=== PATIENT | female | born 1950 | race Caucasian/White ===

== ENCOUNTER → 2016-11-03 | Outpatient (CLI) | payer MEDICARE ==
--- NOTE | 2016-11-03 15:48 | XR ---
EXAMINATION TYPE: XR cervical spine comp DATE OF EXAM ORDERED: 11/03/2016 3:06 PM HISTORY: Neck pain and headaches. COMPARISON: None. FINDINGS: Vertebral body height and alignment are maintained. Atlantoaxial relationships are normal. There is disc space loss and hypertrophic spondylosis at C5-6. There is uncovertebral joint disease at this level. There is intervertebral foraminal narrowing on the right at C3-4, C4-5 and C5-6, maxim al at C5-6 and there is mild intervertebral foraminal narrowing at C4-5 and C5-6 on the left. IMPRESSION: 1. NO ACUTE OSSEOUS LESION. 2. DEGENERATIVE CHANGE. 3. MULTILEVEL INTERVERTEBRAL FORAMINAL NARROWING, MOST SEVERE AT C5-6 ON THE RIGHT.
== END | disposition home or self-care (01) ==
LOC: RADXRMAIN 14:36
PROVIDERS: ATTEND Internal Medicine
DX: M99.71 Connective tissue and disc stenosis of intervertebral foramina of cervical region (principal); M47.812 Spondylosis without myelopathy or radiculopathy, cervical region; R51 Headache
CPT/HCPCS: 72050

== ENCOUNTER 2016-11-14 10:50 | Emergency (ER) | payer MEDICARE ==
[2016-11-14 11:01] VITALS: BP 137/81; PULSE 76; RESP 20; TEMP 98.8
--- NOTE | 2016-11-14 11:18 | ED ---
Wound/Laceration HPI - General Chief Complaint: Wound/Laceration Stated Complaint: foot injury Time Seen by Provider: 11/14/16 11:08 Source: patient Mode of arrival: ambulatory Limitations: no limitations - History of Present Illness Initial Comments: This 66-year-old white female presents complaining of a left heel wound. She barely had a pedicure 4 days ago. They prescription off some skin around her heel. This caused a slight abrasion. The area has gradually swelled, and developed some erythema which has progressively worsened over the last 4 days. She has some minimal pain. She is not up-to-date on her tetanus prophylaxis and would like a tetanus shot. She's been applying peroxide as well as antibiotic ointment. No other complaints or modifying factors. No fevers or chills. - Related Data Home Medications Medication Instructions Recorded Confirmed ALPRAZolam [Xanax] 0.5 mg PO BID 07/01/16 07/23/16 Aspirin EC [Ecotrin Low Dose] 81 mg PO DAILY 07/01/16 07/23/16 HYDROcodone/APAP 5-325MG [[place] 1 tab PO Q6H PRN 07/01/16 07/23/16 5-325] Simvastatin [Zocor] 40 mg PO HS 07/01/16 07/23/16 Cranberry Fruit Concentrate 4,200 mg PO DIRECTED 07/22/16 07/23/16 [Cranberry] Previous Rx's Medication Instructions Recorded HYDROcodone/APAP 7.5-325MG [[place] 1 each PO Q4H PRN #60 tab 07/23/16 7.5] Sulfamethox-Tmp 800-160Mg [Bactrim 1 tab PO Q12HR #20 tab 11/14/16 DS 800-160 mg] Allergies Allergy/AdvReac Type Severity Reaction Status Date / Time Iodinated Contrast Media - Allergy Swelling, Verified 11/14/16 11:01 Oral and "welts" [Iodinated Contrast Media - IV Dye] Latex, Natural Rubber Allergy Rash/Hives Verified 11/14/16 11:01 Review of Systems ROS Statement: Those systems with pertinent positive or pertinent negative responses have been documented in the HPI. ROS Other: All systems not noted in ROS Statement are negative. Past Medical History Past Medical History: Hyperlipidemia, Osteoarthritis (OA) Additional Past Medical History / Comment(s): Kidney Stones. HX SURG for menorrhagia, fibroids. UA SHOWED SL BLOOD LAST MO, NO KNOWN REASON. History of Any Multi-Drug Resistant Organisms: None Reported Past Surgical History: Cholecystectomy, Hysterectomy, Orthopedic Surgery Additional Past Surgical History / Comment(s): ORIF LFA - 2 PLATES. Past Anesthesia/Blood Transfusion Reactions: No Reported Reaction Past Psychological History: ADD/ADHD, Panic Disorder Additional Psychological History / Comment(s): PATIENT REQUESTS RX ZEE ON ARRIVAL TO PREVENT PANIC ATTACK Smoking Status: Current every day smoker Past Alcohol Use History: Occasional Additional Past Alcohol Use History / Comment(s): SMOKING X15 YEARS, 1/2 PPD. Past Drug Use History: None Reported - Past Family History Mother Family Medical History: No Reported History General Exam Limitations: no limitations Extremities exam: Present: full ROM, other (Strength intact.) Neurological exam: Present: oriented X3 Skin exam: Present: other (There are 2 small abrasions noted to the left heel. There is some mild associated erythema and slight tenderness. There may be some minimal swelling.) Course Vital Signs 11/14/16 10:58 Temperature 98.8 F Pulse Rate 76 Respiratory 20 Rate Blood Pressure 137/81 O2 Sat by Pulse 98 Oximetry Medical Decision Making - Medical Decision Making The patient was seen and examined. A tetanus prophylaxis is given. It is felt as though she may have some mild cellulitis around the to abrasions. She is instructed to stop applying peroxide to the wound but continue with antibiotic ointment and to keep it covered. She understands and agrees with this plan and leaves in no distress. Return parameters are discussed. Disposition Clinical Impression: Abrasion, Cellulitis Disposition: HOME SELF-CARE Condition: Good Instructions: Abrasion (ED), Cellulitis (ED) Prescriptions: Sulfamethox-Tmp 800-160Mg [Bactrim DS 800-160 mg] 1 tab PO Q12HR #20 tab Referrals: Leo Rogers MD [Primary Care Provider] - 11/18/16 Time of Disposition: 11:17
[2016-11-14] MEDS ORDERED: DIPH,PERTUS(ACELL)TETVAC-LF 0.5 ML VIAL IM ONE (11:31)
== END 2016-11-14 11:57 | disposition home or self-care (01) ==
LOC: EC 10:50
DX: L03.116 Cellulitis of left lower limb (principal); M19.90 Unspecified osteoarthritis, unspecified site; E78.5 Hyperlipidemia, unspecified; F41.0 Panic disorder [episodic paroxysmal anxiety]; F17.200 Nicotine dependence, unspecified, uncomplicated; Z23 Encounter for immunization; Z79.82 Long term (current) use of aspirin; Z79.899 Other long term (current) drug therapy; Z91.041 Radiographic dye allergy status; Z91.040 Latex allergy status
CPT/HCPCS: 90471; 90715; 99282

== ENCOUNTER → 2017-03-30 | Outpatient (CLI) | payer MEDICARE ==
[2017-03-30 12:04] LABS: ALT 28 U/L (9-52); AST 18 U/L (14-36); Alkaline Phosphatase 75 U/L (38-126); Anion Gap 9 mmol/L; Blood Urea Nitrogen 13 mg/dL (7-17); Calcium 9.3 mg/dL (8.4-10.2); Carbon Dioxide 25 mmol/L (22-30); Chloride 110 mmol/L (98-107); Cholesterol 209 mg/dL (<200); Glucose 100 mg/dL (74-99); HDL Cholesterol 37 mg/dL (40-60); Non-African American GFR(MDRD) >60 (>60 ml/min/1.73 sqM); Potassium 4.2 mmol/L (3.5-5.1); Sodium 144 mmol/L (137-145); Total Bilirubin 0.4 mg/dL (0.2-1.3); Total Protein 7.4 g/dL (6.3-8.2); Triglycerides 269 mg/dL (<150)
[2017-03-30 12:08] LABS: CH 30.4; CHCM 33.5; HCT 40.1 % (34.0-46.0); HDW 2.75; HGB 13.5 gm/dL (11.4-16.0); MCH 30.8 pg (25.0-35.0); MCHC 33.8 g/dL (31.0-37.0); MCV 91.2 fL (80.0-100.0); Mean Platelet Volume 9.2; RDW 13.9 % (11.5-15.5); WBC 6.9 k/uL (3.8-10.6)
[2017-03-30 12:35] LABS: Hepatitis B Surface Ag Index 0.07
[2017-03-30 12:41] LABS: Hepatitis B Core IgM Index 0.06
[2017-03-30 12:52] LABS: Hepatitis C Virus IgG Ab Negative (Negative); Hepatitis C Virus IgG Index 0.04
== END | disposition home or self-care (01) ==
LOC: LABWHC1 11:18
PROVIDERS: ATTEND Internal Medicine
DX: Z00.01 Encounter for general adult medical examination with abnormal findings (principal); E78.2 Mixed hyperlipidemia; M19.90 Unspecified osteoarthritis, unspecified site; R94.5 Abnormal results of liver function studies; R10.9 Unspecified abdominal pain
CPT/HCPCS: 36415; 80053; 80061; 80074; 84439; 84443; 85027

== ENCOUNTER 2017-05-08 12:27 | Emergency (ER) | payer MEDICARE ==
[2017-05-08] MEDS ORDERED: SODIUM CHLORIDE 0.9% 1,000 ML IV STA ×2 (14:44)
[2017-05-08] MEDS ORDERED: ONDANSETRON 4 MG/2 ML VIAL IVP STA (14:44)
[2017-05-08] MEDS ORDERED: HYDROmorphone 1 MG/ML 1 ML SYRINGE IVP STA ×2 (14:44→15:28)
[2017-05-08 14:58] LABS: Basophils # (A) 0.1 k/uL (0-0.2); Basophils % (A) 1 %; CH 31.7; Eosinophils # (A) 0.2 k/uL (0-0.7); Eosinophils % (A) 2 %; HCT 43.2 % (34.0-46.0); HDW 2.64; HGB 14.1 gm/dL (11.4-16.0); Luc # (Auto) 0.14; Luc % (Auto) 2; Lymphocytes # (A) 1.7 k/uL (1.0-4.8); Lymphocytes % (A) 22 %; MCH 30.6 pg (25.0-35.0); MCHC 32.5 g/dL (31.0-37.0); Mean Platelet Volume 7.8; Monocytes # (A) 0.4 k/uL (0-1.0); Monocytes % (A) 5 %; Neutrophils # (A) 5.2 k/uL (1.3-7.7); Neutrophils % (A) 68 %; RDW 14.9 % (11.5-15.5); WBC 7.7 k/uL (3.8-10.6); WBC (Perox) 7.41
--- NOTE | 2017-05-08 15:06 | ED ---
General Adult HPI - General Chief complaint: Abdominal Pain Stated complaint: Abd Pain-poss kidney stones Time Seen by Provider: 05/08/17 14:38 Source: patient, RN notes reviewed Mode of arrival: ambulatory Limitations: no limitations - History of Present Illness Initial comments: Chief complaint history of present illness is a 66-year-old female complaining of on again off again pain in the right flank radiates around toward the right abdomen area. Mild nausea but no vomiting. Patient has had history of kidney stones several times in the past. Patient thinks another kidney stone. This particular pain has been ongoing for one week. The patient does state when questioned if she had noticed any dark urine she's had on several occasions and looked very red. She continues drinking large amounts of fluid until it cleared. We did discuss possibility of a kidney or bladder tumor causing this. The patient has an ALLERGY to iodine contrast. A regular CT without contrast will be done at this time. She'll be following up with her family doctor and urology. - Related Data Home Medications Medication Instructions Recorded Confirmed Aspirin EC [Ecotrin Low Dose] 81 mg PO DAILY 07/01/16 05/08/17 Levothyroxine Sodium [Synthroid] 25 mcg PO DAILY 05/08/17 05/08/17 Previous Rx's Medication Instructions Recorded Hydrocodone/Acetaminophen [[place] 1 each PO Q6HR PRN #15 tab 05/08/17 5-325] Metoclopramide HCl [Reglan] 10 mg PO Q8H #9 tablet 05/08/17 Tamsulosin [Flomax] 0.4 mg PO DAILY #14 cap 05/08/17 Allergies Allergy/AdvReac Type Severity Reaction Status Date / Time Iodinated Contrast- Oral and Allergy Swelling, Verified 05/08/17 14:53 IV Dye "welts" [Iodinated Contrast Media - IV Dye] Latex, Natural Rubber Allergy Rash/Hives Verified 05/08/17 14:53 Review of Systems ROS Statement: Those systems with pertinent positive or pertinent negative responses have been documented in the HPI. Review of systems no headache or visual acuity changes no chest pain or shortness of breath minimal nausea. Discomfort in the right flank coming around towards the right mid abdomen. Decreased appetite. No complaint of any neuro deficits. All systems are reviewed. Past medical problems significant for hyperlipidemia, osteoarthritis, kidney stones on 2 previous occasions. Surgeries gallbladder, hysterectomy, open reduction internal fixation over 40 years ago to left forearm fracture. Family history daughter has kidney stones. Patient does smoke strongly encouraged stop , drinks alcohol socially. ROS Other: All systems not noted in ROS Statement are negative. Past Medical History Past Medical History: Hyperlipidemia, Osteoarthritis (OA) Additional Past Medical History / Comment(s): Kidney Stones. HX SURG for menorrhagia, fibroids. UA SHOWED SL BLOOD LAST MO, NO KNOWN REASON. History of Any Multi-Drug Resistant Organisms: None Reported Past Surgical History: Cholecystectomy, Hysterectomy, Orthopedic Surgery Additional Past Surgical History / Comment(s): ORIF LFA - 2 PLATES. Past Anesthesia/Blood Transfusion Reactions: No Reported Reaction Past Psychological History: ADD/ADHD, Panic Disorder Smoking Status: Current every day smoker Past Alcohol Use History: Occasional Past Drug Use History: None Reported - Past Family History Mother Family Medical History: No Reported History General Exam - General Exam Comments Initial Comments: General: The patient is awake and alert, complaining of discomfort to the right flank radiates toward the right mid abdomen. History of kidney stones in the past. Patient thinks she had another kidney stone. Vital signs shows temperature 97.4 pulse 65 respiratory rate 24 pulse ox on percent room air blood pressure 175/79 Eye: Pupils are equal, round and reactive to light, extra-ocular movements are intact ; there is normal conjunctiva bilaterally. No signs of icterus. Ears, nose, mouth and throat: There are moist mucous membranes and no oral lesions. Neck: The neck is supple, there is no tenderness . Cardiovascular: There is a regular rate and rhythm. No murmur, rub or gallop is appreciated. Respiratory: Lungs are clear to auscultation, respirations are non-labored, breath sounds are equal. No wheezes, stridor, rales, or rhonchi. Gastrointestinal: Right flank discomfort radiates to the mid right abdomen. No organomegaly. Positive right flank discomfort with kidney punch his. Back: No rash noted. Positive discomfort with right kidney punch is Musculoskeletal: Normal ROM, no tenderness, There is no pedal edema. There is no calf tenderness or swelling. Sensation intact. Pulses equal bilaterally 2+. Neurological: No evidence of her complains of any neuro deficits walking talking balance good. Skin: Skin is warm and dry and no rashes or lesions are noted. Limitations: no limitations Course Vital Signs 05/08/17 05/08/17 12:29 14:26 Temperature 98.9 F 97.4 F L Pulse Rate 77 65 Respiratory 20 24 Rate Blood Pressure 152/71 175/79 O2 Sat by Pulse 99 100 Oximetry Medical Decision Making - Medical Decision Making Medical decision making patient's white count 7.7 hemoglobin 14 hematocrit of 4.3, potassium 4.2 with a BUN 8 creatinine 0.6 GFR greater than 60. Glucose 84 amylase lipase normal limits. Urine shows 4 red less than 1 white. No signs of bacteria. X-ray of the abdomen was done and reviewed by radiologist her findings are scattered gas is seen in nondistended small bowel loops. Moderate amount of retained stool is within the nondistended colon. There is no visceromegaly, pneumoperitoneum, or abnormal calcifications appreciated. The lung bases are clear and the osseous structures are intact. Impression nonobstructive bowel gas pattern with moderate amount of retained colonic stool. As read by Dr. Lynch CT the abdomen and pelvis was done and reevaluation of possible kidney stone. The significant findings by the radiologist include low-density 1.2 cm right adrenal gland nodule fits criteria for lipid to Darryl adrenal gland adenoma. There is re-demonstration of unchanged diffuse thickening of the left adrenal gland, likely related to adrenal gland hyperplasia. Kidneys; mild right hydronephrosis and proximal hydroureter as well as minimal right ureteral uroepithelial thickening are appreciated, likely secondary to a recently passed calculus as no ureteral calculi are seen although a phlebolith is seen just adjacent to the right distal ureter. Punctate left upper pole nonobstructing renal calculus is appreciated. The previously seen hypodense lesion within the posterior upper pole of the right kidney is again too small to accurately characterize it better appreciated on the contrast enhanced imaging prior examination of 07-01-2016. Uterus is again surgically absent left ovarian cyst is stable from the prior exam measuring 2.4 cm. Impression #1 mild right [place] ureteronephrosis and ureteral hyperemia with no radiopaque calculus. Findings likely related to recently passed calculus or non-radiopaque calculus. #2 punctate nonobstructing left renal calculus. #3 unchanged 2.4 cm left ovarian cystic lesion. And he will follow up with ultrasound is recommended in a postmenopausal female. As read by Dr. Lynch I discussed with the patient and at bedside the findings of both the kidney, ureter, possible non-radiopaque or passed stone. As well as ovarian cystic lesion that needs follow-up with [facility]. The patient was advised to take medications for renal pain including Flomax, pain medication and antinausea medications and increase fluids and strain her urine. Advised to follow-up with urology for evaluation of the hypodense lesion in the kidney we did discuss possibility of kidney tumors. Also follow- up with [facility] for the left ovarian cyst. On discharge patient is feeling better. - Lab Data Result diagrams: 05/08/17 14:40 05/08/17 14:40 Lab Results 05/08/17 05/08/17 05/08/17 Range/Units 14:40 14:40 14:50 WBC 7.7 (3.8-10.6) k/uL RBC 4.60 (3.80-5.40) m/uL Hgb 14.1 (11.4-16.0) gm/dL Hct 43.2 (34.0-46.0) % MCV 94.0 (80.0-100.0) fL MCH 30.6 (25.0-35.0) pg MCHC 32.5 (31.0-37.0) g/dL RDW 14.9 (11.5-15.5) % Plt Count 227 (150-450) k/uL Neutrophils % 68 % Lymphocytes % 22 % Monocytes % 5 % Eosinophils % 2 % Basophils % 1 % Neutrophils # 5.2 (1.3-7.7) k/uL Lymphocytes # 1.7 (1.0-4.8) k/uL Monocytes # 0.4 (0-1.0) k/uL Eosinophils # 0.2 (0-0.7) k/uL Basophils # 0.1 (0-0.2) k/uL Sodium 144 (137-145) mmol/L Potassium 4.2 (3.5-5.1) mmol/L Chloride 109 H (98-107) mmol/L Carbon Dioxide 24 (22-30) mmol/L Anion Gap 11 mmol/L BUN 8 (7-17) mg/dL Creatinine 0.60 (0.52-1.04) mg/dL Est GFR (MDRD) Af Amer >60 (>60 ml/min/1.73 sqM) Est GFR (MDRD) Non-Af >60 (>60 ml/min/1.73 sqM) Glucose 84 (74-99) mg/dL Calcium 9.5 (8.4-10.2) mg/dL Total Bilirubin 0.4 (0.2-1.3) mg/dL AST 18 (14-36) U/L ALT 37 (9-52) U/L Alkaline Phosphatase 74 (38-126) U/L Total Protein 7.2 (6.3-8.2) g/dL Albumin 4.2 (3.5-5.0) g/dL Amylase 41 (30-110) U/L Lipase 56 (23-300) U/L Urine Color Light Yellow Urine Appearance Clear (Clear) Urine pH 7.0 (5.0-8.0) Ur Specific [place] 1.005 (1.001-1.035) Urine Protein Negative (Negative) Urine Glucose (UA) Negative (Negative) Urine Ketones Negative (Negative) Urine Blood Small H (Negative) Urine Nitrite Negative (Negative) Urine Bilirubin Negative (Negative) Urine Urobilinogen <2.0 (<2.0) mg/dL Ur Leukocyte Esterase Negative (Negative) Urine RBC 4 (0-5) /hpf Urine WBC <1 (0-5) /hpf Ur Squamous Epith Cells <1 (0-4) /hpf Urine Mucus Rare H (None) /hpf Disposition Clinical Impression: Kidney stone on right side Disposition: HOME SELF-CARE Condition: Fair Instructions: Kidney Stones (ED), Renal Colic (ED), How to Strain Your Urine ( ED) Additional Instructions: Strain her urine, increase fluids. Take medications as directed. Follow-up with urology for further evaluation concerning the hypodense lesion within the right kidney. Follow-up with your [facility] for left ovarian cyst Prescriptions: Hydrocodone/Acetaminophen [[place] 5-325] 1 each PO Q6HR PRN #15 tab PRN Reason: Pain Metoclopramide HCl [Reglan] 10 mg PO Q8H #9 tablet Tamsulosin [Flomax] 0.4 mg PO DAILY #14 cap Referrals: Leo Rogers MD [Primary Care Provider] - 1-2 days Time of Disposition: 17:40
[2017-05-08 15:08] LABS: ALT 37 U/L (9-52); AST 18 U/L (14-36); Alkaline Phosphatase 74 U/L (38-126); Amylase 41 U/L (30-110); Anion Gap 11 mmol/L; Blood Urea Nitrogen 8 mg/dL (7-17); Calcium 9.5 mg/dL (8.4-10.2); Carbon Dioxide 24 mmol/L (22-30); Chloride 109 mmol/L (98-107); Glucose 84 mg/dL (74-99); Non-African American GFR(MDRD) >60 (>60 ml/min/1.73 sqM); Potassium 4.2 mmol/L (3.5-5.1); Sodium 144 mmol/L (137-145); Total Bilirubin 0.4 mg/dL (0.2-1.3); Total Protein 7.2 g/dL (6.3-8.2)
--- NOTE | 2017-05-08 15:16 | XR ---
EXAMINATION TYPE: XR abdomen 2V DATE OF EXAM: 05/08/2017 CLINICAL HISTORY: Right-sided flank pain for 3 weeks with history of nephrolithiasis, hysterectomy, a nd cholecystectomy. TECHNIQUE: Supine and upright views of the abdomen are obtained. COMPARISON: None. FINDINGS: Scattered gas is seen in non-distended small bowel loops. Moderate amount of retained stoo l is seen within the non-distended colon. There is no visceromegaly, pneumoperitoneum, or abnormal calcification appreciated. The lung bases are clear and the osseous structures are intact. IMPRESSION: Nonobstructive bowel gas pattern with moderate amount of retained colonic stool.
[2017-05-08 15:29] LABS: Appearance,Urine Clear (Clear); Bilirubin,Urine Negative (Negative); Glucose,Urine (UA) Negative (Negative); Ketones,Urine Negative (Negative); Leukocyte Esterase,Urine Negative (Negative); Mucus,Urine Rare /hpf; Nitrite,Urine Negative (Negative); Particle Count 1028; Protein,Urine Negative (Negative); RBC,Urine 4 /hpf (0-5); Specific Gravity,Urine 1.005 (1.001-1.035); Squamous Epithelial Cell,Urine <1 /hpf (0-4); UA Billing (MACRO vs. MICRO) MICRO; Urobilinogen,Urine <2.0 mg/dL (<2.0); WBC,Urine <1 /hpf (0-5)
--- NOTE | 2017-05-08 15:56 | CT ---
EXAMINATION TYPE: CT abdomen pelvis wo con DATE OF EXAM: 05/08/2017 COMPARISON: 07/01/2016 HISTORY: Patient complains of right flank pain with a history of prior renal stones. CT DLP: 862 mGycm Automated exposure control for dose reduction was used. TECHNIQUE: Helical acquisition of images was performed from the lung bases through the pelvis. FINDINGS: LUNG BASES: No significant abnormality is appreciated. LIVER/GB: There is redemonstration numerous hypoattenuated hepatic lesions, some which could diagnost ic criteria for a cyst and others which are too small to accurately characterize. The largest is seen in segment 6 measuring 1.9 cm. Gallbladder is surgically absent and there is postsurgical dilatation of the common bile duct. Mild intrahepatic biliary ductal dilatation is also seen. PANCREAS: No significant abnormality is seen. SPLEEN: No significant abnormality is seen. ADRENALS: Low-density 1.2 cm right adrenal gland nodule fits criteria of a lipid rich adrenal gland a denoma. There is redemonstration of unchanged diffuse thickening of the left adrenal gland, likely re lated to adrenal gland hyperplasia. KIDNEYS: Mild right hydronephrosis and proximal hydroureter as well as minimal right ureteral uroepit helial thickening are appreciated, likely secondary to a recently passed calculus as no ureteral calc fanny are seen although a phlebolith is seen just adjacent to the right distal ureter. Punctate left up per pole nonobstructing renal calculus is appreciated. The previously seen hypodense lesion within th e posterior upper pole of the right kidney is again too small to accurately characterize and better a ppreciated on the contrast-enhanced prior examination of 07/01/2016. FREE AIR: No free air is visualized RETROPERITONEAL ADENOPATHY: None visualized REPRODUCTIVE ORGANS: Uterus is again surgically absent and left ovarian cyst is stable from the prior exam measuring 2.4 cm. URINARY BLADDER: No significant abnormality is seen. PELVIC ADENOPATHY: None visualized. OSSEOUS STRUCTURES: No suspicious abnormality is seen. Mild degenerative changes are again seen of t he lumbar spine. BOWEL: No significant abnormality is seen. Small hiatal hernia is redemonstrated. Diastases recti is also seen. OTHER: Moderate calcific atheromatous changes are seen of the abdominal aorta and its branches. IMPRESSION: 1. MILD RIGHT HYDROURETERONEPHROSIS AND URETERAL HYPEREMIA WITH NO RADIOPAQUE CALCULUS. FINDINGS LIKE LY RELATE TO RECENTLY PASSED CALCULUS OR NONRADIOPAQUE CALCULUS. 2. PUNCTATE NONOBSTRUCTING LEFT RENAL CALCULUS. 3. UNCHANGED 2.4 CM LEFT OVARIAN CYSTIC LESION. ANNUAL FOLLOW-UP WITH ULTRASOUND IS RECOMMENDED IN A POSTMENOPAUSAL FEMALE.
[2017-05-08 18:05] VITALS: BP 119/57; PULSE 68; RESP 18; TEMP 97.2
== END 2017-05-08 18:04 | disposition home or self-care (01) ==
LOC: EC 12:27
DX: N20.0 Calculus of kidney (principal); N13.30 Unspecified hydronephrosis; N13.4 Hydroureter; N83.202 Unspecified ovarian cyst, left side; R11.0 Nausea; E27.8 Other specified disorders of adrenal gland; M19.90 Unspecified osteoarthritis, unspecified site; F17.200 Nicotine dependence, unspecified, uncomplicated; Z79.82 Long term (current) use of aspirin; Z79.899 Other long term (current) drug therapy; Z91.040 Latex allergy status; Z91.041 Radiographic dye allergy status; Z90.49 Acquired absence of other specified parts of digestive tract; Z90.710 Acquired absence of both cervix and uterus
CPT/HCPCS: 36415; 80053; 82150; 83690; 85025; 81001; 87086; 74020; 74176; 99284; 96374; 96375; 96376; 96361 ×3; J2405; J1170

== ENCOUNTER → 2017-06-23 | Outpatient (CLI) | payer MEDICARE ==
[2017-06-23 08:59] LABS: CH 30.5; CHCM 31.9; HCT 41.8 % (34.0-46.0); HDW 2.69; HGB 13.6 gm/dL (11.4-16.0); MCH 31.3 pg (25.0-35.0); MCHC 32.6 g/dL (31.0-37.0); MCV 96.2 fL (80.0-100.0); Mean Platelet Volume 7.6; RBC 4.34 m/uL (3.80-5.40); RDW 14.1 % (11.5-15.5); WBC 7.5 k/uL (3.8-10.6)
[2017-06-23 09:05] LABS: ALT 35 U/L (9-52); AST 18 U/L (14-36); Alkaline Phosphatase 83 U/L (38-126); Anion Gap 9 mmol/L; Blood Urea Nitrogen 11 mg/dL (7-17); Calcium 9.6 mg/dL (8.4-10.2); Carbon Dioxide 26 mmol/L (22-30); Chloride 110 mmol/L (98-107); Glucose 119 mg/dL (74-99); Non-African American GFR(MDRD) >60 (>60 ml/min/1.73 sqM); Potassium 4.7 mmol/L (3.5-5.1); Sodium 145 mmol/L (137-145); Total Bilirubin 0.2 mg/dL (0.2-1.3); Total Protein 7.1 g/dL (6.3-8.2)
== END | disposition home or self-care (01) ==
LOC: LABWHC1 08:23
PROVIDERS: ATTEND Internal Medicine
DX: E03.9 Hypothyroidism, unspecified (principal); E78.2 Mixed hyperlipidemia; M54.5 Low back pain
CPT/HCPCS: 36415; 80053; 84439; 84443; 85027

== ENCOUNTER → 2017-06-30 | Outpatient (CLI) | payer MEDICARE ==
--- NOTE | 2017-06-30 09:41 | MM ---
Reason for exam: screening (asymptomatic). Last mammogram was performed 1 year and 8 months ago. History: Patient is postmenopausal. Physical Findings: A clinical breast exam by your physician is recommended on an annual basis and results should be correlated with mammographic findings. MG 3D Screening Mammo W/Cad Bilateral CC and MLO view(s) were taken. Prior study comparison: November 01, 2015, bilateral MG 3d screening mammo w/cad. August 01, 2014, bilateral MG screening mammo w CAD. There are scattered fibroglandular densities. There is no discrete abnormality. ASSESSMENT: Negative, BI-RAD 1 RECOMMENDATION: Routine screening mammogram of both breasts in 1 year.
== END | disposition home or self-care (01) ==
LOC: RADMAMWWP 07:43
PROVIDERS: ATTEND Obstetrics & Gynecology Obstetrics
DX: Z12.31 Encounter for screening mammogram for malignant neoplasm of breast (principal)
CPT/HCPCS: 77063; G0202

== ENCOUNTER → 2017-12-18 | Outpatient (CLI) | payer MEDICARE ==
[2017-12-18 12:14] LABS: HCT 39.3 % (34.0-46.0); HGB 13.3 gm/dL (11.4-16.0); MCH 30.4 pg (25.0-35.0); MCHC 33.8 g/dL (31.0-37.0); MCV 89.8 fL (80.0-100.0); Mean Platelet Volume 8.7; Platelet Count 223 k/uL (150-450); RBC 4.37 m/uL (3.80-5.40); RDW 13.8 % (11.5-15.5); WBC 7.4 k/uL (3.8-10.6)
[2017-12-18 12:48] LABS: ALT 31 U/L (9-52); AST 19 U/L (14-36); Albumin 3.9 g/dL (3.5-5.0); Alkaline Phosphatase 79 U/L (38-126); Anion Gap 11 mmol/L; Blood Urea Nitrogen 12 mg/dL (7-17); Calcium 9.7 mg/dL (8.4-10.2); Carbon Dioxide 28 mmol/L (22-30); Chloride 108 mmol/L (98-107); Cholesterol 215 mg/dL (<200); Glucose 95 mg/dL (74-99); HDL Cholesterol 33 mg/dL (40-60); LDL Cholesterol,Calculated 129 mg/dL (0-99); Potassium 4.3 mmol/L (3.5-5.1); Sodium 147 mmol/L (137-145); Total Bilirubin 0.2 mg/dL (0.2-1.3); Total Protein 7.3 g/dL (6.3-8.2); Triglycerides 267 mg/dL (<150)
[2017-12-18 13:09] LABS: T4, Free (Free Thyroxine) 0.83 ng/dL (0.78-2.19)
== END | disposition home or self-care (01) ==
LOC: LABWHC1 11:44
PROVIDERS: ATTEND Internal Medicine
DX: E03.9 Hypothyroidism, unspecified (principal); E78.2 Mixed hyperlipidemia; K21.0 Gastro-esophageal reflux disease with esophagitis
CPT/HCPCS: 36415; 80053; 80061; 84439; 84443; 85027

== ENCOUNTER → 2018-06-21 | Outpatient (CLI) | payer MEDICARE ==
[2018-06-21 10:49] LABS: HCT 44.1 % (34.0-46.0); HGB 14.1 gm/dL (11.4-16.0); MCH 29.6 pg (25.0-35.0); MCHC 31.9 g/dL (31.0-37.0); Mean Platelet Volume 7.3; Platelet Count 243 k/uL (150-450); RBC 4.75 m/uL (3.80-5.40); RDW 13.9 % (11.5-15.5); WBC 7.7 k/uL (3.8-10.6)
[2018-06-21 11:05] LABS: Partial Thromboplastin Time 24.7 sec (22.0-30.0); Prothrombin Time 9.9 sec (9.0-12.0)
[2018-06-21 11:09] LABS: Anion Gap 8 mmol/L; Blood Urea Nitrogen 13 mg/dL (7-17); Calcium 9.7 mg/dL (8.4-10.2); Carbon Dioxide 24 mmol/L (22-30); Chloride 112 mmol/L (98-107); Glucose 97 mg/dL (74-99); Potassium 4.7 mmol/L (3.5-5.1); Sodium 144 mmol/L (137-145)
[2018-06-21 11:48] LABS: Appearance,Urine Clear (Clear); Bilirubin,Urine Negative (Negative); Blood,Urine Moderate (Negative); Color,Urine Yellow; Glucose,Urine (UA) Negative (Negative); Ketones,Urine Negative (Negative); Leukocyte Esterase,Urine Negative (Negative); Mucus,Urine Rare /hpf; Nitrite,Urine Negative (Negative); PH, Urine 6.5 (5.0-8.0); Protein,Urine Negative (Negative); RBC,Urine 43 /hpf (0-5); Specific Gravity,Urine 1.016 (1.001-1.035); Squamous Epithelial Cell,Urine <1 /hpf (0-4); Urobilinogen,Urine <2.0 mg/dL (<2.0); WBC,Urine 1 /hpf (0-5)
== END | disposition home or self-care (01) ==
LOC: LABPAT 10:09
PROVIDERS: ATTEND Internal Medicine
DX: Z01.812 Encounter for preprocedural laboratory examination (principal); Z01.818 Encounter for other preprocedural examination; D68.9 Coagulation defect, unspecified
CPT/HCPCS: 36415; 80048; 81001; 85027; 85610; 85730; 93005

== ENCOUNTER → 2018-06-29 | Outpatient (CLI) | payer MEDICARE ==
--- NOTE | 2018-06-29 16:48 | US ---
EXAMINATION TYPE: US kidneys/renal and bladder DATE OF EXAM: 06/29/2018 COMPARISON: 05/08/2017 CT without IV contrast CLINICAL HISTORY: hematuria R31.9. EXAM MEASUREMENTS: Right Kidney: 12.6 x 4.8 x 4.8 cm. No hydronephrosis or masses seen Left Kidney: 11.0 x 5.8 x 4.6 cm. 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 Bladder: wnl. IMPRESSION: No acute process.
== END | disposition home or self-care (01) ==
LOC: RADUSWWP 15:10
PROVIDERS: ATTEND Internal Medicine
DX: R31.9 Hematuria, unspecified (principal)
CPT/HCPCS: 76770

== ENCOUNTER 2018-11-21 08:54 | Emergency (ER) | payer MEDICARE, OTHER ==
[2018-11-21 09:00] VITALS: TEMP 98.8
[2018-11-21] MEDS ORDERED: DIAZEPAM 5 MG/ML 2 ML INJ IVP STA (09:19)
[2018-11-21] MEDS ORDERED: HYDROmorphone 1 MG/ML 1 ML SYRINGE IVP STA (09:19)
[2018-11-21] MEDS ORDERED: DEXAMETHASONE SOD PHOSPHATE 10 MG/ML 1 ML VIAL IV STA (09:20)
[2018-11-21] MEDS ORDERED: KETOROLAC 30 MG/ML 1 ML VIAL IVP STA (09:21)
--- NOTE | 2018-11-21 09:24 | ED ---
Back Pain HPI - General Chief Complaint: Back Pain/Injury Stated Complaint: BACK PAIN Time Seen by Provider: 11/21/18 08:59 Source: patient, EMS, RN notes reviewed, old records reviewed Limitations: no limitations - History of Present Illness Initial Comments: Patient is a 60-year-old female who presents emergency department today with chief complaint of lower back pain radiating down her right leg. Patient reports that she's had history of sciatica before but never this severe. Patient reports that she was cleaning her bathroom 3 days ago and felt a small pain in her back at that time. Patient reports that her symptoms have progressed. She arrived via EMS that she is unable to ambulate. Patient states that she did have some loss of control of her urine getting to the bathroom yesterday. Patient states that she has pain radiating across the mid to lower back and down the right leg. She denies any peripheral paresthesias and reports from a sensation of both lower extremities. - Related Data Home Medications Medication Instructions Recorded Confirmed Aspirin EC [Ecotrin Low Dose] 81 mg PO DAILY 07/01/16 05/08/17 Levothyroxine Sodium [Synthroid] 25 mcg PO DAILY 05/08/17 05/08/17 Previous Rx's Medication Instructions Recorded Hydrocodone/Acetaminophen [[place] 1 each PO Q6HR PRN #15 tab 05/08/17 5-325] Metoclopramide HCl [Reglan] 10 mg PO Q8H #9 tablet 05/08/17 Tamsulosin [Flomax] 0.4 mg PO DAILY #14 cap 05/08/17 Cyclobenzaprine [Flexeril] 10 mg PO TID #15 tab 11/21/18 Dexamethasone 0.75 mg PO DAILY #12 tab 11/21/18 HYDROcodone/APAP 5-325MG [[place] 1 tab PO Q6HR PRN #10 tab 11/21/18 5-325] Ibuprofen 600 mg PO TID #20 tablet 11/21/18 Allergies Allergy/AdvReac Type Severity Reaction Status Date / Time Iodinated Contrast- Oral and Allergy Swelling, Verified 11/21/18 09:01 IV Dye "welts" [Iodinated Contrast Media - IV Dye] Latex, Natural Rubber Allergy Rash/Hives Verified 11/21/18 09:01 Review of Systems ROS Statement: Those systems with pertinent positive or pertinent negative responses have been documented in the HPI. ROS Other: All systems not noted in ROS Statement are negative. Past Medical History Past Medical History: Hyperlipidemia, Osteoarthritis (OA) Additional Past Medical History / Comment(s): Kidney Stones. HX SURG for menorrhagia, fibroids. UA SHOWED SL BLOOD LAST MO, NO KNOWN REASON. History of Any Multi-Drug Resistant Organisms: None Reported Past Surgical History: Cholecystectomy, Hysterectomy, Orthopedic Surgery Additional Past Surgical History / Comment(s): ORIF LFA - 2 PLATES., foot surgery Past Anesthesia/Blood Transfusion Reactions: No Reported Reaction Past Psychological History: ADD/ADHD, Panic Disorder Smoking Status: Current every day smoker Past Alcohol Use History: Occasional Past Drug Use History: None Reported - Past Family History Mother Family Medical History: No Reported History General Exam - General Exam Comments Initial Comments: this Patient is a 68-year-old female. Alert and oriented 3. Patient appears in moderate discomfort. Limitations: no limitations General appearance: alert, in no apparent distress Head exam: Present: atraumatic, normocephalic, normal inspection Eye exam: Present: normal appearance, PERRL, EOMI. Absent: scleral icterus, conjunctival injection, periorbital swelling ENT exam: Present: normal exam, mucous membranes moist Neck exam: Present: normal inspection. Absent: tenderness, meningismus, lymphadenopathy Respiratory exam: Present: normal lung sounds bilaterally. Absent: respiratory distress, wheezes, rales, rhonchi, stridor Cardiovascular Exam: Present: regular rate, normal rhythm, normal heart sounds. Absent: systolic murmur, diastolic murmur, rubs, gallop, clicks GI/Abdominal exam: Present: soft, normal bowel sounds. Absent: distended, tenderness, guarding, rebound, rigid Extremities exam: Present: normal inspection, full ROM, normal capillary refill , other (and is pain with range of motion of the L hip). Absent: tenderness, pedal edema, joint swelling, calf tenderness Neurological exam: Present: alert Course Vital Signs 11/21/18 11/21/18 08:56 11:22 Temperature 98.8 F Pulse Rate 99 83 Respiratory 30 H 18 Rate Blood Pressure 106/88 121/55 O2 Sat by Pulse 100 100 Oximetry Medical Decision Making - Medical Decision Making 60-year-old female presents or urgency with acute lower back pain rating on the right leg. Patient's had symptoms for 3 days. and arrived adn given pain medication from the EMS. Patient appears in moderate to severe discomfort Patient is given IV Valium and Toradol Dilaudid. She does have relief in her symptoms afterwards. She denies any saddle anesthesias. States that she has felt better on reevaluation. CT of the lumbar spine was completed. This shows evidence of L4-L5 disc herniation. Discussed PCP and ortho spine follow up. - Radiology Data Radiology results: report reviewed No vertebral compression or collapse or malalignment. Mild multilevel degenerative disc disease additional facet arthropathy mid to lower lumbar spine. Along with diffuse disc bulge and may be superimposed right paracentral herniation L4-L5 that could potentially affect the transversing right L5 nerve root. Correlating for any radicular symptoms. Mild right-sided neural foraminal stenosis noted at this level. Disposition Clinical Impression: L4-L5 disc bulge, Right sided sciatica Disposition: HOME SELF-CARE Condition: Good Instructions (If sedation given, give patient instructions): Acute Low Back Pain (ED) Additional Instructions: Patient denies to follow-up with work station support specialist. Take the medication as prescribed. Patient apply warm compresses over her back. Patient needs to follow-up with PCP. Return to the emergency department if any alarming signs or symptoms occur. Prescriptions: Cyclobenzaprine [Flexeril] 10 mg PO TID #15 tab Dexamethasone 0.75 mg PO DAILY #12 tab HYDROcodone/APAP 5-325MG [[place] 5-325] 1 tab PO Q6HR PRN #10 tab PRN Reason: Pain Ibuprofen 600 mg PO TID #20 tablet Is patient prescribed a controlled substance at d/c from ED?: Yes When asked, does pt state using other controlled substances?: No If prescribed controlled substance>3 days was MAPS reviewed?: Prescribed <3 Days If opioid is for acute pain is fill amount 7 days or less?: Yes If Rx opioid, was Start Talking consent form obtained?: Yes Referrals: Leo Rogers MD [Primary Care Provider] - 1-2 days Time of Disposition: 11:05
--- NOTE | 2018-11-21 10:06 | CT ---
EXAMINATION TYPE: CT lumbar spine wo con DATE OF EXAM: 11/21/2018 COMPARISON: None HISTORY: 68 year-old female injured back bending over cleaning 3 days ago, unable to ambulate TECHNIQUE: Contiguous axial scanning of the lumbar spine without IV contrast. Coronal and sagittal re constructions performed. CT DLP: 722.9 mGycm Automated exposure control for dose reduction was used. FINDINGS: Diffuse thickening of the bilateral adrenal glands without discrete nodularity. Suggestion of underly ing cyst in the medial right liver lobe measuring 2.3 cm. There is fusiform ectasia of the infrarenal abdominal aorta measuring up to 2.6 cm. Very patchy heterogeneity of the vertebral bodies likely due to underlying osteopenia. Vertebral body heights are preserved and alignment is maintained. Facet arthropathy mid to lower lumbar spine. Multilevel mild degenerative disc disease characterized by diffuse disc bulging. Minimal vacuum is pr esent within the left side of the L5-S1 intervertebral disc. No kendell canal compromise is identified. On the left, changes cause minimal narrowing of the L3-S1 neuroforamen. On the right, changes result in mild L4-L5 foraminal stenosis. At L4-L5, there may be a right paracentral component to the disc bulge, refer to axial image 59. This could potentially affect the traversing right L5 nerve root. No prevertebral or paravertebral soft tissue abnormality seen. IMPRESSION: 1. NO VERTEBRAL COMPRESSION COLLAPSE OR MALALIGNMENT. 2. MILD MULTILEVEL DEGENERATIVE DISC DISEASE. ADDITIONAL FACET ARTHROPATHY MID TO LOWER LUMBAR SPINE. 3. ALONG WITH THE DIFFUSE DISC BULGE, THERE MAY BE A SUPERIMPOSED RIGHT PARACENTRAL HERNIATION AT L4- L5 THAT COULD POTENTIALLY AFFECT THE TRAVERSING RIGHT L5 NERVE ROOT. CORRELATE FOR ANY RADICULAR SYMP TOMS. MILD RIGHT-SIDED NEUROFORAMINAL STENOSIS AT THIS LEVEL.
[2018-11-21 11:23] VITALS: BP 121/55; PULSE 83; RESP 18
== END 2018-11-21 11:23 | disposition home or self-care (01) ==
LOC: EC 08:54
DX: M51.16 Intervertebral disc disorders with radiculopathy, lumbar region (principal); M19.90 Unspecified osteoarthritis, unspecified site; F17.200 Nicotine dependence, unspecified, uncomplicated; Z79.82 Long term (current) use of aspirin; Z79.890 Hormone replacement therapy; Z91.040 Latex allergy status; Z91.041 Radiographic dye allergy status
CPT/HCPCS: 72131; 99285; 96374; 96375 ×3; J1100; J3360; J1885; J1170

== ENCOUNTER → 2018-11-24 | Outpatient (CLI) | payer MEDICARE, OTHER ==
--- NOTE | 2018-11-24 15:30 | XR ---
EXAMINATION TYPE: XR chest 2V DATE OF EXAM: 11/24/2018 COMPARISON: 06/19/2015 INDICATION: Yearly physical TECHNIQUE: Frontal and lateral views of the chest are obtained. FINDINGS: The heart size is normal. The pulmonary vasculature is normal. The lungs are clear. IMPRESSION: 1. No acute pulmonary process.
[2018-11-24 16:00] LABS: HCT 38.2 % (34.0-46.0); HGB 12.4 gm/dL (11.4-16.0); MCHC 32.5 g/dL (31.0-37.0); MCV 92.4 fL (80.0-100.0); Mean Platelet Volume 8.3; Platelet Count 272 k/uL (150-450); RBC 4.13 m/uL (3.80-5.40); RDW 13.7 % (11.5-15.5); WBC 9.7 k/uL (3.8-10.6)
[2018-11-25 01:06] LABS: Albumin/Globulin Ratio 1.74 (1.60-3.17); Anion Gap 9.4 mmol/L (4.00-12.00); Calcium 8.9 mg/dL (8.7-10.3); Carbon Dioxide 25.6 mmol/L (21.6-31.8); Globulin 2.3 g/dL (1.6-3.3); LDL Cholesterol,Calculated 146.4 mg/dL (0.0-131.0); Potassium 3.8 mmol/L (3.5-5.5); Total Bilirubin 0.3 mg/dL (0.2-1.2); Total Protein 6.3 g/dL (6.2-8.2); VLDL Calculation 23.6 mg/dL (5.00-40.00)
[2018-11-25 01:14] LABS: T4, Free (Free Thyroxine) 0.9 ng/dL (0.80-1.80)
== END | disposition home or self-care (01) ==
LOC: LABWHC1 15:03
PROVIDERS: ATTEND Internal Medicine
DX: Z00.00 Encounter for general adult medical examination without abnormal findings (principal); E78.2 Mixed hyperlipidemia; I11.9 Hypertensive heart disease without heart failure; K21.0 Gastro-esophageal reflux disease with esophagitis; R06.02 Shortness of breath
CPT/HCPCS: 36415; 71046; 80053; 80061; 82272; 84439; 84443; 85027

== ENCOUNTER → 2018-11-25 | Outpatient (CLI) | payer MEDICARE, OTHER ==
--- NOTE | 2018-11-26 09:56 | MM ---
Reason for exam: screening (asymptomatic). Last mammogram was performed 1 year and 5 months ago. History: Patient is postmenopausal. Physical Findings: A clinical breast exam by your physician is recommended on an annual basis and results should be correlated with mammographic findings. MG 3D Screening Mammo W/Cad Bilateral CC and MLO view(s) were taken. Prior study comparison: June 30, 2017, bilateral MG 3d screening mammo w/cad. November 01, 2015, bilateral MG 3d screening mammo w/cad. The breast tissue is heterogeneously dense. This may lower the sensitivity of mammography. No suspicious abnormality. No significant changes when compared with prior studies. ASSESSMENT: Negative, BI-RAD 1 RECOMMENDATION: Routine screening mammogram of both breasts in 1 year.
== END ==
LOC: RADMAMWWP 07:59
PROVIDERS: ATTEND Internal Medicine
DX: Z12.31 Encounter for screening mammogram for malignant neoplasm of breast (principal)
CPT/HCPCS: 77063; 77067

== ENCOUNTER 2019-01-05 07:53 | Day surgery (SDC) | payer MEDICARE, OTHER ==
[2019-01-04 10:18] VITALS: BMI 28.1
[2019-01-05 08:30] VITALS: RESP 16; TEMP 99
[2019-01-05] MEDS ORDERED: LACTATED RINGERS 1,000 ML IV ONE (08:37)
[2019-01-05] MEDS ORDERED: LIDOCAINE 1% 20 ML VIAL (10MG/ML) FOR IV START INTRADERMA ONE (08:38)
[2019-01-05] MEDS ORDERED: MIDAZOLAM 2 MG/2 ML VIAL IV ONE (08:43)
[2019-01-05] MEDS ORDERED: PROPOFOL 10 MG/ML 20 ML VIAL IV ONE (08:57)
--- NOTE | 2019-01-05 09:07 | P.PCN ---
Date of Procedure: 01/05/19 Procedure(s) Performed: BRIEF HISTORY: Patient is a 68-year-old pleasant white female scheduled for an elective colonoscopy as a part of value should of Hemoccult-positive stool. She also has history of colon polyps. As coloscopy was 5 years ago PROCEDURE PERFORMED: Colonoscopy. PREOPERATIVE DIAGNOSIS: Blood in the stool and history of colon polyps. IV sedation per Anesthesia. PROCEDURE: After informed consent was obtained, the patient, was brought into the endoscopy unit. IV sedation was administered by Anesthesia under continuous monitoring. Digital rectal examination was normal. Initially the Olympus CF-160 flexible video colonoscope was then inserted in the rectum, gradually advanced i nto the cecum without any difficulty. Careful examination was performed as the scope was gradually being withdrawn. Ileocecal valve and the appendiceal orifice were visualized and appeared normal. Prep was excellent. Mucosa of the cecum, ascending colon, transverse colon, descending colon, sigmoid colon, and rectum appeared normal. Retroflexion was performed in the rectum and no lesions were seen. The patient tolerated the procedure well. IMPRESSION: Normal-appearing colon from rectum to cecum with no evidence of colorectal neoplasia . RECOMMENDATIONS: Findings of this examination were discussed with the patient as well as a family. She was advised to have a repeat surveillance colonoscopy in 5 years from now because of the prior history of colon polyps.
[2019-01-05 09:27] VITALS: BP 116/58; PULSE 64
== END 2019-01-05 09:57 | disposition home or self-care (01) ==
LOC: ORWHC2ENDO 07:53
PROVIDERS: ATTEND Internal Medicine Gastroenterology
DX: R19.5 Other fecal abnormalities (principal); I10 Essential (primary) hypertension; E78.5 Hyperlipidemia, unspecified; F17.200 Nicotine dependence, unspecified, uncomplicated; M19.90 Unspecified osteoarthritis, unspecified site; F41.0 Panic disorder [episodic paroxysmal anxiety]; Z86.010 Personal history of colon polyps; Z87.442 Personal history of urinary calculi; Z79.899 Other long term (current) drug therapy; Z91.040 Latex allergy status; Z91.041 Radiographic dye allergy status; Z91.048 Other nonmedicinal substance allergy status
CPT/HCPCS: 45378; J2250; J2704

== ENCOUNTER → 2019-08-26 | Outpatient (CLI) | payer MEDICARE, OTHER ==
--- NOTE | 2019-08-26 12:20 | CT ---
EXAMINATION TYPE: CT lumbar spine wo con DATE OF EXAM: 08/26/2019 12:03 PM COMPARISON: CT lumbar spine dated 11/21/2018 HISTORY: Lower back pain x 4 days, no known injury CT DLP: 461.3 mGycm Automated exposure control for dose reduction was used. TECHNIQUE: Unenhanced CT of the lumbar spine was performed. Bone and soft tissue window settings are submitted as well as coronal and sagittal reconstructions. FINDINGS: Again there is diffuse thickening of the adrenal glands without focal nodule, likely adrena l gland hyperplasia. Partially visualized probable hepatic cyst. Moderate atheromatous changes of the abdominal aorta. Diffuse osseous demineralization is again noted. Vertebral body heights and alignme nt of the lumbar spine are maintained. Multilevel degenerative disease. No acute fracture of the lumb ar spine. Sacroiliac joints are symmetric. Nonspecific sclerotic focus of the sacrum is unchanged fro m the prior, possibly a bone island. L1-L2: There is a broad-based disc bulge without spinal canal stenosis or neural foraminal narrowing. L2-L3: (Both is seen resulting in mild bilateral neural foraminal narrowing without spinal canal sten osis. L3-L4: Broad-based disc bulge and facet arthropathy result in mild to moderate bilateral neural eddie inal narrowing without spinal canal stenosis. L4-L5: As noted on the prior and L4-L5 there is a right paracentral possible disc herniation superimp osed on the disc bulge. This could impress on the forming L5 nerve root. Again this was noted on the prior. There is moderate to severe right and mild to moderate left neural foraminal narrowing and mil d spinal canal stenosis. L5-S1: Broad-based disc bulge with mild bilateral neural foraminal narrowing and no spinal canal sten osis. IMPRESSION: 1. No acute fracture or malalignment of the lumbar spine. 2. As noted on the prior lumbar spine CT of 11/21/2018 is a possible right paracentral disc herniation at L4-5 that may impress upon the forming L5 nerve root on the right. Mild spinal canal stenosis and neuroforaminal narrowing are seen as detailed above. 3. Degenerative disc disease of the lumbar spine is mild to moderate overall.
--- NOTE | 2019-08-26 12:34 | XR ---
EXAMINATION TYPE: XR chest 2V DATE OF EXAM: 08/26/2019 COMPARISON: 11/24/2018 HISTORY: Chest pain TECHNIQUE: Frontal and lateral views of the chest are obtained. FINDINGS: There is no focal air space opacity, pleural effusion, or pneumothorax seen. The cardiac silhouette size is within normal limits. The osseous structures are intact. IMPRESSION: No acute cardiopulmonary process.
== END | disposition home or self-care (01) ==
LOC: RADCTMAIN 11:40
PROVIDERS: ATTEND Family Medicine
DX: M48.061 Spinal stenosis, lumbar region without neurogenic claudication (principal); M48.07 Spinal stenosis, lumbosacral region; M51.36 Other intervertebral disc degeneration, lumbar region; R07.9 Chest pain, unspecified
CPT/HCPCS: 71046; 72131

== ENCOUNTER → 2019-11-10 | Outpatient (CLI) | payer MEDICARE, OTHER ==
--- NOTE | 2019-11-10 16:35 | CT ---
EXAMINATION TYPE: CT neck chest without con DATE OF EXAM: 11/10/2019 COMPARISON: None HISTORY: Parasthesia of skin, numbness RT arm. CT DLP: 1106 mGycm CONTRAST: None TECHNIQUE: Axial images at 3 mm thick sections. Reconstructed images in the coronal plane and sagitt al plane are reviewed. FINDINGS: Limited CT sections are obtained the lung apices. The lung apices appear clear. CT neck: The torus tubarius and fossa of Rosenmuller are normal. Squeegee Tender spaces are normal. Para nasal sinuses and mastoid air cells are clear. Parotid glands appear normal and symmetrical. Submandibular glands, are normal. Parapharyngeal spac es are normal. No suspicious adenopathy is evident. The hypopharynx appears within normal limits. Vocal cord level appear symmetrical. Thyroid as visualized is normal. C5-6 foraminal stenosis is present bilaterally due to uncovertebral joint hypertrophy. No spinal albert l stenosis is present. Remaining foramen are patent. IMPRESSIONS: 1. Degenerative disc changes and foraminal stenosis C5-6. Correlate with radicular symptoms. EXAMINATION TYPE: CT neck chest without con DATE OF EXAM: 11/10/2019 COMPARISON: None HISTORY: Parasthesia of skin, numbness RT arm. CT DLP: 1106 mGycm, Automated exposure control for dose reduction was used. CONTRAST: Performed injected with 0 mL of Isovue 300. TECHNIQUE: Axial images were obtained at 5 mm thick sections. Reconstructed images are reviewed on [facility] computer in the coronal plane. FINDINGS: Portion of the thyroid visualized is normal. No suspicious lung nodules or focal infiltrates are present. No enlarged mediastinal or hilar adenopathy is evident. The ascending aorta diameter at the level o f the main pulmonary artery is 3.8 cm. The main pulmonary artery diameter at the bifurcation is 2.[address] sections are obtained through the upper abdomen. There is a 1.3 similar hypodensities in t anterior right lobe liver measuring 5 Hounsfield units. IMPRESSIONS: 1. Normal Chest CT.
== END | disposition home or self-care (01) ==
LOC: RADCTMAIN 15:05
PROVIDERS: ATTEND Family Medicine
DX: R20.2 Paresthesia of skin (principal)
CPT/HCPCS: 70490; 71250

== ENCOUNTER → 2019-11-16 | Outpatient (CLI) | payer MEDICARE, OTHER ==
--- NOTE | 2019-11-16 12:34 | NM ---
EXAMINATION TYPE: NM thyroid image only DATE OF EXAM: 11/16/2019 COMPARISON: NONE HISTORY: Hyperthyroid TECHNIQUE: After the intravenous administration of 10.7 mCi Tc 99m Sodium Pertechnetate imaging is pe rformed over the thyroid. FINDINGS: Radiotracer accumulation within the bilateral thyroid lobes appears homogenous and symmetrical. No ph otopenic defects or focal hot nodules are evident. Uptake appears appropriate in relation to the sali vary glands. IMPRESSION: 1. Normal thyroid scan.
== END | disposition home or self-care (01) ==
LOC: RADNMMAIN 10:50
PROVIDERS: ATTEND Family Medicine
DX: E05.90 Thyrotoxicosis, unspecified without thyrotoxic crisis or storm (principal)
CPT/HCPCS: 78013; A9512

== ENCOUNTER → 2019-11-21 | Outpatient (CLI) | payer MEDICARE, OTHER ==
--- NOTE | 2019-11-21 08:59 | CT ---
EXAMINATION TYPE: CT foot RT wo con DATE OF EXAM: 11/21/2019 COMPARISON: None. HISTORY: Rt Foot pain, primary osteoarthritis, enlarged and hypertrophic nails, and pain to 2 interna l orthopedic prosthetic devices. Patient had first toe metatarsophalangeal arthrodesis July 19. CT DLP: 151.4 mGycm Automated exposure control for dose reduction was used. FINDINGS: Correlating with patient history there is dorsal fixating plate with 2 distal and 3 proximal fixating screws level of the first metatarsal phalangeal joint. There is an additional obliquely oriented scr ew extending laterally and proximally through the lateral proximal metaphysis of the first proximal p halanx and terminating in the medial distal diaphysis of the first metatarsal. There does appear to b e fracture of the screw axial image 38 at the level of the metatarsal head. First metatarsophalangeal joint shows satisfactory alignment. There is moderate to severe narrowing with mild peripheral spurr ing. No bony fusion is evident. There is some spurring and subchondral cystic change with narrowing o f the sesamoid bones articulating with the plantar surface of the first metatarsal head and plantar a rticulation with the proximal phalanx. Well-corticated defect axial image 44 likely reflects bipartit e sesamoid or 2 adjacent sesamoids. There is flexion and varus positioning distal second through fourth toes. Lisfranc joints are maintai martin. Small superior calcaneal spur. Hindfoot joints are preserved. Normal sinus tarsi fat. Accessory ossicle proximal to the medial navicular bone is present. IMPRESSION: As above.
== END | disposition home or self-care (01) ==
LOC: RADCTMAIN 07:35
PROVIDERS: ATTEND Orthopaedic Surgery
DX: Z48.89 Encounter for other specified surgical aftercare (principal); M19.071 Primary osteoarthritis, right ankle and foot; I10 Essential (primary) hypertension; E78.5 Hyperlipidemia, unspecified; F17.210 Nicotine dependence, cigarettes, uncomplicated; Q84.5 Enlarged and hypertrophic nails; T84.84XA Pain due to internal orthopedic prosthetic devices, implants and grafts, initial encounter

== ENCOUNTER → 2020-04-16 | Outpatient (CLI) | payer MEDICARE, OTHER ==
--- NOTE | 2020-04-16 08:17 | CT ---
EXAMINATION TYPE: CT lumbar spine wo con DATE OF EXAM: 04/16/2020 7:35 AM COMPARISON: 08/26/2019 HISTORY: Low back pain CT DLP: 726.6 mGycm Automated exposure control for dose reduction was used. Unenhanced CT of the lumbar spine was performed. Bone and soft tissue window settings are submitted as well as coronal and sagittal reconstructions. L1-L2: Normal disc space height. No disc herniation protrusion or central stenosis. No facet joint arthropathy. No evidence for foraminal encroachment. L2-L3: Normal disc space height. No disc herniation protrusion or central stenosis. No facet joint arthropathy. No evidence for foraminal encroachment. L3-L4: Mild degenerative disc space narrowing. Mild posterior disc bulge. No disc herniation or centr al stenosis. No foraminal encroachment. Mild facet joint arthropathy. L4-L5: Degenerative disc space narrowing. Right paracentral disc protrusion resulting in right latera l recess stenosis and right foraminal encroachment. Borderline central stenosis. Facet joint arthropa thy and mild hypertrophy of the ligamentum flavum. L5-S1: Degenerative disc space narrowing. Posterior disc bulge without disc herniation. No central st enosis or lateral recess stenosis. Foramina are patent. Again noted is adrenal glandular thickening bilaterally. IMPRESSION: 1. Multilevel degenerative disc disease. 2. Right paracentral disc protrusion L4-5 resulting in right lateral recess stenosis and borderline t o mild central stenosis.
== END | disposition home or self-care (01) ==
LOC: RADCTMAIN 07:05
PROVIDERS: ATTEND Family Medicine
DX: M48.061 Spinal stenosis, lumbar region without neurogenic claudication (principal); M51.36 Other intervertebral disc degeneration, lumbar region; M51.26 Other intervertebral disc displacement, lumbar region
CPT/HCPCS: 72131

== ENCOUNTER → 2020-06-04 | Outpatient (CLI) | payer MEDICARE, OTHER ==
--- NOTE | 2020-06-06 11:08 | MM ---
Reason for exam: screening (asymptomatic). Last mammogram was performed 1 year and 6 months ago. History: Patient is postmenopausal. Physical Findings: A clinical breast exam by your physician is recommended on an annual basis and results should be correlated with mammographic findings. MG 3D Screening Mammo W/Cad Bilateral CC and MLO view(s) were taken. Prior study comparison: November 25, 2018, bilateral MG 3d screening mammo w/cad. June 30, 2017, bilateral MG 3d screening mammo w/cad. The breast tissue is heterogeneously dense. This may lower the sensitivity of mammography. Stable medial anterior left CC asymmetric density. No significant changes when compared with prior studies. ASSESSMENT: Benign, BI-RAD 2 RECOMMENDATION: Routine screening mammogram of both breasts in 1 year.
== END | disposition home or self-care (01) ==
LOC: RADMAMWWP 11:38
PROVIDERS: ATTEND Family Medicine
DX: Z12.31 Encounter for screening mammogram for malignant neoplasm of breast (principal)
CPT/HCPCS: 77063; 77067

== ENCOUNTER → 2020-10-30 | Outpatient (CLI) | payer MEDICARE, OTHER ==
[2020-10-30 23:34] LABS: African American GFR (CKD) 101.7 (60.0-200.0); Albumin 4.7 g/dL (3.80-4.90); Albumin/Globulin Ratio 1.96 (1.60-3.17); Anion Gap 8.2 mmol/L (4.00-12.00); BUN/Creat Ratio 11.43 Ratio (12.00-20.00); Calcium 9.7 mg/dL (8.7-10.3); Carbon Dioxide 26.8 mmol/L (21.6-31.8); Chol/HDL Ratio 4.66; Globulin 2.4 g/dL (1.6-3.3); LDL Cholesterol,Calculated 116.6 mg/dL (0.0-131.0); Non-African American GFR(CKD) 87.8 (60.0-200.0); Potassium 4.1 mmol/L (3.5-5.5); Total Bilirubin 0.3 mg/dL (0.3-1.2); Total Protein 7.1 g/dL (6.2-8.2); VLDL Calculation 44.4 mg/dL (5.00-40.00)
== END | disposition home or self-care (01) ==
LOC: LABWHC1 15:02
PROVIDERS: ATTEND Nurse Practitioner Adult Health
DX: I10 Essential (primary) hypertension (principal); E78.2 Mixed hyperlipidemia
CPT/HCPCS: 36415; 80053; 80061

== ENCOUNTER → 2020-12-10 | Outpatient (CLI) | payer MEDICARE, OTHER ==
--- NOTE | 2020-12-10 13:55 | XR ---
EXAMINATION TYPE: XR chest 2V DATE OF EXAM: 12/10/2020 COMPARISON: 08/26/2019 INDICATION: Short of breath x1 month, history of Covid Pneumonia TECHNIQUE: Frontal and lateral views of the chest are obtained. FINDINGS: The heart size is normal. The pulmonary vasculature is normal. The lungs are clear. IMPRESSION: 1. No acute pulmonary process.
== END | disposition home or self-care (01) ==
LOC: RADXRMAIN 13:12
PROVIDERS: ATTEND Family Medicine
DX: R06.02 Shortness of breath (principal)
CPT/HCPCS: 71046

== ENCOUNTER → 2020-12-11 | Outpatient (CLI) | payer MEDICARE, OTHER ==
[2020-12-11 16:18] LABS: African American GFR (CKD) >90 (>60 ml/min/1.73 sqM); Blood Urea Nitrogen 14 mg/dL (7-17); Non-African American GFR(CKD) >90 (>60 ml/min/1.73 sqM)
--- NOTE | 2020-12-12 06:53 | CT ---
EXAMINATION TYPE: CT chest w con DATE OF EXAM: 12/11/2020 COMPARISON: Chest x-ray from yesterday HISTORY: SOB x [address] DLP: 512 mGycm. Automated Exposure Control for Dose Reduction was Utilized. TECHNIQUE: CT scan of the thorax is performed following with IV Contrast, patient injected with 100 mL of Isovue 300. FINDINGS: LUNGS: The lungs are grossly clear, there is no concerning parenchymal mass or nodule identified. T here is no pleural effusion or pneumothorax seen. The tracheobronchial tree is patent. MEDIASTINUM: There are no greater than 1 cm hilar or mediastinal lymph nodes. No cardiomegaly or pe ricardial effusion is seen. OTHER: Occasional subcentimeter hypodense lesion throughout the liver is too small to further charact erize, there are additional nonspecific greater than 1 cm hypodense lesions in particular inferior no nspecific 1.9 cm lesion only partially imaged. These identify 2017 CT are thought to reflect thin-wal led cysts. Asymmetric thickening left adrenal gland consistent with benign lipid rich hyperplasia sta ble from 2017 CT. IMPRESSION: No significant acute or chronic pulmonary process.
== END ==
LOC: CPPFTMAIN 14:19
PROVIDERS: ATTEND Family Medicine
DX: J44.9 Chronic obstructive pulmonary disease, unspecified (principal); I25.2 Old myocardial infarction; F17.200 Nicotine dependence, unspecified, uncomplicated
CPT/HCPCS: 94726; 94729; 94060; 82565; 84520; 71260; 36415; Q9967

== ENCOUNTER 2021-03-13 11:02 | Emergency (ER) | payer MEDICARE, OTHER ==
[2021-03-13 11:13] VITALS: TEMP 97.7
[2021-03-13] MEDS ORDERED: diphenhydrAMINE 50 MG CAP PO STA (12:30)
--- NOTE | 2021-03-13 12:33 | ED ---
General Adult HPI - General Chief complaint: Recheck/Abnormal Lab/Rx Stated complaint: bee sting Time Seen by Provider: 03/13/21 12:07 Source: patient, RN notes reviewed Mode of arrival: ambulatory Limitations: no limitations - History of Present Illness Initial comments: 70-year-old female presents emergency Department with chief complaint of bee sting. Patient states she was stung less than hour prior arrival. She states that she feels a lump on her back. She has no difficulty breathing or deploy swelling she is concerned as she believes there is stinging in her back. Patient denies any other complaints. - Related Data Home Medications Medication Instructions Recorded Confirmed LORazepam [Ativan] 0.5 mg PO TID PRN 01/04/19 01/05/19 amLODIPine [Norvasc] 10 mg PO QAM 01/04/19 01/05/19 Allergies Allergy/AdvReac Type Severity Reaction Status Date / Time Iodinated Contrast Media Allergy Swelling, Verified 03/13/21 11:10 [Iodinated Contrast Media - "welts" IV Dye] Latex, Natural Rubber Allergy Rash/Hives Verified 03/13/21 11:10 Review of Systems ROS Statement: Those systems with pertinent positive or pertinent negative responses have been documented in the HPI. ROS Other: All systems not noted in ROS Statement are negative. Past Medical History Past Medical History: Hyperlipidemia, Hypertension, Osteoarthritis (OA) Additional Past Medical History / Comment(s): Kidney Stones. HX SURG for menorrhagia, fibroids History of Any Multi-Drug Resistant Organisms: None Reported Past Surgical History: Cholecystectomy, Hysterectomy, Orthopedic Surgery Additional Past Surgical History / Comment(s): ORIF left arm - 2 PLATES.,ORIF rt foot Past Anesthesia/Blood Transfusion Reactions: No Reported Reaction Past Psychological History: Anxiety, Panic Disorder Smoking Status: Never smoker Past Alcohol Use History: Occasional Past Drug Use History: None Reported - Past Family History Mother Family Medical History: Coronary Artery Disease (CAD), Myocardial Infarction ([place]) General Exam Limitations: no limitations General appearance: alert, in no apparent distress Head exam: Present: atraumatic, normocephalic, normal inspection ENT exam: Present: normal exam, normal oropharynx, mucous membranes moist Neck exam: Present: normal inspection. Absent: tenderness, meningismus, lymphadenopathy Respiratory exam: Present: normal lung sounds bilaterally. Absent: respiratory distress, wheezes, rales, rhonchi, stridor Cardiovascular Exam: Present: regular rate, normal rhythm, normal heart sounds. Absent: systolic murmur, diastolic murmur, rubs, gallop, clicks Skin exam: Present: warm, dry, intact, normal color, rash (Social erythematous papule on the bed centralized [place] no foreign body noted) Course Vital Signs 03/13/21 11:10 Temperature 97.7 F Pulse Rate 77 Respiratory 16 Rate O2 Sat by Pulse 98 Oximetry Medical Decision Making - Medical Decision Making Patient has localized bee sting with no systemic reaction. Patient discharged in stable condition. Disposition Clinical Impression: Bee sting Disposition: HOME SELF-CARE Condition: Stable Instructions (If sedation given, give patient instructions): Insect Bite or Sting (ED) Additional Instructions: Please return to the Emergency Department if symptoms worsen or any other concerns. Is patient prescribed a controlled substance at d/c from ED?: No Referrals: Ken Valdez MD [Primary Care Provider] - 1-2 days Time of Disposition: 12:33
[2021-03-13 12:46] VITALS: BP 124/57; PULSE 70; RESP 18
== END 2021-03-13 12:45 | disposition home or self-care (01) ==
LOC: EC 11:02
DX: T63.441A Toxic effect of venom of bees, accidental (unintentional), initial encounter (principal); I10 Essential (primary) hypertension; E78.5 Hyperlipidemia, unspecified; M19.90 Unspecified osteoarthritis, unspecified site; F41.0 Panic disorder [episodic paroxysmal anxiety]; Z91.040 Latex allergy status
CPT/HCPCS: 99283

== ENCOUNTER → 2021-05-24 | Outpatient (CLI) | payer MEDICARE, OTHER ==
--- NOTE | 2021-05-25 09:14 | US ---
EXAMINATION TYPE: US kidneys/renal and bladder DATE OF EXAM: 05/24/2021 COMPARISON: NONE CLINICAL HISTORY: N20.0 Calculus of kidney. right flank pain, history of kidney stones EXAM MEASUREMENTS: Right Kidney: 13.0 x 4.7 x 5.8 cm Left Kidney: 11.8 x 5.6 x 4.4 cm Right Kidney: parapelvic cyst Left Kidney: lobulation mid, probable dromedary hump. parapelvic cyst Bladder: appears wnl Bilateral Jets seen: no *incidental finding: cystic area within liver = 3.1 x 2.9 x 3.0cm There is no evidence for hydronephrosis at this point in time. No nephrolithiasis is seen. No solid masses are identified. The urinary bladder is anechoic. Bilateral ureteral jets are seen. IMPRESSION: Bilateral parapelvic cysts.
== END | disposition home or self-care (01) ==
LOC: RADUSWWP 16:10
PROVIDERS: ATTEND Family Medicine
DX: N28.1 Cyst of kidney, acquired (principal); Z87.442 Personal history of urinary calculi
CPT/HCPCS: 76770

== ENCOUNTER → 2021-06-25 | Outpatient (CLI) | payer MEDICARE, OTHER ==
--- NOTE | 2021-06-25 16:47 | CT ---
EXAMINATION TYPE: CT lumbar spine wo con DATE OF EXAM: 06/25/2021 COMPARISON: HISTORY: Radiculopathy CT DLP: 520.4 mGycm CONTRAST: CT scan of the lumbar is performed , patient injected with mL of . TECHNIQUE: CT of the lumbar spine is performed on a spiral scan at 3 mm thick sections. Reconstructed images are performed in the coronal and sagittal planes. FINDINGS: T12-L1: No focal disc herniation or significant disc bulge is evident. No spinal canal stenosis or neural foraminal stenosis is present. L1-L2: No focal disc herniation or significant disc bulge is evident. No spinal canal stenosis or n eural foraminal stenosis is present L2-L3: No focal disc herniation or significant disc bulge is evident. No spinal canal stenosis or n eural foraminal stenosis is present L3-L4: Broad-based disc bulge is present with mild anterior thecal sac flattening. No AP spinal canal stenosis present. Neural foramen are patent. L4-L5: Broad-based disc bulge has mild anterior thecal sac compression. The asymmetry in the right pa racentral region appears diminished. Mild ligamentum flavum laxity is present. No spinal canal stenos is is present. There is mild bilateral foraminal narrowing greater on the right. L5-S1: No focal disc herniation or significant disc bulge is evident. No spinal canal stenosis or n eural foraminal stenosis is present Vertebral alignment appears normal. IMPRESSION: 1. Disc bulging at L3-4 and L4-5 with mild anterior thecal sac compression.
== END | disposition home or self-care (01) ==
LOC: RADCTMAIN 08:08
PROVIDERS: ATTEND Family Medicine
DX: M51.16 Intervertebral disc disorders with radiculopathy, lumbar region (principal)
CPT/HCPCS: 72131

== ENCOUNTER → 2021-07-19 | Outpatient (CLI) | payer MEDICARE, OTHER ==
--- NOTE | 2021-07-19 13:50 | US ---
EXAMINATION TYPE: US kidneys/renal and bladder DATE OF EXAM: 07/19/2021 COMPARISON: US 05/24/2021 CLINICAL HISTORY: N20.2 renal stones. EXAM MEASUREMENTS: Right Kidney: 12.6 x 4.4 x 5.1 cm Left Kidney: 12.1 x 5.9 x 4.2 cm Liver cyst again noted Right Kidney: No hydronephrosis or masses seen, measures large Left Kidney: No hydronephrosis or masses seen, probable dromedary hump Bladder: wnl IMPRESSION: 1. 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 Follow-up for stability i s recommended.
== END | disposition home or self-care (01) ==
LOC: RADUSWWP 10:43
PROVIDERS: ATTEND Family Medicine
DX: K76.89 Other specified diseases of liver (principal)
CPT/HCPCS: 76770

== ENCOUNTER → 2021-08-28 | Outpatient (CLI) | payer MEDICARE, OTHER ==
--- NOTE | 2021-08-28 10:20 | CT ---
EXAMINATION TYPE: CT chest abdomen wo con DATE OF EXAM: 08/28/2021 COMPARISON: CT chest 12/11/2020 HISTORY: Chest pain, abdominal pain CT DLP: 406.4 mGycm Automated exposure control for dose reduction was used. TECHNIQUE: Helical acquisition obtained through the chest and abdomen without intravenous contrast FINDINGS: Lack of intravenous contrast could compromise sensitivity of the exam. Chest shows no supraclavicular, mediastinal, axillary, or hilar adenopathy. Aorta shows atheromatous change but no aneurysm. Mild coronary artery calcification is noted. No endobronchial lesion, pleural or pericardial effusion. Mild emphysematous changes are present within the lungs. No evident lung ma ss. ABDOMEN: Remarkable for multiple low dense foci within the liver which statistically are likely to re present cysts. The common bile duct is dilated likely due to postcholecystectomy change. Pancreas is within normal limits. Adrenal glands, kidneys, spleen are within normal limits. No evident bowel obst ruction. Aorta shows atheromatous change. There is no retroperitoneal adenopathy, pneumoperitoneum, o r ascites. Osseous structures show no lytic or blastic lesion. IMPRESSION: NO ABNORMALITY EVIDENT TO ACCOUNT FOR PATIENT'S SYMPTOMS. NONCONTRAST EXAM.
== END | disposition home or self-care (01) ==
LOC: RADCTMAIN 08:44
PROVIDERS: ATTEND Family Medicine
DX: R10.9 Unspecified abdominal pain (principal); R07.9 Chest pain, unspecified
CPT/HCPCS: 71250; 74150

== ENCOUNTER → 2021-09-26 | Outpatient (CLI) | payer MEDICARE, OTHER ==
--- NOTE | 2021-09-26 08:11 | P.PAINCN ---
History of Present Illness - Reason for Consult Consult date: 09/26/21 Lumbar back pain - Chief Complaint Lumbar back pain - History of Present Illness Mr. Penn is a 71 -year-old pleasant female came to the [facility] pain clinic for lumbar back pain and she'll evaluation . Patient has ongoing pain for at least 10 years. Patient denied any history of fall/injury/motor vehicle accident. Patient pain started gradually over the years. Patient was very active bending and [place] Patient describes pain is aching, throbbing, constant type of pain. Pain is radiating to right lower extremity up to mid thigh area. Never radiating to below the knee. Patient rated pain levels are 4-5 out of 10 in severity. With the help of medications pain levels are 3-4 out of 10 in severity. Activities making pain worse. Medications, resting, exercise helping in relieving patient's pain. Patient pain some days better than others. Overall activities decreased secondary to pain. Because of the pain sometimes patient is feeling lack of sleep, interest, and energy. Denied any side effects with the medications. Denied any bowel or bladder problems at this time. Patient is using not using any for walking support. Patient denies any suicidal or homicidal ideations intent or plan. Patient denies any auditory or visual hallucinations. Patient denied any red flag symptoms related to pain. Review of Systems All systems: negative Constitutional: Denies chills, Denies fever Eyes: denies blurred vision, denies pain Ears, nose, mouth and throat: Denies headache, Denies sore throat Cardiovascular: Denies chest pain, Denies shortness of breath Respiratory: Denies cough Gastrointestinal: Denies abdominal pain, Denies diarrhea, Denies nausea, Denies vomiting Genitourinary: Denies dysuria, Denies hematuria Musculoskeletal: Reports low back pain, Reports morning stiffness, Reports myalgias Integumentary: Denies pruritus, Denies rash Neurological: Denies numbness, Denies weakness Psychiatric: Denies anxiety, Denies depression Endocrine: Denies fatigue, Denies weight change Past Medical History Past Medical History: Hyperlipidemia, Hypertension, Osteoarthritis (OA) Additional Past Medical History / Comment(s): Kidney Stones. HX SURG for menorrhagia, fibroids. covid 07/2020 History of Any Multi-Drug Resistant Organisms: None Reported Past Surgical History: Cholecystectomy, Hysterectomy, Orthopedic Surgery Additional Past Surgical History / Comment(s): ORIF left arm - 2 PLATES.,ORIF rt foot,bossman cataracts Past Anesthesia/Blood Transfusion Reactions: No Reported Reaction Smoking Status: Current every day smoker - Past Family History Mother Family Medical History: Coronary Artery Disease (CAD), Myocardial Infarction ([place]) Medications and Allergies Home Medications Medication Instructions Recorded Confirmed Type LORazepam [Ativan] 0.5 mg PO TID PRN 01/04/19 09/23/21 History amLODIPine [Norvasc] 10 mg PO QAM 01/04/19 09/23/21 History Ascorbic Acid [Vitamin C] 6,400 mg PO TID 09/23/21 09/23/21 History Biotin 10,000 mcg PO DAILY 09/23/21 09/23/21 History Cholecalciferol [Vitamin D3 (125 125 mcg PO DAILY 09/23/21 09/23/21 History Mcg = 5000 Iu)] HYDROcodone/APAP 5-325MG [Mcdonald 1 tab PO Q12H PRN 09/23/21 09/23/21 History 5-325] Iron 18 mg PO DAILY 09/23/21 09/23/21 History Zinc 50 mg PO DAILY 09/23/21 09/23/21 History Allergies Allergy/AdvReac Type Severity Reaction Status Date / Time Iodinated Contrast Media Allergy Swelling, Verified 09/23/21 13:45 [Iodinated Contrast Media - "welts" IV Dye] Latex, Natural Rubber Allergy Rash/Hives Verified 09/23/21 13:45 Physical Exam General: Well-developed, well-nourished, no acute distress HEENT: Normocephalic, and atraumatic Neck: Supple, no neck swelling Psychiatric: Appropriate mood, and affect PERSONAL BANKING REPRESENTATIVE: No focal neurological deficits Musculoskeletal: Upper extremity: Normal strength, and range of motion. Sensation grossly intact Lower extremity: Normal strength, and range of motion. Sensation grossly intact. Lumbar spine: Paravertebral tenderness: positive Lumbar facet load test : positive Sacroiliac joint tenderness: Negative SI joint compression test: Negative SLR test : negative Results Comments: Computed tomography scan of the lumbar spine done on 06/25/2021 showed Disc bulging at L3-L4, and L4-L5 with mild anterior thecal sac compression. No spinal canal stenosis. No foraminal stenosis. Assessment and Plan Assessment: #1 lumbar spondylosis without myelopathy #2 lumbar disc bulge at L3-L4, and L4-L5 mild anterior thecal sac compression #3 myofascial pain syndrome #4 osteoarthritis #5 hypertension #6 history of kidney stones Plan: #1 Diagnoses, prognosis, and multiple treatment options including but not limited to physical therapy, interventional therapy, adjunct medication therapy, narcotic medication, and surgical options were discussed with the patient. And all questions were answered to the patient's satisfaction. #2 treatment plan agreement : Patient was thoroughly discussed regarding the treatment options, alternatives, and importance of exercises as tolerated. Patient clearly understood. #3 Patient was counseled on importance of regular exercise. Including chase chi, aerobic exercises as tolerated. Which helps for chronic pain, and overall well- being. Patient also counseled regarding importance of weight control rolling chronic pain, and overall other health issues. By altering diet habits, minimizing sugar intake, and processed foods helps in minimizing Inflammation. #4 investigations: MAPS- reviewed , urine drug test- not done #5 diagnostic tests: None #6 consultation : Physical therapy for 6 weeks duration 3 times per week # 7 interventional procedures: Discussed with the patient regarding L4-L5 epidural steroid injection . Procedure, complications, alternatives discussed with the patient. #8 medications #1 magnesium oxide 400 mg by mouth daily dispense 30 with 10 refills Medication side effects, complications, long-term consequences discussed with the patient. Patient recommended to contact the pain clinic if noticed any issues with given medications. #9 morphine milligrams equivalents dose ( MME) per day: 0 from the pain clinic. # 10 TENS unit's, and percussion massage device #11 disposition: scheduled to follow up with pain clinic in 8 weeks duration. Time with Patient: Less than 30 PQRS Measure Charge Sheet PQRS Narrative: Smoking Status Current every day smoker Pain Intensity [Lower Back] 7 Scale Used Numeric (1 - 10) Home Medications: Ambulatory Orders LORazepam [Ativan] 0.5 mg PO TID PRN 01/04/19 amLODIPine [Norvasc] 10 mg PO QAM 01/04/19 Ascorbic Acid [Vitamin C] 6,400 mg PO TID 09/23/21 Biotin 10,000 mcg PO DAILY 09/23/21 Cholecalciferol [Vitamin D3 (125 Mcg = 5000 Iu)] 125 mcg PO DAILY 09/23/21 HYDROcodone/APAP 5-325MG [Mcdonald 5-325] 1 tab PO Q12H PRN 09/23/21 Iron 18 mg PO DAILY 09/23/21 Zinc 50 mg PO DAILY 09/23/21
[2021-09-26 08:16] VITALS: BP 149/75; PULSE 88; RESP 18; TEMP 97.9
== END ==
LOC: PNWHC3 07:19
DX: M47.816 Spondylosis without myelopathy or radiculopathy, lumbar region (principal); M51.36 Other intervertebral disc degeneration, lumbar region; M79.18 Myalgia, other site; M19.90 Unspecified osteoarthritis, unspecified site; I10 Essential (primary) hypertension; E78.5 Hyperlipidemia, unspecified; Z87.442 Personal history of urinary calculi; Z79.899 Other long term (current) drug therapy; Z91.041 Radiographic dye allergy status; Z91.040 Latex allergy status; F17.200 Nicotine dependence, unspecified, uncomplicated
CPT/HCPCS: 99211

== ENCOUNTER 2021-12-25 21:49 | Emergency (ER) | payer MEDICARE, OTHER ==
[2021-12-26] MEDS ORDERED: SODIUM CHLORIDE 0.9% 1,000 ML IV STA (02:33)
--- NOTE | 2021-12-26 03:05 | ED ---
Headache HPI - General Chief Complaint: Headache Stated Complaint: HEAD PAIN,PCP SENT Time Seen by Provider: 12/26/21 02:33 Source: RN notes reviewed, old records reviewed Mode of arrival: ambulatory Limitations: no limitations - History of Present Illness Initial Comments: This is a 71-year-old female to the ER for evaluation. Patient presents emergen cy department for evaluation of severe headache. Patient presents by primary care for evaluation regards his headache. Patient has no significant history of traumatic no recent trauma no fevers. No other complaints. Patient's headache is improved at home medication. Patient has no travel history no sick contacts no change in medications. Like is a throbbing headache on the right side of her head which is started today Complaint: headache -: hour(s) Onset Description: gradual Location: right, frontal Severity: moderate Severity scale (1-10): 3 Quality: throbbing Consistency: constant Improves With: nothing Worsens With: none Context: occurred at rest Associated Symptoms: nausea Other Symptoms: other (none) Treatments Prior to Arrival: none - Related Data On Hormonal Control: No Home Medications Medication Instructions Recorded Confirmed Blood Pressure Med Unknown 1 tab PO DAILY 01/23/22 01/23/22 Cyclobenzaprine [Flexeril] 5 mg PO Q12H 01/23/22 01/23/22 HYDROcodone/APAP 10-325MG [Loiza 1 tab PO Q12H PRN 01/23/22 01/23/22 10-325] Rosuvastatin [Crestor] 10 mg PO DAILY 01/23/22 01/23/22 Previous Rx's Medication Instructions Recorded Cyclobenzaprine [Flexeril] 10 mg PO TID PRN #15 tab 01/23/22 Lidocaine 5% Patch [Lidoderm 5% 1 patch TOPICAL DAILY PRN #5 patch 01/23/22 Patch] Allergies Allergy/AdvReac Type Severity Reaction Status Date / Time Iodinated Contrast Media Allergy Swelling, Verified 01/23/22 15:14 [Iodinated Contrast Media - "welts" IV Dye] Latex, Natural Rubber Allergy Rash/Hives Verified 01/23/22 15:14 Review of Systems ROS Statement: Those systems with pertinent positive or pertinent negative responses have been documented in the HPI. ROS Other: All systems not noted in ROS Statement are negative. Past Medical History Past Medical History: Hyperlipidemia, Hypertension, Osteoarthritis (OA) Additional Past Medical History / Comment(s): Kidney Stones. HX SURG for menorrhagia, fibroids. covid 07/2020 History of Any Multi-Drug Resistant Organisms: None Reported Past Surgical History: Cholecystectomy, Hysterectomy, Orthopedic Surgery Additional Past Surgical History / Comment(s): ORIF left arm - 2 PLATES.,ORIF rt foot,bossman cataracts Past Anesthesia/Blood Transfusion Reactions: No Reported Reaction Past Psychological History: Anxiety, Panic Disorder Smoking Status: Current every day smoker Past Alcohol Use History: None Reported Past Drug Use History: None Reported - Past Family History Mother Family Medical History: Coronary Artery Disease (CAD), Myocardial Infarction ([place]) General Exam Limitations: no limitations General appearance: alert, in no apparent distress, anxious Head exam: Present: atraumatic, normocephalic, normal inspection Eye exam: Present: normal appearance, PERRL, EOMI. Absent: scleral icterus, conjunctival injection, periorbital swelling ENT exam: Present: normal exam, mucous membranes moist Neck exam: Present: normal inspection. Absent: tenderness, meningismus, lymphadenopathy Respiratory exam: Present: normal lung sounds bilaterally. Absent: respiratory distress, wheezes, rales, rhonchi, stridor Cardiovascular Exam: Present: normal rhythm, tachycardia, normal heart sounds. Absent: systolic murmur, diastolic murmur, rubs, gallop, clicks GI/Abdominal exam: Present: soft, normal bowel sounds. Absent: distended, tenderness, guarding, rebound, rigid Extremities exam: Present: normal inspection, full ROM, normal capillary refill. Absent: tenderness, pedal edema, joint swelling, calf tenderness Back exam: Present: normal inspection Neurological exam: Present: alert, oriented X3, CN II-XII intact Psychiatric exam: Present: normal affect, normal mood Skin exam: Present: warm, dry, intact, normal color. Absent: rash Course Vital Signs 12/25/21 12/26/21 12/26/21 22:20 04:49 06:55 Temperature 97.9 F 97.6 F Pulse Rate 112 H 62 70 Respiratory 20 18 16 Rate Blood Pressure 158/83 145/77 139/67 O2 Sat by Pulse 97 98 98 Oximetry 12/26/21 07:02 Temperature Pulse Rate 78 Respiratory 18 Rate Blood Pressure 141/78 O2 Sat by Pulse 99 Oximetry - Reevaluation(s) Reevaluation #1: 12/26/21 Medical record is reviewed Patient symptoms are improving here in the emergency department Patient is informed of results and questions have been answered Medical Decision Making - Medical Decision Making 71 female for ER with nonspecific headache. Headache is resolved here in the ER patient feels improved and can be discharged home - Lab Data Result diagrams: 12/26/21 03:42 12/26/21 03:42 Lab Results 12/26/21 12/26/21 12/26/21 Range/Units 03:42 03:42 03:42 WBC 8.3 (3.8-10.6) k/uL RBC 4.57 (3.80-5.40) m/uL Hgb 13.6 (11.4-16.0) gm/dL Hct 42.0 (34.0-46.0) % MCV 91.8 (80.0-100.0) fL MCH 29.8 (25.0-35.0) pg MCHC 32.5 (31.0-37.0) g/dL RDW 13.5 (11.5-15.5) % Plt Count 159 (150-450) k/uL MPV 11.4 Neutrophils % 60 % Lymphocytes % 28 % Monocytes % 6 % Eosinophils % 3 % Basophils % 1 % Neutrophils # 5.0 (1.3-7.7) k/uL Lymphocytes # 2.3 (1.0-4.8) k/uL Monocytes # 0.5 (0-1.0) k/uL Eosinophils # 0.3 (0-0.7) k/uL Basophils # 0.1 (0-0.2) k/uL ESR 17 (0-20) mm/hr PT 10.4 (9.0-12.0) sec INR 1.0 (<1.2) APTT 24.2 (22.0-30.0) sec Sodium 141 (137-145) mmol/L Potassium 3.7 (3.5-5.1) mmol/L Chloride 109 H (98-107) mmol/L Carbon Dioxide 24 (22-30) mmol/L Anion Gap 8 mmol/L BUN 12 (7-17) mg/dL Creatinine 0.55 (0.52-1.04) mg/dL Est GFR (CKD-EPI)AfAm >90 (>60 ml/min/1.73 sqM) Est GFR (CKD-EPI)NonAf >90 (>60 ml/min/1.73 sqM) Glucose 90 (74-99) mg/dL Plasma Lactic Acid Cory (0.7-2.0) mmol/L Calcium 8.9 (8.4-10.2) mg/dL Total Bilirubin 0.5 (0.2-1.3) mg/dL AST 22 (14-36) U/L ALT 17 (4-34) U/L Alkaline Phosphatase 75 (38-126) U/L Troponin I (0.000-0.034) ng/mL C-Reactive Protein <0.5 (<1.0) mg/dL Total Protein 7.0 (6.3-8.2) g/dL Albumin 4.0 (3.5-5.0) g/dL Urine Color Urine Appearance (Clear) Urine pH (5.0-8.0) Ur Specific [place] (1.001-1.035) Urine Protein (Negative) Urine Glucose (UA) (Negative) Urine Ketones (Negative) Urine Blood (Negative) Urine Nitrite (Negative) Urine Bilirubin (Negative) Urine Urobilinogen (<2.0) mg/dL Ur Leukocyte Esterase (Negative) Urine RBC (0-5) /hpf Urine WBC (0-5) /hpf Ur Squamous Epith Cells (0-4) /hpf Urine Bacteria (None) /hpf 12/26/21 12/26/21 12/26/21 Range/Units 03:42 03:42 04:49 WBC (3.8-10.6) k/uL RBC (3.80-5.40) m/uL Hgb (11.4-16.0) gm/dL Hct (34.0-46.0) % MCV (80.0-100.0) fL MCH (25.0-35.0) pg MCHC (31.0-37.0) g/dL RDW (11.5-15.5) % Plt Count (150-450) k/uL MPV Neutrophils % % Lymphocytes % % Monocytes % % Eosinophils % % Basophils % % Neutrophils # (1.3-7.7) k/uL Lymphocytes # (1.0-4.8) k/uL Monocytes # (0-1.0) k/uL Eosinophils # (0-0.7) k/uL Basophils # (0-0.2) k/uL ESR (0-20) mm/hr PT (9.0-12.0) sec INR (<1.2) APTT (22.0-30.0) sec Sodium (137-145) mmol/L Potassium (3.5-5.1) mmol/L Chloride (98-107) mmol/L Carbon Dioxide (22-30) mmol/L Anion Gap mmol/L BUN (7-17) mg/dL Creatinine (0.52-1.04) mg/dL Est GFR (CKD-EPI)AfAm (>60 ml/min/1.73 sqM) Est GFR (CKD-EPI)NonAf (>60 ml/min/1.73 sqM) Glucose (74-99) mg/dL Plasma Lactic Acid Cory 1.2 (0.7-2.0) mmol/L Calcium (8.4-10.2) mg/dL Total Bilirubin (0.2-1.3) mg/dL AST (14-36) U/L ALT (4-34) U/L Alkaline Phosphatase (38-126) U/L Troponin I <0.012 (0.000-0.034) ng/mL C-Reactive Protein (<1.0) mg/dL Total Protein (6.3-8.2) g/dL Albumin (3.5-5.0) g/dL Urine Color Colorless Urine Appearance Clear (Clear) Urine pH 7.0 (5.0-8.0) Ur Specific [place] 1.003 (1.001-1.035) Urine Protein Negative (Negative) Urine Glucose (UA) Negative (Negative) Urine Ketones Negative (Negative) Urine Blood Small H (Negative) Urine Nitrite Negative (Negative) Urine Bilirubin Negative (Negative) Urine Urobilinogen <2.0 (<2.0) mg/dL Ur Leukocyte Esterase Negative (Negative) Urine RBC 3 (0-5) /hpf Urine WBC 1 (0-5) /hpf Ur Squamous Epith Cells <1 (0-4) /hpf Urine Bacteria Rare H (None) /hpf - Radiology Data Radiology results: report reviewed (CT brain negative for acute disease), image reviewed Disposition Clinical Impression: Headache, Cervico-occipital neuralgia Disposition: HOME SELF-CARE Condition: Good Instructions (If sedation given, give patient instructions): Acute Headache (ED) Is patient prescribed a controlled substance at d/c from ED?: No Referrals: Ken Valdez MD [Primary Care Provider] - 1-2 days
[2021-12-26 04:01] LABS: Basophils # (A) 0.1 k/uL (0-0.2); Basophils % (A) 1 %; Eosinophils # (A) 0.3 k/uL (0-0.7); Eosinophils % (A) 3 %; HGB 13.6 gm/dL (11.4-16.0); Lymphocytes # (A) 2.3 k/uL (1.0-4.8); Lymphocytes % (A) 28 %; MCH 29.8 pg (25.0-35.0); MCHC 32.5 g/dL (31.0-37.0); MCV 91.8 fL (80.0-100.0); Mean Platelet Volume 11.4; Monocytes # (A) 0.5 k/uL (0-1.0); Monocytes % (A) 6 %; Neutrophils % (A) 60 %; Platelet Count 159 k/uL (150-450); RBC 4.57 m/uL (3.80-5.40); RDW 13.5 % (11.5-15.5); WBC 8.3 k/uL (3.8-10.6)
[2021-12-26 04:18] LABS: ALT 17 U/L (4-34); AST 22 U/L (14-36); African American GFR (CKD) >90 (>60 ml/min/1.73 sqM); Alkaline Phosphatase 75 U/L (38-126); Anion Gap 8 mmol/L; Blood Urea Nitrogen 12 mg/dL (7-17); C Reactive Protein <0.5 mg/dL (<1.0); Calcium 8.9 mg/dL (8.4-10.2); Carbon Dioxide 24 mmol/L (22-30); Chloride 109 mmol/L (98-107); Glucose 90 mg/dL (74-99); Non-African American GFR(CKD) >90 (>60 ml/min/1.73 sqM); Potassium 3.7 mmol/L (3.5-5.1); Sodium 141 mmol/L (137-145); Total Bilirubin 0.5 mg/dL (0.2-1.3)
[2021-12-26 04:19] LABS: Partial Thromboplastin Time 24.2 sec (22.0-30.0); Prothrombin Time 10.4 sec (9.0-12.0)
[2021-12-26] MEDS ORDERED: MORPHINE SULFATE 4 MG/ML SYRINGE IVP STA (04:34)
--- NOTE | 2021-12-26 05:16 | CT ---
EXAMINATION TYPE: CT brain wo con DATE OF EXAM: 12/26/2021 COMPARISON: None HISTORY: HEADACHE CT DLP: 1090.4 mGycm Automated exposure control for dose reduction was used. Ventricles have normal size. There is no mass effect or midline shift. There is no sign of intracrani al hemorrhage. Calvarium is intact. There is normal aeration of the mastoid sinuses. There is no evid ence of cerebral edema. IMPRESSION: Negative unenhanced head CT scan.
[2021-12-26 05:38] LABS: Appearance,Urine Clear (Clear); Bacteria,Urine Rare /hpf; Bilirubin,Urine Negative (Negative); Blood,Urine Small (Negative); Color,Urine Colorless; Glucose,Urine (UA) Negative (Negative); Ketones,Urine Negative (Negative); Leukocyte Esterase,Urine Negative (Negative); Nitrite,Urine Negative (Negative); Protein,Urine Negative (Negative); RBC,Urine 3 /hpf (0-5); Specific Gravity,Urine 1.003 (1.001-1.035); Squamous Epithelial Cell,Urine <1 /hpf (0-4); Urobilinogen,Urine <2.0 mg/dL (<2.0); WBC,Urine 1 /hpf (0-5)
[2021-12-26] MEDS ORDERED: KETOROLAC 15 MG/ML 1 ML VIAL IVP STA (05:41)
[2021-12-26] MEDS ORDERED: diphenhydrAMINE 50 MG/ML 1 ML VIAL IVP STA (05:41)
[2021-12-26] MEDS ORDERED: GABAPENTIN 300 MG CAP PO STA (05:41)
[2021-12-26] MEDS ORDERED: ONDANSETRON 4 MG ODT STARTER PACK 2 TAB BTL PO STA (05:53)
[2021-12-26] MEDS ORDERED: traMADol 50 MG STARTER PACK 3 TAB BTL PO STA (05:53)
[2021-12-26] MEDS ORDERED: IBUPROFEN 600 MG STARTER PACK 4 TAB BTL PO STA (05:53)
[2021-12-26] MEDS ORDERED: ACET/COD 300 MG/30 MG STARTER PACK 6 TAB BTL PO STA (05:53)
[2021-12-26 06:56] VITALS: TEMP 97.6
[2021-12-26 07:04] VITALS: BP 141/78; PULSE 78; RESP 18
[2021-12-26 07:19] LABS: Erythrocyte Sedimentation Rate 17 mm/hr (0-20)
== END 2021-12-26 07:04 | disposition home or self-care (01) ==
LOC: EC 21:49
DX: M54.81 Occipital neuralgia (principal); I10 Essential (primary) hypertension; E78.5 Hyperlipidemia, unspecified; M19.90 Unspecified osteoarthritis, unspecified site; F17.200 Nicotine dependence, unspecified, uncomplicated; Z79.899 Other long term (current) drug therapy
CPT/HCPCS: 36415; 93005; 80053; 85652; 83605; 84484; 85025; 85610; 85730; 86140; 81001; 70450; 99284; 96374; 96375 ×2; J2270; J1200; J1885; S0119

== ENCOUNTER → 2022-01-01 | Outpatient (CLI) | payer MEDICARE, OTHER ==
--- NOTE | 2022-01-01 22:55 | CT ---
EXAMINATION TYPE: CT cervical spine wo con DATE OF EXAM: 01/01/2022 COMPARISON: CT dated 11/10/2019 HISTORY: Cervical neuritis CT DLP: 440.1 mGycm Automated exposure control for dose reduction was used. TECHNIQUE: CT scan of the cervical spine is obtained without contrast, axial images are obtained, sa gittal and coronal reformatted images are also reviewed. FINDINGS: Diffuse osteopenia. Mild anterolisthesis of C4 over C5, likely degenerative. No definite vertebral elizabeth dy collapse or acute displaced fracture. No facet dislocation or significant subluxation. Degenerative changes of the cervical spine with multilevel opposing endplate osteophytosis, degenerat ed discs and uncovertebral arthropathy, most evident at C5-6 and C6-7 levels. Multilevel facet osteoa rthropathy is also noted most evident at left C4-5 facet. At C2-3 level: No significant central spinal canal stenosis or neuroforaminal stenosis. At C3-4 level: No significant central spinal canal stenosis or neuroforaminal stenosis. At C4-5 level: Posterior disc osteophyte complex with left facet osteoarthropathy, causing no signifi cant central spinal canal stenosis or neuroforaminal stenosis. At C5-6 level: Large posterior disc osteophyte complex, associated with ligamentum flavum hypertrophy more on the left side, causing mild central spinal canal stenosis, severe right and moderate left ne uroforaminal stenosis. At C6-7 level: Posterior disc osteophyte complex, causing no significant bony central spinal canal st enosis or bony neuroforaminal stenosis. Scattered arterial atherosclerotic atherosclerotic calcification. Slightly prominent thyroid gland. M inimal right apical pulmonary paraseptal emphysematous changes. IMPRESSION: Degenerative changes of the cervical spine with multilevel DDD most evident at C5-6 level as detailed above, please correlate clinically. Further MRI assessment can be considered if clinically required.
== END | disposition home or self-care (01) ==
LOC: RADCTMAIN 17:30
PROVIDERS: ATTEND Family Medicine
DX: M47.22 Other spondylosis with radiculopathy, cervical region (principal); M50.122 Cervical disc disorder at C5-C6 level with radiculopathy
CPT/HCPCS: 72125

== ENCOUNTER 2022-01-23 13:43 | Emergency (ER) | payer MEDICARE, OTHER ==
[2022-01-23 14:01] VITALS: RESP 18; TEMP 98.2
[2022-01-23] MEDS ORDERED: MORPHINE SULFATE 4 MG/ML SYRINGE IVP STA (14:27)
[2022-01-23] MEDS ORDERED: SODIUM CHLORIDE 0.9% 1,000 ML IV STA (14:27)
--- NOTE | 2022-01-23 14:55 | CT ---
EXAMINATION TYPE: CT abdomen pelvis wo con DATE OF EXAM: 01/23/2022 COMPARISON: 08/28/2021 HISTORY: Right flank pain and hematuria. CT DLP: 626.5 mGycm Examination of the solid and hollow viscera is limited given the lack of contrast. FINDINGS: LUNG BASES: No evidence for nodule. No evidence for infiltrate. LIVER/GB: The gallbladder is unremarkable. Renal cystic changes redemonstrated. PANCREAS: No pancreatic mass identified. No inflammatory process seen. SPLEEN: No evidence for splenomegaly. No intrasplenic lesions seen. ADRENALS: No adrenal nodules identified. No evidence for thickening. KIDNEYS: No evidence for renal mass. No nephrolithiasis. No hydronephrosis. BOWEL: Appendix has a normal appearance. No evidence of bowel obstruction. No inflammatory process. Lymph nodes: No evidence for adenopathy greater than 1 cm. Abdominal aorta: Atheromatous changes seen. No evidence for aneurysm. Genital organs: No significant abnormality. Other: No significant abnormality. IMPRESSION: 1. No evidence for hydronephrosis or nephrolithiasis at this time.
[2022-01-23 15:17] LABS: Basophils % (A) 1 %; Eosinophils # (A) 0.2 k/uL (0-0.7); Eosinophils % (A) 2 %; HCT 39.8 % (34.0-46.0); HGB 13.4 gm/dL (11.4-16.0); Lymphocytes # (A) 2.3 k/uL (1.0-4.8); Lymphocytes % (A) 24 %; MCH 31.5 pg (25.0-35.0); MCHC 33.7 g/dL (31.0-37.0); MCV 93.3 fL (80.0-100.0); Mean Platelet Volume 11.8; Monocytes # (A) 0.5 k/uL (0-1.0); Monocytes % (A) 5 %; Neutrophils # (A) 6.2 k/uL (1.3-7.7); Neutrophils % (A) 66 %; Platelet Count 157 k/uL (150-450); RBC 4.27 m/uL (3.80-5.40); RDW 14.3 % (11.5-15.5); WBC 9.3 k/uL (3.8-10.6)
[2022-01-23 15:33] LABS: ALT 21 U/L (4-34); AST 24 U/L (14-36); African American GFR (CKD) >90 (>60 ml/min/1.73 sqM); Albumin 4.2 g/dL (3.5-5.0); Alkaline Phosphatase 77 U/L (38-126); Anion Gap 8 mmol/L; Blood Urea Nitrogen 8 mg/dL (7-17); Calcium 9.1 mg/dL (8.4-10.2); Carbon Dioxide 23 mmol/L (22-30); Chloride 111 mmol/L (98-107); Glucose 85 mg/dL (74-99); Lipase 81 U/L (23-300); Non-African American GFR(CKD) >90 (>60 ml/min/1.73 sqM); Potassium 3.9 mmol/L (3.5-5.1); Sodium 142 mmol/L (137-145); Total Bilirubin 0.6 mg/dL (0.2-1.3); Total Protein 7.3 g/dL (6.3-8.2)
[2022-01-23 15:41] LABS: Appearance,Urine Clear (Clear); Bilirubin,Urine Negative (Negative); Blood,Urine Moderate (Negative); Color,Urine Light Yellow; Glucose,Urine (UA) Negative (Negative); Ketones,Urine Negative (Negative); Leukocyte Esterase,Urine Negative (Negative); Nitrite,Urine Negative (Negative); Protein,Urine Negative (Negative); RBC,Urine 4 /hpf (0-5); Specific Gravity,Urine 1.002 (1.001-1.035); Urobilinogen,Urine <2.0 mg/dL (<2.0); WBC,Urine <1 /hpf (0-5)
[2022-01-23] MEDS ORDERED: KETOROLAC 15 MG/ML 1 ML VIAL IVP STA (16:03)
[2022-01-23] MEDS ORDERED: HYDROmorphone 1 MG/ML 1 ML SYRINGE IVP STA (16:18)
[2022-01-23] MEDS: LIDOCAINE 5% PATCH TOPICAL SCH ×2 (16:27→16:56)
[2022-01-23 16:34] VITALS: BP 164/68; PULSE 80
--- NOTE | 2022-01-23 16:44 | ED ---
Back Pain HPI - General Chief Complaint: Back Pain/Injury Stated Complaint: Back Pain Time Seen by Provider: 01/23/22 14:22 Source: patient Limitations: physical limitation - History of Present Illness Initial Comments: Patient is a 71-year-old female presents to the emergency department with a chief complaint of right lower back/side pain. Patient states symptoms are last night. Pain is localized to the right lower back with radiation to the right flank. Patient states she has history of vertebral disc herniation resulting in chronic back pain however states this is not like her typical back pain as currently there is radiation to the right side and no sciatica symptoms. Patient took Flexeril this morning with no relief. Patient does admit to a history of kidney stones. She denies nausea, vomiting, abdominal pain. She admits to blood in her urine however states it is a chronic issue due to renal cysts managed by her primary care provider. No burning with urination. No fever or chills. No recent back injury. No numbness or tingling in the groin. No loss of bladder or bowel control. No recent weight loss or history of cancer. - Related Data Home Medications Medication Instructions Recorded Confirmed Blood Pressure Med Unknown 1 tab PO DAILY 01/23/22 01/23/22 Cyclobenzaprine [Flexeril] 5 mg PO Q12H 01/23/22 01/23/22 HYDROcodone/APAP 10-325MG [Gill 1 tab PO Q12H PRN 01/23/22 01/23/22 10-325] Rosuvastatin [Crestor] 10 mg PO DAILY 01/23/22 01/23/22 Previous Rx's Medication Instructions Recorded Cyclobenzaprine [Flexeril] 10 mg PO TID PRN #15 tab 01/23/22 Lidocaine 5% Patch [Lidoderm 5% 1 patch TOPICAL DAILY PRN #5 patch 01/23/22 Patch] Allergies Allergy/AdvReac Type Severity Reaction Status Date / Time Iodinated Contrast Media Allergy Swelling, Verified 01/23/22 15:14 [Iodinated Contrast Media - "welts" IV Dye] Latex, Natural Rubber Allergy Rash/Hives Verified 01/23/22 15:14 Review of Systems ROS Statement: Those systems with pertinent positive or pertinent negative responses have been documented in the HPI. ROS Other: All systems not noted in ROS Statement are negative. Past Medical History Past Medical History: Hyperlipidemia, Hypertension, Osteoarthritis (OA) Additional Past Medical History / Comment(s): Kidney Stones. HX SURG for menorrhagia, fibroids, chronic back pain. covid 07/2020 History of Any Multi-Drug Resistant Organisms: None Reported Past Surgical History: Cholecystectomy, Hysterectomy, Orthopedic Surgery Additional Past Surgical History / Comment(s): ORIF left arm - 2 PLATES.,ORIF rt foot,bossman cataracts Past Anesthesia/Blood Transfusion Reactions: No Reported Reaction Past Psychological History: No Psychological Hx Reported Smoking Status: Current every day smoker Past Alcohol Use History: None Reported Past Drug Use History: None Reported - Past Family History Mother Family Medical History: Coronary Artery Disease (CAD), Myocardial Infarction (PR) General Exam Limitations: physical limitation Course Vital Signs 01/23/22 01/23/22 13:55 16:30 Temperature 98.2 F Pulse Rate 68 80 Respiratory 18 18 Rate Blood Pressure 161/87 164/68 O2 Sat by Pulse 97 98 Oximetry Medical Decision Making - Medical Decision Making This is a 71-year-old female who presents with right back/flank. Thorough history and examination were performed. Patient is afebrile. She is well- appearing but does appear to be in pain. No recent back injury. No saddle anesthesia or loss of bowel bladder control. She does have history of ki dney stones. No nausea or vomiting. No urinary symptoms. Patient has significant right-sided CVA tenderness. I will obtain laboratory studies and CT due to concern for kidney stone. Laboratory studies are relatively unremarkable. Patient has normal white count at 9.3. Urinalysis does reveal moderate blood however patient states this is a chronic issue. CT of abdomen and pelvis without contrast shows no evidence of hydronephrosis or stone. Pain controlled with Dilaudid and lidocaine patch. Results discussed with patient. At this time there are no diagnostic studies to explain patient's symptoms. Patient will be discharged with Flexeril and lidocaine patches with instruction to follow up with primary care provider for further evaluation of her symptoms. Patient verbalizes understanding and is agreeable to this plan. Dr. Hoffman is my attending. - Lab Data Result diagrams: 01/23/22 15:03 01/23/22 15:03 Lab Results 01/23/22 01/23/22 01/23/22 Range/Units 15:03 15:03 15:03 WBC 9.3 (3.8-10.6) k/uL RBC 4.27 (3.80-5.40) m/uL Hgb 13.4 (11.4-16.0) gm/dL Hct 39.8 (34.0-46.0) % MCV 93.3 (80.0-100.0) fL MCH 31.5 (25.0-35.0) pg MCHC 33.7 (31.0-37.0) g/dL RDW 14.3 (11.5-15.5) % Plt Count 157 (150-450) k/uL MPV 11.8 Neutrophils % 66 % Lymphocytes % 24 % Monocytes % 5 % Eosinophils % 2 % Basophils % 1 % Neutrophils # 6.2 (1.3-7.7) k/uL Lymphocytes # 2.3 (1.0-4.8) k/uL Monocytes # 0.5 (0-1.0) k/uL Eosinophils # 0.2 (0-0.7) k/uL Basophils # 0.0 (0-0.2) k/uL Sodium 142 (137-145) mmol/L Potassium 3.9 (3.5-5.1) mmol/L Chloride 111 H (98-107) mmol/L Carbon Dioxide 23 (22-30) mmol/L Anion Gap 8 mmol/L BUN 8 (7-17) mg/dL Creatinine 0.63 (0.52-1.04) mg/dL Est GFR (CKD-EPI)AfAm >90 (>60 ml/min/1.73 sqM) Est GFR (CKD-EPI)NonAf >90 (>60 ml/min/1.73 sqM) Glucose 85 (74-99) mg/dL Calcium 9.1 (8.4-10.2) mg/dL Total Bilirubin 0.6 (0.2-1.3) mg/dL AST 24 (14-36) U/L ALT 21 (4-34) U/L Alkaline Phosphatase 77 (38-126) U/L Total Protein 7.3 (6.3-8.2) g/dL Albumin 4.2 (3.5-5.0) g/dL Lipase 81 (23-300) U/L Urine Color Light Yellow Urine Appearance Clear (Clear) Urine pH 7.0 (5.0-8.0) Ur Specific [place] 1.002 (1.001-1.035) Urine Protein Negative (Negative) Urine Glucose (UA) Negative (Negative) Urine Ketones Negative (Negative) Urine Blood Moderate H (Negative) Urine Nitrite Negative (Negative) Urine Bilirubin Negative (Negative) Urine Urobilinogen <2.0 (<2.0) mg/dL Ur Leukocyte Esterase Negative (Negative) Urine RBC 4 (0-5) /hpf Urine WBC <1 (0-5) /hpf Disposition Clinical Impression: Back pain Disposition: HOME SELF-CARE Condition: Good Instructions (If sedation given, give patient instructions): Acute Low Back Pain (ED) Additional Instructions: Please take Flexeril and apply lidocaine patches as directed. Do not drink alcohol or operate machinery all taking Flexeril. Follow-up with your primary care provider. Return to the emergency department experience new, concerning, o r worsening symptoms. Prescriptions: Cyclobenzaprine [Flexeril] 10 mg PO TID PRN #15 tab PRN Reason: Muscle Spasm Lidocaine 5% Patch [Lidoderm 5% Patch] 1 patch TOPICAL DAILY PRN #5 patch PRN Reason: Pain Is patient prescribed a controlled substance at d/c from ED?: No Referrals: Ken Valdez MD [Primary Care Provider] - 1-2 days Time of Disposition: 16:44
[2022-01-23] MEDS ORDERED: ACET/COD 300 MG/30 MG STARTER PACK 6 TAB BTL PO STA (16:52)
== END 2022-01-23 17:13 | disposition home or self-care (01) ==
LOC: EC 13:43
DX: M54.50 Low back pain, unspecified (principal); F17.200 Nicotine dependence, unspecified, uncomplicated; Z82.49 Family history of ischemic heart disease and other diseases of the circulatory system; Z91.040 Latex allergy status
CPT/HCPCS: 36415; 80053; 83690; 85025; 81001; 74176; 99284; 96374; 96375; J2270; J1170

== ENCOUNTER → 2022-03-10 | Outpatient (CLI) | payer MEDICARE, OTHER ==
--- NOTE | 2022-03-10 20:55 | MR ---
EXAMINATION TYPE: MR cervical spine wo con DATE OF EXAM: 03/10/2022 COMPARISON: None HISTORY: SPONDYLOSIS WITH RADICULOPATHY, CERVICAL REGION, pain, weakness CONTRAST: None TECHNIQUE: Multiplanar multiecho imaging on a 3.0 Kenia magnet is performed through the cervical spin e. FINDINGS: The craniovertebral junction is normal. Vertebral body alignment is normal. Spinal cord maintains normal signal throughout its visualized course. C7-T1: No focal disc herniation or significant disc bulge is evident. No spinal canal stenosis or n eural foraminal stenosis is present. C6-7: Broad-based right paracentral disc bulge is present with mild to moderate anterior thecal sac c ompression. This comes in close approximation with the spinal cord. Minimal cord deformity may be pre sent. No AP spinal canal stenosis is present. Neural foramen are patent.. C5-6: Broad-based disc bulge is present with moderate anterior thecal sac impression. This has cord c ontact. Cord deformity is not evident. No spinal canal stenosis is present. There is mild foraminal n arrowing present bilaterally. C4-5: Very minimal central disc bulge is present with minimal anterior thecal sac compression. No cor d contact is evident. No spinal canal stenosis is present. Mild left foraminal narrowing is present.. C3-4: No focal disc herniation or significant disc bulge is evident. No spinal canal stenosis or julio ral foraminal stenosis is present. C2-3: No focal disc herniation or significant disc bulge is evident. No spinal canal stenosis or julio ral foraminal stenosis is present. IMPRESSIONS: 1. Right paracentral disc bulging C6-7 may have some mild cord deformity without AP spinal canal sten osis. 2. Broad-based moderate disc bulging at C5-6 is cord contact. Cord deformity however is not evident. No AP spinal canal stenosis.
== END | disposition home or self-care (01) ==
LOC: RADMRIMAIN 10:50
PROVIDERS: ATTEND Orthopaedic Surgery
DX: M47.22 Other spondylosis with radiculopathy, cervical region (principal); M50.122 Cervical disc disorder at C5-C6 level with radiculopathy
CPT/HCPCS: 72141

== ENCOUNTER → 2022-04-18 | Outpatient (CLI) | payer MEDICARE, OTHER ==
--- NOTE | 2022-04-18 10:37 | MR ---
EXAMINATION TYPE: MR lumbar spine wo/w con DATE OF EXAM: 04/18/2022 COMPARISON: CT lumbar spine 11/21/2018 HISTORY: INTERVERTEBRAL DISC DEGENERATION, LUMBAR TECHNIQUE: Multiplanar, multisequence images of the lumbar spine were acquired without and with 7.5 mL intraveno us Gadavist gadolinium contrast. L1-L2: Minimal posterior disc bulge causes slight anterior mass effect on the thecal sac. No signific ant foraminal encroachment. L2-L3: Minimal posterior disc bulge causes slight anterior mass effect on the thecal sac. There is mi ld facet arthropathy. No significant foraminal encroachment. L3-L4: Minimal posterior disc bulge causes slight anterior mass effect on the thecal sac. Circumferen tial disc bulge encroaches minimally on the inferior aspect of the foramina. There is some facet arth ropathy with virtually the ligamentum flavum. L4-L5: Facet arthropathy change with hypertrophy ligamentum flavum causes posterior lateral mass effe ct on the thecal sac. There is a broad-based posterior disc bulge somewhat eccentric towards the righ t causing some anterolateral mass effect on the thecal sac. Circumferential extension of disc materia l causes some encroachment on the inferior aspect of the foramina only. L5-S1: Posterior disc bulge causes minimal anterior mass effect on the thecal sac. Circumferential di sc bulge encroaches minimally on the inferior aspect of the foramina. There is some facet arthropathy change. Lumbar segments are intact. No paraspinal masses are identified. Conus medullaris has a normal appe arance. Lumbar vertebral bodies show preserved height and alignment. There is multilevel spondylosis with endplate discogenic marrow signal change. Loss of disc height signal at intervertebral levels is consistent with disc desiccation and degenerative disc disease. No significant spinal stenosis. Ther e is no abnormal enhancement following contrast administration. Cystic focus is present within the right lobe of the liver. Common bile duct is dilated. IMPRESSION: Degenerative disc disease, facet arthropathy as described. Common bile duct dilation, additional find ings above.
== END | disposition home or self-care (01) ==
LOC: RADMRIMAIN 08:21
PROVIDERS: ATTEND Family Medicine
DX: M51.36 Other intervertebral disc degeneration, lumbar region (principal); M47.816 Spondylosis without myelopathy or radiculopathy, lumbar region
CPT/HCPCS: 72158; A9585

== ENCOUNTER → 2022-05-05 | Outpatient (CLI) | payer MEDICARE, OTHER ==
--- NOTE | 2022-05-06 04:07 | MR ---
EXAMINATION TYPE: MR liver wo/w con DATE OF EXAM: 05/05/2022 COMPARISON: None HISTORY: F/U of liver cyst/mass. CONTRAST: Standard multiplanar, multisequence MRI departmental protocol images were obtained without contrast a nd with 8 mL intravenous Gadavist gadolinium contrast. Liver has normal size and contour. There are numerous cysts in the liver that measure up to 3 cm. Almanza creatic duct appears normal. The bile ducts are not dilated. No evidence of filling defect in the com mon bile duct. There is no evidence of pancreatic mass. Spleen is intact. The stomach is intact. There is no adrenal mass. Kidneys of normal size and contour. No hydronephrosis. There is no ascites. No sign of retroperitoneal adenopathy. Contrast images show normal enhancement of the kidneys. There is normal enhancement of the portal jordon ous system. No pathologic liver enhancement. Pancreas appears normal. No evidence of bone destruction . No evidence of pleural effusion. IMPRESSION: Numerous simple appearing hepatic cysts appear not significantly changed in size compared to the old CT scan of 08/28/2021. No dilated ducts. No evidence of a solid liver mass.
== END | disposition home or self-care (01) ==
LOC: RADMRIMAIN 05:57
PROVIDERS: ATTEND Family Medicine
DX: K76.89 Other specified diseases of liver (principal)
CPT/HCPCS: 74183; A9585

== ENCOUNTER → 2022-05-06 | Outpatient (CLI) | payer MEDICARE, OTHER ==
--- NOTE | 2022-05-06 10:48 | MM ---
Reason for Exam: Screening (asymptomatic). Last mammogram was performed 1 year(s) and 11 month(s) ago. Patient History: Menarche at age 15. First Full-Term at age 18. Left ovary removed at age 26. Right ovary removed at age 26. Hysterectomy at age 26. Postmenopausal. Risk Values: Jalyn 5 year model risk: 1.1%. NCI Lifetime model risk: 3.2%. Prior Study Comparison: 06/30/2017 Bilateral Screening Mammogram, [facility]. 11/25/2018 Bilateral Screening Mammogram, [facility]. 06/04/2020 Bilateral Screening Mammogram, [facility]. Tissue Density: There are scattered fibroglandular densities. Findings: Analyzed By CAD. There is no suspicious group of microcalcifications or new suspicious mass in either breast. Overall Assessment: Negative, BI-RAD 1 Management: Screening Mammogram of both breasts in 1 year. A clinical breast exam by your physician is recommended on an annual basis and results should be correlated with mammographic findings. Electronically signed and approved by: Jaiden Georges DO
== END | disposition home or self-care (01) ==
LOC: RADMAMWWP 06:50
PROVIDERS: ATTEND Family Medicine
DX: Z12.31 Encounter for screening mammogram for malignant neoplasm of breast (principal); Z78.0 Asymptomatic menopausal state
CPT/HCPCS: 77063; 77067

== ENCOUNTER → 2022-10-21 | Outpatient (CLI) | payer MEDICARE, OTHER ==
--- NOTE | 2022-10-21 12:26 | CT ---
EXAMINATION TYPE: CT ChestAbdPelvis wo con CT DLP: 689.4 mGycm, Automated exposure control for dose reduction was used. DATE OF EXAM: 10/21/2022 11:48 AM COMPARISON: CT abdomen and pelvis 01/23/2022, CT chest abdomen 08/28/2021. CLINICAL INDICATION:Female, 72 years old with history of R10.11 ruq pain NO CONTRAST OF ANY KIND; PHH , RUQ pain Technique: Multiple axial images of the chest, abdomen, and pelvis were obtained without the administ ration of intravenous or oral contrast. Two-dimensional coronal and sagittal reconstructions were obt ained. Findings: Evaluation is limited due to lack of intravenous or oral contrast. CHEST: LUNGS/ PLEURA: No pleural effusion, pneumothorax, or focal consolidation. No suspicious pulmonary nod ules or masses. Minimal right upper lobe and medial paraseptal emphysematous changes. AIRWAY: Patent and unremarkable.. HEART: Size within normal limits. Minimal coronary arterial calcifications. No pericardial effusion. MEDIASTINUM: No gross evidence of adenopathy. VASCULATURE: No aortic aneurysm. Mild atherosclerotic calcification of the aorta and its branches. MUSCULOSKELETAL: No acute osseous abnormalities. No aggressive osseous lesion. SOFT TISSUES/LYMPH NODES: Unremarkable. LOWER NECK: No significant findings. ABDOMEN: ABDOMEN LIVER: Stable hepatic cysts. GALLBLADDER AND BILE DUCTS: The gallbladder is surgically absent. No biliary ductal dilatation. PANCREAS: Unremarkable. SPLEEN: Unremarkable. ADRENAL GLANDS: Unremarkable. KIDNEYS AND URETERS: No evidence of hydronephrosis or renal calculus. PELVIS BLADDER: Incompletely distended but grossly unremarkable. REPRODUCTIVE: The uterus is surgically absent. No suspicious adnexal mass. ABDOMEN & PELVIS STOMACH AND BOWEL: Stomach and duodenum are unremarkable. Mild amount of stool present throughout the colon. No focal wall thickening or surrounding inflammatory changes. The appendix is within normal l imits. No evidence of bowel obstruction. PERITONEUM: No evidence of pneumoperitoneum or free fluid. VASCULATURE: Ectasia of the proximal infrarenal abdominal aorta measuring up to 2.9 cm. Moderate atel ectatic calcification of the aorta and its branches. MUSCULOSKELETAL: No acute osseous abnormalities. No aggressive osseous lesion. Mild multilevel degene rative disc disease at L5-S1. LYMPH NODES: No gross evidence for lymphadenopathy. SOFT TISSUE/ABDOMINAL WALL: Unremarkable IMPRESSION: 1. No acute thoracic, abdominal, or pelvic process within limitations of a noncontrast exam. 2. Ectasia of the proximal infrarenal abdominal aorta measuring up to 2.9 cm. 3. Minimal emphysematous changes.
== END | disposition home or self-care (01) ==
LOC: RADCTMAIN 11:24
PROVIDERS: ATTEND Family Medicine
DX: J43.9 Emphysema, unspecified (principal); I77.811 Abdominal aortic ectasia
CPT/HCPCS: 71250; 74176

== ENCOUNTER → 2023-01-06 | Outpatient (CLI) | payer MEDICARE, OTHER ==
--- NOTE | 2023-01-06 14:23 | CT ---
EXAMINATION TYPE: CT thoracic spine wo con DATE OF EXAM: 01/06/2023 COMPARISON: 01/23/2022 CT abdomen and pelvis HISTORY: Mid to low back pain. No injury. CT DLP: 535.8 mGycm Automated exposure control for dose reduction was used. Contrast: None Technique: Axial images 3 mm thick sections. Reconstructed images in the coronal and sagittal plane. FINDINGS: In the region of T6-7 there is some posterior right paracentral endplate spurring with mild anterior thecal sac compression. Correlation for radicular symptoms. No spinal canal stenosis is present. Neur al foramen appears patent. No suspicious focal disc herniation is evident. No AP spinal canal stenosis is present. Vertebral bod y heights are preserved. Some osteopenia may be present. Diffuse loss of disc height is present. Vert ebral body alignment is preserved. IMPRESSION: 1. ENDPLATE SPURRING IN THE REGION OF THE PARACENTRAL T6-7. 2. OSTEOPENIA.
--- NOTE | 2023-01-06 14:32 | CT ---
EXAMINATION TYPE: CT lumbar spine wo con DATE OF EXAM: 01/06/2023 COMPARISON: CT chest abdomen and pelvis 10/21/2022 HISTORY: Low back pain. No injury. CT DLP: 579.1 mGycm CONTRAST: None TECHNIQUE: CT of the lumbar spine is performed on a spiral scan at 3 mm thick sections . Reconstructed images are performed in the coronal and sagittal planes. FINDINGS: Sacroiliac joint degenerative changes are present. Some vacuum joint space phenomenon is pr esent. Incidental note is made of some fusiform prominence of the proximal abdominal aorta with an AP dimens ion of 2.7 cm. T12-L1: No focal disc herniation or significant disc bulge is evident. No spinal canal stenosis or neural foraminal stenosis is present. L1-L2: No focal disc herniation or significant disc bulge is evident. No spinal canal stenosis or n eural foraminal stenosis is present L2-L3: No focal disc herniation or significant disc bulge is evident. No spinal canal stenosis or n eural foraminal stenosis is present L3-L4: Mild disc bulge has anterior thecal sac flattening. No AP spinal canal stenosis is present. Mi ld foraminal narrowing is present L4-L5: Broad-based disc bulge, greater to the right paracentral region, has moderate anterior thecal sac flattening. No AP spinal canal stenosis is present. Mild left and moderate right foraminal narrow ing is present. L5-S1: No focal disc herniation or significant disc bulge is evident. Degenerative disc change with vacuum disc phenomenon is present. No spinal canal stenosis or neural foraminal stenosis is present Vertebral alignment appears normal. IMPRESSION: 1. Mild disc bulging lower lumbar spine greatest at L4-5 with moderate intrathecal sac flattening. No stenosis is present. 2. Mild foraminal narrowing lower lumbar spine 3. Incidental note of fusiform prominence proximal abdominal aorta.
== END | disposition home or self-care (01) ==
LOC: RADCTMAIN 07:13
PROVIDERS: ATTEND Family Medicine
DX: M51.16 Intervertebral disc disorders with radiculopathy, lumbar region (principal); M99.73 Connective tissue and disc stenosis of intervertebral foramina of lumbar region; M85.88 Other specified disorders of bone density and structure, other site
CPT/HCPCS: 72128; 72131

== ENCOUNTER → 2023-04-29 | Outpatient (CLI) | payer MEDICARE, OTHER ==
[2023-04-29 13:00] VITALS: BP 140/65; PULSE 68; RESP 16; TEMP 98.3
--- NOTE | 2023-04-29 14:31 | P.PAINPG ---
PQRS Measure Charge Sheet Comment: A 72 yr old female with a history of severe and chronic LBP x > 10 yrs secondary to lumbar DDD and spondylosis with facet arthropathy without myelopathy presents today for evaluation. Pain level is provoked at 8/10 in intensity, constant, localized in the lumbar spine, burning in character w shooting towards the RLE. Pain is provoked by weight bearing activities. Pain is alleviated with yeat, ice, medications ([place], Ibu), Lidoderm patches, PT twice weekly x 4-5 wks in Nov 2021, massage therapy in Oct 2022 without relief, physician guided home exercises & stretches weekly since Oct 2022 without relief, repositioning and rest. She did not follow through with obtaining a TENS unit as directed from her Sep 2021 visit. Oswestry axial pain score at 30. Interventional pain procedures completed include DENIES Patient is currently on [place], Ibu Patient denies any side effects of the medication(s), denies excessive drowsiness or sleepiness, denies suicidal ideation and reports that the current pain medication is helping to control the pain and improve activities of daily living. Patient denies any motor or sensory deficits. Patient denies any fever or night sweats, denies any change in the bowel movements or urination. Physical Examination: -Constitutional: Cooperative. Not in acute distress . - Neurologic: Cranial nerve II to XII intact. No focal neurological deficits. - Psychatric: Alert & oriented x 3. Matching mood & appropriate affect. Judgment and insight intact. - Musculoskeletal: Cervical spine: Muscle bulk/ tone/ strength in the bilateral upper extremities normal Vertebral body tenderness to palpation over Spurling test positive Distraction test positive Facet loading test positive TTP Thoracic spine Muscle bulk / tone/ strength in the bilateral paraspinal muscles normal Vertebral body tender to palpation over Facet loading test positive TTP Lumbar spine: Motor bulk/ tone/ strength lower extremities , thigh and legs : 5/5 Deep tendon reflexes : Normal Knee Jerk. Normal Ankle Jerk . Vertebral body tenderness to palpation over L5 Segal Test positive Lumbar Facet Loading Test positive Straight Leg Raise: positive at 30 degrees right side/ left side Gaenslen's Test positive Sacral spine : Severe tenderness over the Sacroiliac joint: right side / left side Range of motion: Flexion of the lumbar spine <60 degrees Range of motion: Extension of the lumbar spine <20 degrees Gaenslen's Test positive right side / left side Jose test: positive right side / left side Thigh Thrust Test positive right side / left side Sacral Thrust Test positive right side / left side Assessment and plan: Chronic LBP secondary to lumbar DDD, spondylosis with facet arthropathy without myelopathy Recommendation of NIDA L5-S1. May need a series of injections for optimal pain relief. Risks, benefits of procedure discussed and pt verbalized understanding. Admits to anticoagulant use or medical history of diabetes. Protocol for discontinuation/ continuation of medications rogelio procedure discussed. Minimal anesthesia provided, if clinically indicated, consisting of Versed and Fentanyl. All questions answered. I have spent less than 30 minutes on patient care today. Dr Ibrahim was available by phone for the evaluation of this patient. The time was used to review the medical records including relevant urine studies and Prescription history (MAPs), review of the available imaging, evaluation and examination of the patient, coordination of care with the medical staff and if applicable referring physicians, as well as creation of the medical record PQRS Narrative: Smoking Status Current every day smoker Hx Alcohol Use (MH) No Home Medications: Ambulatory Orders Blood Pressure Med Unknown 1 tab PO DAILY 01/23/22 Cyclobenzaprine [Flexeril] 5 mg PO Q12H 01/23/22 Cyclobenzaprine [Flexeril] 10 mg PO TID PRN #15 tab 01/23/22 HYDROcodone/APAP 10-325MG [[place] 10-325] 1 tab PO Q12H PRN 01/23/22 Lidocaine 5% Patch [Lidoderm 5% Patch] 1 patch TOPICAL DAILY PRN #5 patch 01/23/22 Rosuvastatin [Crestor] 10 mg PO DAILY 01/23/22 Controlled Substance Measures - Controlled Substance Measures Is patient prescribed a controlled substance at discharge?: No
== END ==
LOC: PNWHC3 12:25
PROVIDERS: ATTEND Specialist
DX: M51.36 Other intervertebral disc degeneration, lumbar region (principal); M79.2 Neuralgia and neuritis, unspecified; M48.061 Spinal stenosis, lumbar region without neurogenic claudication; M47.816 Spondylosis without myelopathy or radiculopathy, lumbar region; G89.29 Other chronic pain; F17.200 Nicotine dependence, unspecified, uncomplicated; Z91.041 Radiographic dye allergy status; Z91.040 Latex allergy status
CPT/HCPCS: 99211

== ENCOUNTER 2023-05-09 09:17 | Emergency (ER) | payer MEDICARE, OTHER ==
[2023-05-09] MEDS ORDERED: HYDROmorphone 0.5 MG/0.5 ML SYRINGE IM STA (09:33)
[2023-05-09] MEDS ORDERED: KETOROLAC 15 MG/ML 1 ML VIAL IM STA (09:33)
--- NOTE | 2023-05-09 09:50 | ED ---
Extremity Problem HPI - General Chief complaint: Extremity Problem,Nontraumatic Stated complaint: Lt leg pain Time Seen by Provider: 05/09/23 09:27 Source: patient, RN notes reviewed Mode of arrival: wheelchair Limitations: no limitations - History of Present Illness Initial comments: This is a 72-year-old female who presents to the emergency department for left leg pain. States that this started 4 days ago. Denies any injuries. She is unable to lift the left leg due to pain. States that it is primarily behind the left knee and started to travel up the leg. She is not on any blood thinners. Denies any history of similar symptoms in the past. She is taking [place] and ibuprofen without any improvement in symptoms. Denies any fevers, chills, sore throat, cough, dyspnea, chest pain, palpitations, abdominal pain, nausea, vomiting, diarrhea, back pain, or headaches. MD Complaint: extremity pain Onset/Timin -: days(s) Location: left, lower extremity - Related Data Home Medications Medication Instructions Recorded Confirmed Rosuvastatin [Crestor] 10 mg PO DAILY 01/23/22 04/29/23 ALPRAZolam [Xanax] 1 mg PO HS 04/29/23 04/29/23 Budesonide/Glycopyr/Formoterol 1 puff INHALATION BID 04/29/23 04/29/23 [Breztri Aerosphere Inhaler] HYDROcodone/APAP 5-325MG [[place] 1 tab PO Q12HR PRN 04/29/23 04/29/23 5-325] Metoprolol Succinate (ER) [Toprol 50 mg PO DAILY 04/29/23 04/29/23 Xl] Previous Rx's Medication Instructions Recorded Lidocaine 5% Patch [Lidoderm 5% 1 patch TOPICAL DAILY PRN #5 patch 01/23/22 Patch] methocarbamoL [Robaxin-750] 1,500 mg PO QID PRN #30 tab 05/09/23 predniSONE 50 mg PO DAILY 5 Days #5 tab 05/09/23 Allergies Allergy/AdvReac Type Severity Reaction Status Date / Time Iodinated Contrast Media Allergy Swelling, Verified 05/09/23 09:19 [Iodinated Contrast Media - "welts" IV Dye] Latex, Natural Rubber Allergy Rash/Hives Verified 05/09/23 09:19 Review of Systems ROS Statement: Those systems with pertinent positive or pertinent negative responses have been documented in the HPI. ROS Other: All systems not noted in ROS Statement are negative. Past Medical History Past Medical History: Hyperlipidemia, Hypertension, Osteoarthritis (OA) Additional Past Medical History / Comment(s): Kidney Stones. HX SURG for menorrhagia, fibroids, chronic back pain. covid 07/2020 History of Any Multi-Drug Resistant Organisms: None Reported Past Surgical History: Cholecystectomy, Hysterectomy, Orthopedic Surgery Additional Past Surgical History / Comment(s): ORIF left arm - 2 PLATES.,ORIF rt foot,bossman cataracts Past Anesthesia/Blood Transfusion Reactions: No Reported Reaction Past Psychological History: No Psychological Hx Reported Smoking Status: Former smoker Past Alcohol Use History: Rare Past Drug Use History: None Reported - Past Family History Mother Family Medical History: Coronary Artery Disease (CAD), Myocardial Infarction (SC) General Exam Limitations: no limitations General appearance: alert, in no apparent distress Head exam: Present: atraumatic, normocephalic, normal inspection Respiratory exam: Present: normal lung sounds bilaterally. Absent: respiratory distress, wheezes, rales, rhonchi, stridor Cardiovascular Exam: Present: regular rate, normal rhythm, normal heart sounds. Absent: systolic murmur, diastolic murmur, rubs, gallop, clicks Extremities exam: Present: other (Tenderness to palpation over the left popliteal fossa and to the left calf. No overlying swelling, erythema, or increased heat. 2+ DP and PT pulses. Capillary refill less than 1 second.) Neurological exam: Present: alert, oriented X3, CN II-XII intact Psychiatric exam: Present: normal affect, normal mood Skin exam: Present: warm, dry, intact, normal color. Absent: rash Course Vital Signs 05/09/23 05/09/23 05/09/23 09:19 11:40 12:50 Temperature 98.2 F 98.4 F Pulse Rate 66 61 67 Respiratory 18 18 15 Rate Blood Pressure 137/78 136/73 137/69 O2 Sat by Pulse 99 96 97 Oximetry Medical Decision Making - Medical Decision Making This is a 72-year-old female who presents to the emergency department for left leg pain. Was pt. sent in by a medical professional or institution? @ -No Did you speak to anyone other than the patient for history? @ -No Did you review nursing and triage notes? @ -Yes, and I agree, it is accurate with regards to the patient's symptoms. Were old charts reviewed? @ -No Differential Diagnosis? @ -Differential Leg Pain: Leg fracture, leg sprain, DVT, PVD, arterial insufficiency, iliac artery aneurysm, cellulitis, compartment syndrome, tendinopathy, nerve entrapment, pir iformis syndrome, osteoarthritis, rhabdomyolysis, myositis, cramping from an electrolyte imbalance, this is not meant to be an all inclusive list. EKG interpreted by me (3pts min.)? @ -Not obtained X-rays interpreted by me (1pt min.)? @ -X-ray of the left tib-fib and femur obtained. My interpretation identifies no acute fractures. CT interpreted by me (1pt min.)? @ -Not obtained U/S interpreted by me (1pt. min.)? @ -Duplex ultrasound of the left lower extremity obtained. My interpretation identifies no evidence of a DVT. What testing was considered but not performed? (CT, X-rays, U/S, labs)? Why? @ -None What meds were considered but not given? Why? @ -None Did you discuss the management of the patient with other professionals? @ -No Did you reconcile home meds? @ -No Was smoking cessation discussed for >3mins.? @ -No Was critical care preformed (if so, how long)? @ -No Were there social determinants of health that impacted care today? How? (Homelessness, low income, unemployed, alcoholism, drug addiction, transportation, low edu. Level, literacy, decrease access to med. care, prison, rehab)? @ -No Was there de-escalation of care discussed even if they declined? (Discuss DNR or withdrawal of care, Hospice)? @ -No What co-morbidities impacted this encounter? (DM, HTN, Smoking, COPD, CAD, Cancer, CVA, Hep., AIDS, mental health diagnosis, sleep apnea, morbid obesity)? @ -Osteoarthritis Was patient admitted / discharged? @ -Discharged. Duplex ultrasound of the left lower extremity obtained revealing no evidence of a DVT or other acute process. X-ray of the left lower extremity obtained as well, also revealed no acute findings to account for the patient's symptoms. Discussed with the patient that the cause of her symptoms is not entirely clear. Her pain was controlled in the emergency department. Prescription for prednisone and Robaxin provided with dosing instructions reviewed. Advised that the Robaxin is sedating and she should avoid driving or operating machinery when taking this. She will otherwise follow up with her primary care provider. Undiagnosed new problem with uncertain prognosis? @ -None Drug Therapy requiring intensive monitoring for toxicity (Heparin, Nitro, Insulin, Cardizem)? @ -None Were any procedures done? @ -None Diagnosis/symptom? @ -Left leg pain Acute, or Chronic, or Acute on Chronic? @ -Acute Uncomplicated (without systemic symptoms) or Complicated (systemic symptoms)? @ -Uncomplicated Side effects of treatment? @ -None Exacerbation, Progression, or Severe Exacerbation] @ -Not applicable Poses a threat to life or bodily function? @ -No Return precautions reviewed in depth, the patient is instructed to return to the emergency department with any new, worsening, or concerning symptoms. Patient verbalized understanding. This case was discussed in detail with the attending ED physician, Dr. Díaz. Presentation, findings, and treatment plan discussed in detail as well. - Radiology Data Radiology results: report reviewed, image reviewed Disposition Clinical Impression: Left leg pain Disposition: HOME SELF-CARE Instructions (If sedation given, give patient instructions): Leg Pain (ED) Additional Instructions: Return to the emergency department with any new, worsening, or concerning symptoms. Take the prednisone daily for 5 days. You can take the Robaxin up to 4 times daily as needed for additional pain relief. Follow-up with orthopedics for reevaluation of ongoing symptoms. Follow up with your primary care provider in 1-2 days. Prescriptions: predniSONE 50 mg PO DAILY 5 Days #5 tab methocarbamoL [Robaxin-750] 1,500 mg PO QID PRN #30 tab PRN Reason: Pain Is patient prescribed a controlled substance at d/c from ED?: No Referrals: Ken Vadlez MD [Primary Care Provider] - 1-2 days Zack Leslie MD [Medical Doctor] - 1-2 days
--- NOTE | 2023-05-09 10:25 | US ---
EXAMINATION TYPE: US venous doppler duplex LE LT DATE OF EXAM: 05/09/2023 10:18 AM COMPARISON: NONE CLINICAL INDICATION: Female, 72 years old with history of Left leg pain; pain SIDE PERFORMED: Left TECHNIQUE: The lower extremity deep venous system is examined utilizing real time linear array sonog talha with graded compression, doppler sonography and color-flow sonography. VESSELS IMAGED: Common Femoral Vein Deep Femoral Vein Greater Saphenous Vein * Femoral Vein Popliteal Vein Small Saphenous Vein * Proximal Calf Veins (* superficial vessels) Grayscale, color doppler, spectral doppler imaging performed of the deep veins of the left lower extr emity. There is normal flow, compressibility, vascular waveforms. Left Leg: Negative for DVT IMPRESSION: No ultrasound evidence for deep venous thrombosis of the left lower extremity.
[2023-05-09] MEDS ORDERED: HYDROmorphone 1 MG/ML 1 ML SYRINGE IVP STA (10:49)
--- NOTE | 2023-05-09 11:36 | XR ---
EXAMINATION TYPE: XR tibia fibula LT, XR femur LT DATE OF EXAM: 05/09/2023 11:14 AM INDICATION: Patient age:Female; 72 years old; Reason for study: pain; PHH. COMPARISON: None TECHNIQUE: The left tibia/fibula and femur was examined in AP and lateral projections. FINDINGS: No evidence of any acute osseous pathology, joint dislocation, or soft tissue swelling is n oted. Increased density within the bilateral menisci. IMPRESSION: 1. No evidence of acute fracture. 2. Chondrocalcinosis.
[2023-05-09 12:53] VITALS: BP 137/69; PULSE 67; RESP 15; TEMP 98.4
== END 2023-05-09 13:28 | disposition home or self-care (01) ==
LOC: EC 09:17
DX: M79.605 Pain in left leg (principal); E78.5 Hyperlipidemia, unspecified; I10 Essential (primary) hypertension; M19.90 Unspecified osteoarthritis, unspecified site; Z87.891 Personal history of nicotine dependence; Z79.1 Long term (current) use of non-steroidal anti-inflammatories (NSAID); Z79.899 Other long term (current) drug therapy; Z91.041 Radiographic dye allergy status; Z91.040 Latex allergy status; Z86.16 Personal history of COVID-19
CPT/HCPCS: 73552; 73590; 93971; 99284; 96374; 96372 ×2; J1170 ×2; J1885

== ENCOUNTER → 2023-06-06 | Outpatient (CLI) | payer MEDICARE, OTHER ==
--- NOTE | 2023-06-07 08:50 | MR ---
EXAMINATION TYPE: MR thoracic spine wo/w con DATE OF EXAM: 06/06/2023 9:53 AM COMPARISON: NONE HISTORY: Mid back pain 2+ years Multiplanar MultiSpin echo imaging of the thoracic spine was performed. Postcontrast enhanced images submitted. Disc spaces: Mild decreased signal and loss of height extending from C5-6 through T12-L1. There is ri ght paracentral disc protrusion at T6-7 resulting in mild effacement of the thecal sac and mild disto rtion of the thoracic spinal cord without definite cord contact or myelopathy. There is posterior dis c bulge at T7-8, T8-9, T10-11 2012-L1. Spinal canal: No evidence for canal stenosis. No intrinsic or extrinsic lesion. Thoracic spinal cord: Thoracic spinal cord is of normal caliber and signal. Paraspinal soft tissues: No evidence for paraspinal mass. No destructive lesions seen. Vertebral segments: No evidence for fracture or bony lesion. Scattered ventral spondylosis. IMPRESSION: 1. Multilevel degenerative disc disease. 2. Right paracentral disc protrusion at T6-7 as discussed above.
== END | disposition home or self-care (01) ==
LOC: RADMRIMAIN 08:40
PROVIDERS: ATTEND Family Medicine
DX: M51.14 Intervertebral disc disorders with radiculopathy, thoracic region (principal); M47.24 Other spondylosis with radiculopathy, thoracic region
CPT/HCPCS: 72157; A9585

== ENCOUNTER → 2023-06-10 | Outpatient (CLI) | payer MEDICARE, OTHER ==
[2023-06-10 08:22] VITALS: BP 159/70; PULSE 70; RESP 16; TEMP 98
--- NOTE | 2023-06-10 14:16 | P.PAINPG ---
PQRS Measure Charge Sheet Comment: A 73 yr old female with a history of severe and chronic LBP x > 10 yrs secondary to lumbar DDD and spondylosis with facet arthropathy without myelopathy presents today for evaluation s/p NIDA L5-S1. Pt states she experienced 50% pain relief x 2 days s/p procedure. Pain level is provoked at 8/10 in intensity, constant, localized in the lumbar spine, burning in character w shooting towards the RLE. Pain is provoked by weight bearing activities. Pain is alleviated with yeat, ice, medications, Lidoderm patches, PT twice weekly x 4-5 wks in Nov 2021, massage therapy in Oct 2022 without relief, physician guided home exercises & stretches weekly since Oct 2022 without relief, use of a lumbar pillow, repositioning and rest. Oswestry axial pain score at 20. Interventional pain procedures completed include NIDA L5-S1 x1 Patient is currently on [place], Ibu Patient denies any side effects of the medication(s), denies excessive drowsiness or sleepiness, denies suicidal ideation and reports that the current pain medication is helping to control the pain and improve activities of daily living. Patient denies any motor or sensory deficits. Patient denies any fever or night sweats, denies any change in the bowel movements or urination. Physical Examination: -Constitutional: Cooperative. Not in acute distress . - Neurologic: Cranial nerve II to XII intact. No focal neurological deficits. - Psychatric: Alert & oriented x 3. Matching mood & appropriate affect. Judgment and insight intact. - Musculoskeletal: Cervical spine: Muscle bulk/ tone/ strength in the bilateral upper extremities normal Vertebral body tenderness to palpation over Spurling test positive Distraction test positive Facet loading test positive TTP Thoracic spine Muscle bulk / tone/ strength in the bilateral paraspinal muscles normal Vertebral body tender to palpation over Facet loading test positive TTP Lumbar spine: Motor bulk/ tone/ strength lower extremities , thigh and legs : 5/5 Deep tendon reflexes : Normal Knee Jerk. Normal Ankle Jerk . Vertebral body tenderness to palpation over L5 Segal Test positive Lumbar Facet Loading Test positive over BL L4-L5, L5-S1 Straight Leg Raise: positive at 30 degrees right side/ left side Gaenslen's Test positive Sacral spine : Severe tenderness over the Sacroiliac joint: right side / left side Range of motion: Flexion of the lumbar spine <60 degrees Range of motion: Extension of the lumbar spine <20 degrees Gaenslen's Test positive right side / left side Jose test: positive right side / left side Thigh Thrust Test positive right side / left side Sacral Thrust Test positive right side / left side Assessment and plan: Chronic LBP secondary to lumbar DDD, spondylosis with facet arthropathy without myelopathy Recommendation of BL facet blocks of the medial branches L4-L5, L5-S1. May need a series of injections, up until RFA, for optimal pain relief. Risks, benefits of procedure discussed and pt verbalized understanding. Admits to anticoagulant use or medical history of diabetes. Protocol for discontinuation/ continuation of medications rogelio procedure discussed. Minimal anesthesia provided, if clinically indicated, consisting of Versed and Fentanyl. All questions answered. I have spent less than 30 minutes on patient care today. Dr Ibrahim was available by phone for the evaluation of this patient. The time was used to review the medical records including relevant urine studies and Prescription history (MAPs), review of the available imaging, evaluation and examination of the patient, coordination of care with the medical staff and if applicable referring physicians, as well as creation of the medical record PQRS Narrative: Smoking Status Current every day smoker Hx Alcohol Use (MH) Yes: Rare Home Medications: Ambulatory Orders Rosuvastatin [Crestor] 10 mg PO DAILY 01/23/22 ALPRAZolam [Xanax] 1 mg PO DAILY PRN 04/29/23 Budesonide/Glycopyr/Formoterol [Breztri Aerosphere Inhaler] 1 puff INHALATION BID 04/29/23 HYDROcodone/APAP 5-325MG [[place] 5-325] 1 tab PO Q12HR PRN 04/29/23 Metoprolol Succinate (ER) [Toprol Xl] 50 mg PO DAILY 04/29/23 Controlled Substance Measures - Controlled Substance Measures Is patient prescribed a controlled substance at discharge?: No
== END ==
LOC: PNWHC3 07:40
PROVIDERS: ATTEND Specialist
DX: M51.37 Other intervertebral disc degeneration, lumbosacral region (principal); M47.817 Spondylosis without myelopathy or radiculopathy, lumbosacral region; G89.29 Other chronic pain; F17.200 Nicotine dependence, unspecified, uncomplicated; Z91.041 Radiographic dye allergy status; Z91.040 Latex allergy status
CPT/HCPCS: 99211

== ENCOUNTER 2023-07-03 07:57 | Day surgery (SDC) | payer MEDICARE, OTHER ==
[2023-06-29 16:34] VITALS: BMI 28.3
[~2023-07-03 07:57] MED LIST: LACTATED RINGERS 1,000 ML IV SCH
[2023-07-03 08:36] VITALS: RESP 16; TEMP 98.1
[2023-07-03] MEDS ORDERED: MIDAZOLAM 2 MG/2 ML VIAL ONE (08:44)
[2023-07-03] MEDS ORDERED: fentaNYL (PF) 50 MCG/ML 2 ML AMP ONE (08:44)
[2023-07-03] MEDS ORDERED: ROPIVACAINE 5MG/ML 20ML VIAL ONE (08:52)
[2023-07-03] MEDS ORDERED: methylPREDNISolone ACETATE 40 MG/ML 1 ML VIAL ONE (08:52)
[2023-07-03] MEDS ORDERED: IV FLUID CONTINUATION 600 ML IV ONE (09:06)
--- NOTE | 2023-07-03 09:06 | P.PCN ---
Date of Procedure: 07/03/23 Procedure(s) Performed: PREOPERATIVE DIAGNOSIS : 1- Lumbar spondylosis with Facet Arthropathy without myelopathy . 2- Lumber degenerative disc disease POSTOPERATIVE DIAGNOSIS: 1- Lumbar spondylosis with Facet Arthropathy without myelopathy . 2- Lumber degenerative disc disease PROCEDURE: Diagnostic bilateral L3 , L4 , and L5 medial branch block under fluoroscopy guidance(fluoroscopy images available in the radiology Department ) ( To target the facet joint between Bilateral L4-5 , and L5-S1 )#1st ANESTHESIA:, Monitored anesthesia care as per anesthesia department. EBL: Minimal COMPLICATION: None PROCEDURE INDICATION: Chronic low back pain secondary to Facet arthropathy unresponsive to conservative treatment. PROCEDURE DESCRIPTION: the patient was seen and identified in the preop holding area , risks and benefits and possible complications of the procedure and alternative were discussed with the patient, and the patient agreed to proceed with the procedure and signed the consent and vital signs monitored during the procedure and fluoroscopy was used to maximize the benefit and accuracy of the needle placement, and sedation was given to decrease patient anxiety, patient was taken to the procedure room and placed in prone position vital signs monitored in the back prepped with chlorhexidine X3 then under strict sterile technique using a right oblique fluoroscopy ,the junction of the transverse process and the superior articulating process of the right L3 , L4 , and L5 vertebra which corresponding to the fluoroscopy image of the eye of the Gerald dog on the block side for the medial branches and subsequently , after local infiltration of skin and subcu tissuies with Ropivacaine 0.5 % , one mL at each level ,then 22-gauge Quincke-type needles , 3 needle was used , each one of them placed at the junction of the base of the transverse process and the superior articular process at the appropriate level, and the needle was advanced until the periosteum contacted, needle placement confirmed with AP oblique and lateral view and after appropriate needle placement confirmed, and after negative aspiration for heme and CSF and there was no paresthesia 1-1/2 mL of Ropivacaine 0.5% mixed with 20 mg Depo-Medrol , then half mL injected at each level after negative aspiration the needle subsequently removed and the same procedure repeated for the left side at left side at L3 , L4 and L5 levels. At the end of the procedure and the needles removed and a bandage applied after the skin was cleaned the cleaning solution patient taken to recovery room in stable condition and monitors in the recovery room for 20-30 minutes and discharged home in stable condition after discharge criteria met and patient will follow up with the pain clinic in 2-4 weeks
[2023-07-03 09:30] VITALS: BP 144/80; PULSE 63
--- NOTE | 2023-07-03 10:28 | FL ---
EXAMINATION TYPE: FL guided pain mgmt statistic DATE OF EXAM: 07/03/2023 FLUOROSCOPY Fluoroscopy time of 8 seconds was used during bilateral lumbar facet blocks. 4 image/s document/s th e procedure. .[id number] [id number] DAP
== END 2023-07-03 09:49 | disposition home or self-care (01) ==
LOC: ORPAIN 07:57
PROVIDERS: ATTEND Specialist
DX: M47.816 Spondylosis without myelopathy or radiculopathy, lumbar region (principal); M51.36 Other intervertebral disc degeneration, lumbar region; G89.29 Other chronic pain; I10 Essential (primary) hypertension; E78.5 Hyperlipidemia, unspecified; M48.061 Spinal stenosis, lumbar region without neurogenic claudication; Z91.041 Radiographic dye allergy status; Z91.040 Latex allergy status; K21.9 Gastro-esophageal reflux disease without esophagitis; Z79.899 Other long term (current) drug therapy
CPT/HCPCS: 64493; 64494 ×2; J2250; J1030; J3010; J2795

== ENCOUNTER → 2023-07-14 | Outpatient (CLI) | payer MEDICARE, OTHER ==
[2023-07-14 15:43] LABS: ALT 16 U/L (8-44); AST 14 U/L (13-35); Albumin 4.2 d/dL (3.8-4.9); Alkaline Phosphatase 74 U/L (41-126); BUN/Creat Ratio 17.33 Ratio (12.00-20.00); Blood Urea Nitrogen 10.4 mg/dL (9.0-27.0); Calcium 9.7 mg/dL (8.7-10.3); Carbon Dioxide 24.5 mmol/L (21.6-31.8); Chloride 104 mmol/L (96-109); Globulin 2.8 d/dL (1.6-3.3); Glucose 121 mg/dL (70-110); LDL Cholesterol,Calculated 110.9 mg/dL (0.0-131.0); Potassium 4.1 mmol/L (3.5-5.5); Sodium 142 mmol/L (135-145); Total Bilirubin 0.2 mg/dL (0.3-1.2)
== END | disposition home or self-care (01) ==
LOC: LABWHC1 09:37
PROVIDERS: ATTEND Internal Medicine Interventional Cardiology
DX: E78.2 Mixed hyperlipidemia (principal)
CPT/HCPCS: 36415; 80053; 80061

== ENCOUNTER → 2023-07-23 | Outpatient (CLI) | payer MEDICARE, OTHER ==
[2023-07-23 11:28] VITALS: BP 138/81; PULSE 70; RESP 15; TEMP 98.4
--- NOTE | 2023-07-27 07:48 | P.PAINPG ---
PQRS Measure Charge Sheet Comment: A 73 yr old female with a history of severe and chronic LBP x > 10 yrs secondary to lumbar DDD and spondylosis with facet arthropathy without myelopathy presents today for evaluation s/p BL MBB L3-L5 #1. Pt states she experienced 100% pain relief x 1 days s/p procedure. Pain level is provoked at 7/10 in intensity, constant, localized in the lumbar spine, burning in character without shooting pain Pain is provoked by weight bearing activities. Pain is alleviated with heat, ice, medications, Lidoderm patches, PT twice weekly x 4-5 wks in Nov 2021, massage therapy in Oct 2022 without relief, physician guided home exercises & stretches weekly since Oct 2022 without relief, use of a lumbar pillow, repositioning and rest. Oswestry axial pain score at 20. Interventional pain procedures completed include NIDA L5-S1 x1, BL MBB L3-L5 x1 Patient is currently on [place], Ibu Patient denies any side effects of the medication(s), denies excessive drowsiness or sleepiness, denies suicidal ideation and reports that the current pain medication is helping to control the pain and improve activities of daily living. Patient denies any motor or sensory deficits. Patient denies any fever or night sweats, denies any change in the bowel movements or urination. Physical Examination: -Constitutional: Cooperative. Not in acute distress . - Neurologic: Cranial nerve II to XII intact. No focal neurological deficits. - Psychatric: Alert & oriented x 3. Matching mood & appropriate affect. Judgment and insight intact. - Musculoskeletal: Cervical spine: Muscle bulk/ tone/ strength in the bilateral upper extremities normal Vertebral body tenderness to palpation over Spurling test positive Distraction test positive Facet loading test positive TTP Thoracic spine Muscle bulk / tone/ strength in the bilateral paraspinal muscles normal Vertebral body tender to palpation over Facet loading test positive TTP Lumbar spine: Motor bulk/ tone/ strength lower extremities , thigh and legs : 5/5 Deep tendon reflexes : Normal Knee Jerk. Normal Ankle Jerk . Vertebral body tenderness to palpation over L5 Segal Test positive Lumbar Facet Loading Test positive over BL L4-L5, L5-S1 Straight Leg Raise: positive at 30 degrees right side/ left side Gaenslen's Test positive Sacral spine : Severe tenderness over the Sacroiliac joint: right side / left side Range of motion: Flexion of the lumbar spine <60 degrees Range of motion: Extension of the lumbar spine <20 degrees Gaenslen's Test positive right side / left side Jose test: positive right side / left side Thigh Thrust Test positive right side / left side Sacral Thrust Test positive right side / left side Assessment and plan: Chronic LBP secondary to lumbar DDD, spondylosis with facet arthropathy without myelopathy Recommendation of BL facet blocks of the medial branches L4-L5, L5-S1 #2. May need a series of injections, up until RFA, for optimal pain relief. Risks, benefits of procedure discussed and pt verbalized understanding. Admits to anticoagulant use or medical history of diabetes. Protocol for discontinuation/ continuation of medications rogelio procedure discussed. Minimal anesthesia provided, if clinically indicated, consisting of Versed and Fentanyl. All questions answered. I have spent less than 30 minutes on patient care today. Dr Ibrahim was available by phone for the evaluation of this patient. The time was used to review the medical records including relevant urine studies and Prescription history (MAPs), review of the available imaging, evaluation and examination of the patient, coordination of care with the medical staff and if applicable referring physicians, as well as creation of the medical record PQRS Narrative: Smoking Status Current every day smoker Hx Alcohol Use (MH) Yes: Rare Home Medications: Ambulatory Orders Rosuvastatin [Crestor] 10 mg PO DAILY 01/23/22 ALPRAZolam [Xanax] 1 mg PO DAILY PRN 04/29/23 Budesonide/Glycopyr/Formoterol [Breztri Aerosphere Inhaler] 1 puff INHALATION BID 04/29/23 HYDROcodone/APAP 5-325MG [[place] 5-325] 1 tab PO Q12HR PRN 04/29/23 Metoprolol Succinate (ER) [Toprol Xl] 50 mg PO DAILY 04/29/23 Vitamin C (Unknown Dose) 1 tab PO DAILY 06/29/23 Vitamin D (Unknown Dose) 1 tab PO DAILY 06/29/23 Controlled Substance Measures - Controlled Substance Measures Is patient prescribed a controlled substance at discharge?: No
== END ==
LOC: PNWHC3 10:50
PROVIDERS: ATTEND Specialist
DX: M51.37 Other intervertebral disc degeneration, lumbosacral region (principal); M47.817 Spondylosis without myelopathy or radiculopathy, lumbosacral region; G89.29 Other chronic pain; F17.200 Nicotine dependence, unspecified, uncomplicated; Z91.040 Latex allergy status; Z91.041 Radiographic dye allergy status
CPT/HCPCS: 99211

== ENCOUNTER 2023-08-21 07:56 | Day surgery (SDC) | payer MEDICARE, OTHER ==
[2023-08-21] MEDS ORDERED: LACTATED RINGERS 1,000 ML IV SCH (08:12)
[2023-08-21] MEDS ORDERED: ROPIVACAINE 5MG/ML 20ML VIAL ONE (08:28)
[2023-08-21] MEDS ORDERED: methylPREDNISolone ACETATE 40 MG/ML 1 ML VIAL ONE (08:28)
[2023-08-21] MEDS ORDERED: fentaNYL (PF) 50 MCG/ML 2 ML AMP ONE (08:29)
[2023-08-21] MEDS ORDERED: MIDAZOLAM 2 MG/2 ML VIAL ONE (08:29)
[2023-08-21 08:31] VITALS: TEMP 97.2
--- NOTE | 2023-08-21 08:43 | P.PCN ---
Date of Procedure: 08/21/23 Procedure(s) Performed: PREOPERATIVE DIAGNOSIS : 1- Lumbar spondylosis with Facet Arthropathy without myelopathy . 2- Lumber degenerative disc disease POSTOPERATIVE DIAGNOSIS: 1- Lumbar spondylosis with Facet Arthropathy without myelopathy . 2- Lumber degenerative disc disease PROCEDURE: Diagnostic bilateral L3 , L4 , and L5 medial branch block under fluoroscopy guidance(fluoroscopy images available in the radiology Department ) ( To target the facet joint between Bilateral L4-5 , and L5-S1 )#2nd ANESTHESIA:, Monitored anesthesia care as per anesthesia department. EBL: Minimal COMPLICATION: None PROCEDURE INDICATION: Chronic low back pain secondary to Facet arthropathy unresponsive to conservative treatment. PROCEDURE DESCRIPTION: the patient was seen and identified in the preop holding area , risks and benefits and possible complications of the procedure and alternative were discussed with the patient, and the patient agreed to proceed with the procedure and signed the consent and vital signs monitored during the procedure and fluoroscopy was used to maximize the benefit and accuracy of the needle placement, and sedation was given to decrease patient anxiety, patient was taken to the procedure room and placed in prone position vital signs monitored in the back prepped with chlorhexidine X3 then under strict sterile technique using a right oblique fluoroscopy ,the junction of the transverse process and the superior articulating process of the right L3 , L4 , and L5 vertebra which corresponding to the fluoroscopy image of the eye of the Gerald dog on the block side for the medial branches and subsequently , after local infiltration of skin and subcu tissuies with Ropivacaine 0.5 % , one mL at each level ,then 22-gauge Quincke-type needles , 3 needle was used , each one of them placed at the junction of the base of the transverse process and the superior articular process at the appropriate level, and the needle was advanced until the periosteum contacted, needle placement confirmed with AP oblique and lateral view and after appropriate needle placement confirmed, and after negative aspiration for heme and CSF and there was no paresthesia 1-1/2 mL of Ropivacaine 0.5% mixed with 20 mg Depo-Medrol , then half mL injected at each level after negative aspiration the needle subsequently removed and the same procedure repeated for the left side at left side at L3 , L4 and L5 levels. At the end of the procedure and the needles removed and a bandage applied after the skin was cleaned the cleaning solution patient taken to recovery room in stable condition and monitors in the recovery room for 20-30 minutes and discharged home in stable condition after discharge criteria met and patient will follow up with the pain clinic in 2-4 weeks
[2023-08-21 08:59] VITALS: PULSE 62
--- NOTE | 2023-08-21 09:14 | FL ---
Intraoperative/procedural fluoroscopic services were provided. Total fluoroscopy time is 8.1 seconds with a total of 4 submitted images to PACS. Please see the operative/procedural note for further deta ils. DAP: 0.33230 mGym2
[2023-08-21 09:26] VITALS: BP 125/74; RESP 16
== END 2023-08-21 09:20 | disposition home or self-care (01) ==
LOC: ORPAIN 07:56
PROVIDERS: ATTEND Pain Medicine Interventional Pain Medicine
DX: M51.36 Other intervertebral disc degeneration, lumbar region (principal); M47.816 Spondylosis without myelopathy or radiculopathy, lumbar region; G89.29 Other chronic pain; K21.9 Gastro-esophageal reflux disease without esophagitis; F17.200 Nicotine dependence, unspecified, uncomplicated; Z91.040 Latex allergy status; Z91.041 Radiographic dye allergy status
CPT/HCPCS: 64493; 64494 ×2; J2250; J1030; J3010; J2795

== ENCOUNTER → 2023-08-31 | Outpatient (CLI) | payer MEDICARE, OTHER ==
--- NOTE | 2023-09-01 15:43 | MM ---
Reason for Exam: Screening (asymptomatic). Last mammogram was performed 1 year(s) and 4 month(s) ago. Patient History: Menarche at age 15. First Full-Term at age 18. Left ovary removed at age 26. Right ovary removed at age 26. Hysterectomy at age 26. Postmenopausal. Risk Values: Jalyn 5 year model risk: 1.2%. NCI Lifetime model risk: 2.9%. Prior Study Comparison: 11/25/2018 Bilateral Screening Mammogram, [facility]. 06/04/2020 Bilateral Screening Mammogram, [facility]. 05/06/2022 Bilateral MG 3D screening mammo w/cad, [facility]. Tissue Density: The breast tissue is heterogeneously dense. This may lower the sensitivity of mammography. Findings: Analyzed By CAD. Pattern appears symmetrical and stable. No significant interval change No suspicious groups of microcalcifications, spiculated or lobular masses, architectural distortion or other secondary signs of malignancy are mammographically apparent. Overall Assessment: Benign, BI-RAD 2 Management: Screening Mammogram of both breasts in 1 year. A negative mammogram report should not preclude additional follow up of suspicious palpable abnormalities. Patient should continue monthly self breast exam. A clinical breast exam by your physician is recommended on an annual basis and results should be correlated with mammographic findings. Electronically signed and approved by: Nacho Purvis D.O. Radiologis
== END | disposition home or self-care (01) ==
LOC: RADMAMWWP 06:54
PROVIDERS: ATTEND Family Medicine
DX: Z12.31 Encounter for screening mammogram for malignant neoplasm of breast (principal); Z78.0 Asymptomatic menopausal state
CPT/HCPCS: 77063; 77067

== ENCOUNTER → 2023-09-24 | Outpatient (CLI) | payer MEDICARE, OTHER ==
[2023-09-24 08:39] VITALS: BP 139/88; PULSE 70; RESP 16; TEMP 97.1
--- NOTE | 2023-09-24 13:24 | P.PAINPG ---
PQRS Measure Charge Sheet Comment: A 73 yr old female with a history of severe and chronic LBP x > 10 yrs secondary to lumbar DDD and spondylosis with facet arthropathy without myelopathy presents today for evaluation s/p BL MBB L3-L5 #2. Pt states she experienced 70% pain relief x 2 days s/p procedure. Pain level is provoked at 7/10 in intensity, constant, localized in the lumbar spine, burning in character without shooting pain Pain is provoked by weight bearing activities. Pain is alleviated with heat, ice, medications, Lidoderm patches, PT twice weekly x 4-5 wks in Nov 2021, massage therapy in Oct 2022 without relief, physician guided home exercises & stretches weekly since Oct 2022 without relief, use of a lumbar pillow, repositioning and rest. Oswestry axial pain score at 20. Interventional pain procedures completed include NIDA L5-S1 x1, BL MBB L3-L5 x2 Patient is currently on [place], Ibu Patient denies any side effects of the medication(s), denies excessive drowsiness or sleepiness, denies suicidal ideation and reports that the current pain medication is helping to control the pain and improve activities of daily living. Patient denies any motor or sensory deficits. Patient denies any fever or night sweats, denies any change in the bowel movements or urination. Physical Examination: -Constitutional: Cooperative. Not in acute distress . - Neurologic: Cranial nerve II to XII intact. No focal neurological deficits. - Psychatric: Alert & oriented x 3. Matching mood & appropriate affect. Judgment and insight intact. - Musculoskeletal: Cervical spine: Muscle bulk/ tone/ strength in the bilateral upper extremities normal Vertebral body tenderness to palpation over Spurling test positive Distraction test positive Facet loading test positive TTP Thoracic spine Muscle bulk / tone/ strength in the bilateral paraspinal muscles normal Vertebral body tender to palpation over Facet loading test positive TTP Lumbar spine: Motor bulk/ tone/ strength lower extremities , thigh and legs : 5/5 Deep tendon reflexes : Normal Knee Jerk. Normal Ankle Jerk . Vertebral body tenderness to palpation over L5 Segal Test positive Lumbar Facet Loading Test positive over BL L4-L5, L5-S1 Straight Leg Raise: positive at 30 degrees right side/ left side Gaenslen's Test positive Sacral spine : Severe tenderness over the Sacroiliac joint: right side / left side Range of motion: Flexion of the lumbar spine <60 degrees Range of motion: Extension of the lumbar spine <20 degrees Gaenslen's Test positive right side / left side Jose test: positive right side / left side Thigh Thrust Test positive right side / left side Sacral Thrust Test positive right side / left side Assessment and plan: Chronic LBP secondary to lumbar DDD, spondylosis with facet arthropathy without myelopathy Recommendation of referral to Dr Berg for possible SCS. Script provided for [facility] Clearance. Information provided. All questions a nswered. I have spent less than 30 minutes on patient care today. Dr Ibrahim was available by phone for the evaluation of this patient. The time was used to review the medical records including relevant urine studies and Prescription history (MAPs), review of the available imaging, evaluation and examination of the patient, coordination of care with the medical staff and if applicable referring physicians, as well as creation of the medical record PQRS Narrative: Smoking Status Current every day smoker Hx Alcohol Use (MH) Yes: Rare Home Medications: Ambulatory Orders Rosuvastatin [Crestor] 10 mg PO HS 01/23/22 ALPRAZolam [Xanax] 1 mg PO DAILY PRN 04/29/23 Budesonide/Glycopyr/Formoterol [Breztri Aerosphere Inhaler] 1 puff INHALATION BID 04/29/23 HYDROcodone/APAP 5-325MG [[place] 5-325] 1 tab PO Q12HR PRN 04/29/23 Metoprolol Succinate (ER) [Toprol Xl] 50 mg PO HS 04/29/23 Vitamin C (Unknown Dose) 1 tab PO DAILY 06/29/23 Vitamin D (Unknown Dose) 1 tab PO DAILY 06/29/23 Controlled Substance Measures - Controlled Substance Measures Is patient prescribed a controlled substance at discharge?: No
== END ==
LOC: PNWHC3 07:55
PROVIDERS: ATTEND Specialist
DX: M47.817 Spondylosis without myelopathy or radiculopathy, lumbosacral region (principal); M51.37 Other intervertebral disc degeneration, lumbosacral region; G89.29 Other chronic pain; F17.200 Nicotine dependence, unspecified, uncomplicated; Z88.1 Allergy status to other antibiotic agents; Z91.040 Latex allergy status
CPT/HCPCS: 99211

== ENCOUNTER → 2024-01-18 | Outpatient (CLI) | payer MEDICARE, OTHER ==
--- NOTE | 2024-01-18 11:31 | XR ---
EXAMINATION TYPE: XR KUB DATE OF EXAM: 01/18/2024 COMPARISON: None INDICATION: Right-sided abdominal pain, hematuria TECHNIQUE: Single view abdomen FINDINGS: There is a normal bowel gas pattern. Psoas margins are normal. No organomegaly is present. No suspicious renal or ureteral calcifications identified. Small phleboliths. BE within the pelvis. IMPRESSION: 1. Unremarkable Abdomen
== END | disposition home or self-care (01) ==
LOC: RADXRMAIN 10:57
PROVIDERS: ATTEND Urology
DX: N20.0 Calculus of kidney (principal); R31.9 Hematuria, unspecified; R10.9 Unspecified abdominal pain
CPT/HCPCS: 74018

== ENCOUNTER → 2024-02-25 | Outpatient (CLI) | payer MEDICARE, OTHER ==
--- NOTE | 2024-02-25 16:54 | CT ---
EXAMINATION TYPE: CT abdomen pelvis wo con DATE OF EXAM: 02/25/2024 COMPARISON: 10/21/2022 HISTORY: 73-year-old female R10.84, Generalized Abdominal pain and blood in stool x3days. CT DLP: 457.7 mGycm. Automated exposure control for dose reduction was used. TECHNIQUE: Contiguous axial scanning of the abdomen and pelvis without IV contrast. Coronal and sagit pino reconstructions performed. FINDINGS: Heart normal size without pericardial effusion. Lung bases clear without pleural effusion. A few scattered hepatic cysts are redemonstrated measuring up to 3.5 cm. Gallbladder surgically absen t. Mild thickening of the left adrenal gland without discrete nodularity. Right adrenal gland, kidneys, spleen, and pancreas within normal limits. Moderate atherosclerotic calcifications abdominal aorta and iliac arteries. From ectasia up to 2.9 cm of the infrarenal abdominal aorta is relatively similar. No dilated small bowel, free fluid, or free air. No mesenteric or retroperitoneal lymphadenopathy. Suspect a normal appendix in the right lower quadrant. Mild stool burden. There is some short segment focal moderate circumferential wall thickening with mild pericolonic fat stranding along the upper d escending colon, axial image 38. Unclear if this corresponds to a focal area of peristalsis. Moderate pericolonic inflammatory change. Bladder is collapsed. Mild pelvic floor relaxation. Uterus surgically absent. Both ovaries are visual ized. Multiple pelvic phleboliths. No abnormal fluid collection in the pelvis or pelvic lymphadenopat hy. Bones: Moderate degenerative disc disease L5-S1. Facet arthropathy lumbar spine. IMPRESSION: Short segment moderate circumferential wall thickening at the upper descending colon. While this may represent focal peristalsis, a short segment nonspecific colitis versus neoplasm are in the different ial. Correlate with clinical impression and consider direct visualization.
== END | disposition home or self-care (01) ==
LOC: RADCTMAIN 15:56
PROVIDERS: ATTEND Family Medicine
DX: R10.84 Generalized abdominal pain (principal); K57.92 Diverticulitis of intestine, part unspecified, without perforation or abscess without bleeding
CPT/HCPCS: 74176

== ENCOUNTER 2024-03-31 19:54 | Emergency (ER) | payer MEDICARE, OTHER ==
--- NOTE | 2024-03-31 21:06 | ED ---
General Adult HPI - General Chief complaint: Wound/Laceration Stated complaint: Fall, Knee Injury Time Seen by Provider: 03/31/24 20:10 Source: patient, EMS, RN notes reviewed Mode of arrival: EMS Limitations: no limitations - History of Present Illness Initial comments: This is a 73-year-old female presents the emergency department accompanied by her via EMS for chief complaint of a fall. Patient states that she was on her deck when she excellently slipped landing on her right knee. Patient denies hitting her head or loss of conscious at the time of fall. Patient denies presyncopal symptoms states that she lost her footing resulting in a fall. Patient is denying chest pain, chest pressure, dyspnea, headaches. Patient is able to ambulate however has pain of the right knee. Is unaware when her last tetanus vaccination was. - Related Data Home Medications Medication Instructions Recorded Confirmed Rosuvastatin [Crestor] 10 mg PO HS 01/23/22 09/24/23 ALPRAZolam [Xanax] 1 mg PO DAILY PRN 04/29/23 09/24/23 Budesonide/Glycopyr/Formoterol 1 puff INHALATION BID 04/29/23 09/24/23 [Breztri Aerosphere Inhaler] HYDROcodone/APAP 5-325MG [[place] 1 tab PO Q12HR PRN 04/29/23 09/24/23 5-325] Metoprolol Succinate (ER) [Toprol 50 mg PO HS 04/29/23 09/24/23 Xl] Vitamin C (Unknown Dose) 1 tab PO DAILY 06/29/23 09/24/23 Vitamin D (Unknown Dose) 1 tab PO DAILY 06/29/23 09/24/23 Allergies Allergy/AdvReac Type Severity Reaction Status Date / Time Iodinated Contrast Media Allergy Swelling, Verified 03/31/24 20:11 [Iodinated Contrast Media - "welts" IV Dye] Latex, Natural Rubber Allergy Rash/Hives Verified 03/31/24 20:11 Review of Systems ROS Statement: Those systems with pertinent positive or pertinent negative responses have been documented in the HPI. ROS Other: All systems not noted in ROS Statement are negative. Past Medical History Past Medical History: Hyperlipidemia, Hypertension, Osteoarthritis (OA) Additional Past Medical History / Comment(s): Kidney Stones. HX SURG for menorrhagia, fibroids, chronic back pain. covid 07/2020, AAA- diagnosed 05/2023 History of Any Multi-Drug Resistant Organisms: None Reported Past Surgical History: Cholecystectomy, Hysterectomy, Orthopedic Surgery Additional Past Surgical History / Comment(s): ORIF left arm - 2 PLATES.,ORIF rt foot,bossman cataracts, pain clinic procedure Past Anesthesia/Blood Transfusion Reactions: No Reported Reaction Past Psychological History: Anxiety Smoking Status: Former smoker Past Alcohol Use History: Rare Past Drug Use History: None Reported - Past Family History Mother Family Medical History: Coronary Artery Disease (CAD), Myocardial Infarction ([place]) General Exam Limitations: no limitations General appearance: alert, in no apparent distress Head exam: Present: atraumatic, normocephalic, normal inspection Eye exam: Present: normal appearance, PERRL, EOMI. Absent: scleral icterus, conjunctival injection, periorbital swelling ENT exam: Present: normal exam, mucous membranes moist Respiratory exam: Present: normal lung sounds bilaterally. Absent: respiratory distress, wheezes, rales, rhonchi, stridor Cardiovascular Exam: Present: regular rate, normal rhythm, normal heart sounds. Absent: systolic murmur, diastolic murmur, rubs, gallop, clicks GI/Abdominal exam: Present: soft, normal bowel sounds. Absent: distended, tenderness, guarding, rebound, rigid Left Elbow exam: Present: full ROM, laceration Right Knee exam: Present: tenderness, swelling, laceration (4 cm), ecchymosis, deformity. Absent: crepitus, dislocation, erythema, effusion Gait: observed and limited by pain Back exam: Present: normal inspection Skin exam: Present: warm, dry, intact, normal color. Absent: rash Course Vital Signs 03/31/24 03/31/24 03/31/24 20:03 21:25 23:25 Temperature 98.6 F 98.4 F Pulse Rate 85 70 68 Respiratory 20 22 18 Rate Blood Pressure 151/83 162/75 140/75 O2 Sat by Pulse 98 99 99 Oximetry Procedures - Laceration Laceration #1 Consent Obtained: verbal consent Indication: laceration Site: lower extremity (Right knee) Size (cm): 4 Description: flap, avulsion Depth: simple, single layer Anesthetic Used: lidocaine 1% Anesthesia Technique: local infiltration Amount (mls): 4 Pre-repair: wound explored, irrigated extensively Type of Sutures: nylon Size of Sutures: 3-0 Number of Sutures: 8 Technique: simple, interrupted Patient Tolerated Procedure: well, no complications Medical Decision Making - Medical Decision Making Was pt. sent in by a medical professional or institution (AMY Ortiz, DEVELOPMENT EXECUTIVE, urgent care, hospital, or senior care...) When possible be specific @ -No Did you speak to anyone other than the patient for history (EMS, parent, family, police, friend...)? What history was obtained from this source @ -No Did you review nursing and triage notes (agree or disagree)? Why? @ -I reviewed and agree with nursing and triage notes Were old charts reviewed (outside hosp., previous admission, EMS record, old EKG, old radiological studies, urgent care reports/EKG's, senior care records)? Report findings @ -No old charts were reviewed Differential Diagnosis (chest pain, altered mental status, abdominal pain women, abdominal pain men, vaginal bleeding, weakness, fever, dyspnea, syncope, headache, dizziness, GI bleed, back pain, seizure, CVA, palpatations, mental health, musculoskeletal)? @ -fall, laceration, skin avulsion, fracture, this list is not all inclusive. EKG interpreted by me (3pts min.). @ -None X-rays interpreted by me (1pt min.). @ -xray of the right knee reveals no acute osseous abnormality, soft tissue swelling of the anterior medial right knee. CT interpreted by me (1pt min.). @ -None done U/S interpreted by me (1pt. min.). @ -None done What testing was considered but not performed or refused? (CT, X-rays, U/S, labs)? Why? @ -None What meds were considered but not given or refused? Why? @ -None Did you discuss the management of the patient with other professionals (eric connolly i.e. AMY Ortiz, DEVELOPMENT EXECUTIVE, lab, RT, psych nurse, psychosocial rehabilitation counselor, sawyer helper, teacher, chief customer officer, casey saw operator)? Give summary @ -No Was smoking cessation discussed for >3mins.? @ -No Was critical care preformed (if so, how long)? @ -No Were there social determinants of health that impacted care today? How? (Homelessness, low income, unemployed, alcoholism, drug addiction, transportation, low edu. Level, literacy, decrease access to med. care, prison, rehab)? @ -No Was there de-escalation of care discussed even if they declined (Discuss DNR or withdrawal of care, Hospice)? DNR status @ -No What co-morbidities impacted this encounter? (DM, HTN, Smoking, COPD, CAD, Cancer, CVA, ARF, Chemo, Hep., AIDS, mental health diagnosis, sleep apnea, morbid obesity)? @ -None Was patient admitted / discharged? Hospital course, mention meds given and route, prescriptions, significant lab abnormalities, going to OR and other pertinent info. @ -Discharge. 73-year-old female with a fall. On examination patient noted to have a laceration to her right medial knee. Pulses intact a no neurovascular deficits noted. Patient will be evaluated via x-ray for potential fracture and provided with a dose of tetanus vaccine. X-ray no acute findings. Knee was thoroughly irrigated with sterile water and Betadine solution. 1% lidocaine was used to numb the area and 8 simple interrupted sutures were placed with 3-0 nylon. Steri-Strips were also applied to the lateral skin avulsion due to area not being amenable to suture repair. Recommend the patient follows up with her primary care provider return to the emergency department in 10 to 12 days for suture removal. The patient continue to ice the knee, rest, elevate and use compression to aid in pain relief and swelling and ecchymosis. All questions answered at bedside and strict return parameters discussed with the patient she is verbalized understanding. Case discussed with Dr. Ríos Undiagnosed new problem with uncertain prognosis? @ -No Drug Therapy requiring intensive monitoring for toxicity (Heparin, Nitro, Insulin, Cardizem)? @ -No Were any procedures done? @ -Wound irrigation, suture repair Diagnosis/symptom? @ -Laceration, contusion, fall Acute, or Chronic, or Acute on Chronic? @ -Acute Uncomplicated (without systemic symptoms) or Complicated (systemic symptoms)? @ -uncomplicated Side effects of treatment? @ -No Exacerbation, Progression, or Severe Exacerbation? @ -No Poses a threat to life or bodily function? How? (Chest pain, [place], SD, pneumonia, PE, COPD, DKA, ARF, appy, cholecystitis, CVA, Diverticulitis, Homicidal, Suicidal, threat to staff... and all critical care pts) @ -No Disposition Clinical Impression: Laceration Disposition: HOME SELF-CARE Condition: Good Instructions (If sedation given, give patient instructions): Care For Your Stitches (ED) Additional Instructions: Return to the emergency department if your symptoms worsen or not improve. Return to the emergency department or to your primary care provider 7 to 10 days for suture removal. Is patient prescribed a controlled substance at d/c from ED?: No Referrals: Ken Valdez MD [Primary Care Provider] - 1-2 days Time of Disposition: 22:31
[2024-03-31] MEDS: HYDROmorphone 1 MG/ML 1 ML SYRINGE IM STA (21:24)
--- NOTE | 2024-03-31 21:25 | XR ---
EXAMINATION TYPE: XR knee 4V RT DATE OF EXAM: 03/31/2024 COMPARISON: 12/27/2014 HISTORY: Fall, injury TECHNIQUE: 3 view right knee supplemented with a patellar sunrise view FINDINGS: No acute fractures are evident. Joint spaces are preserved calcifications within the menisc i. Posterior-superior and posterior-inferior patellar spurring is present. No joint effusion is evide nt. There may be some soft tissue swelling in the joint space along the anterior medial right knee. Follow up exams can be performed 7-10 days from acute trauma for continued pain IMPRESSION: 1. No acute osseous abnormality right knee. 2. Soft tissue swelling anterior medial right knee
[2024-03-31] MEDS: DIPH,PERTUS(ACELL)TETVAC-LF 0.5 ML VIAL IM ONE (23:18)
[2024-03-31] MEDS: LIDOCAINE 1% INJ 10MG/ML (20 ML MDV) SQ ONE (23:19)
[2024-03-31 23:26] VITALS: BP 140/75; PULSE 68; RESP 18; TEMP 98.4
== END 2024-03-31 23:27 | disposition home or self-care (01) ==
LOC: EC 19:54
DX: S81.011A Laceration without foreign body, right knee, initial encounter (principal); Z87.891 Personal history of nicotine dependence; Z91.040 Latex allergy status; Z91.041 Radiographic dye allergy status; Z23 Encounter for immunization; W01.0XXA Fall on same level from slipping, tripping and stumbling without subsequent striking against object, initial encounter
CPT/HCPCS: 73564; 90715; 99284; 90471; 96372; 12002; J2001; J1170

== ENCOUNTER 2024-04-02 15:00 | Emergency (ER) | payer MEDICARE, OTHER ==
[2024-04-02 15:05] VITALS: BP 118/68; PULSE 84; RESP 18; TEMP 97.8
--- NOTE | 2024-04-02 15:48 | ED ---
Recheck HPI - General Chief Complaint: Recheck/Abnormal Lab/Rx Stated Complaint: Recheck stitches Time Seen by Provider: 04/02/24 15:12 Source: patient Mode of arrival: ambulatory Limitations: no limitations - History of Present Illness Initial Comments: Patient is a pleasant 73-year-old female presenting today for bleeding from a wound sustained approximately 3 days ago. Patient states that she was walking down her porch steps when she fell down 2 steps sustaining a slats laceration to the right knee. She has been able to ambulate since the injury. Received sutures on the day of injury. States that she has gone through 4 bandages due to bleeding through the bandage over the last 3 days. Mild erythema around wound, no discharge, no purulence. Patient continues to able to range her knee through full range of motion and bear weight without difficulty. Denies fevers, chills, nausea, vomiting, diarrhea. Patient is not on blood thinners. - Related Data Home Medications Medication Instructions Recorded Confirmed Rosuvastatin [Crestor] 10 mg PO HS 01/23/22 09/24/23 ALPRAZolam [Xanax] 1 mg PO DAILY PRN 04/29/23 09/24/23 Budesonide/Glycopyr/Formoterol 1 puff INHALATION BID 04/29/23 09/24/23 [Breztri Aerosphere Inhaler] HYDROcodone/APAP 5-325MG [[place] 1 tab PO Q12HR PRN 04/29/23 09/24/23 5-325] Metoprolol Succinate (ER) [Toprol 50 mg PO HS 04/29/23 09/24/23 Xl] Vitamin C (Unknown Dose) 1 tab PO DAILY 06/29/23 09/24/23 Vitamin D (Unknown Dose) 1 tab PO DAILY 06/29/23 09/24/23 Previous Rx's Medication Instructions Recorded Cephalexin [Keflex] 500 mg PO Q6HR 7 Days #28 cap 04/02/24 Allergies Allergy/AdvReac Type Severity Reaction Status Date / Time Iodinated Contrast Media Allergy Swelling, Verified 04/02/24 15:05 [Iodinated Contrast Media - "welts" IV Dye] Latex, Natural Rubber Allergy Rash/Hives Verified 04/02/24 15:05 Review of Systems ROS Statement: Those systems with pertinent positive or pertinent negative responses have been documented in the HPI. Past Medical History Past Medical History: Hyperlipidemia, Hypertension, Osteoarthritis (OA) Additional Past Medical History / Comment(s): Kidney Stones. HX SURG for menorrhagia, fibroids, chronic back pain. covid 07/2020, AAA- diagnosed 05/2023 History of Any Multi-Drug Resistant Organisms: None Reported Past Surgical History: Cholecystectomy, Hysterectomy, Orthopedic Surgery Additional Past Surgical History / Comment(s): ORIF left arm - 2 PLATES.,ORIF rt foot,bossman cataracts, pain clinic procedure Past Anesthesia/Blood Transfusion Reactions: No Reported Reaction Past Psychological History: Anxiety Smoking Status: Former smoker Past Alcohol Use History: Rare Past Drug Use History: None Reported - Past Family History Mother Family Medical History: Coronary Artery Disease (CAD), Myocardial Infarction ([place]) General Exam - General Exam Comments Initial Comments: PE: CONSTITUTIONAL: no apparent distress, well appearing SKIN: warm, dry, no jaundice, hives or petechiae. 2-3 cm stellate laceration to right knee, sutures intact, no discharge, abrasion/small skin tear near lateral aspect of wound, weeps a few small drops of blood when pressure applied, bleeding controlled, no purulent discharge present, mild erythema immediately around wound, does not extend down leg or around joint EYES: pupils are equally round, extraocular movements intact without nystagmus, clear conjunctiva, non-icteric sclera HENT: normocephalic, atraumatic, moist mucus membranes, oropharynx clear without exudates PULMONARY: clear to auscultation without wheezes, rhonchi, or rales, normal excursion, no accessory muscle use and no stridor CARDIOVASCULAR: regular rate, rhythm, normal S1 and S2. No appreciated murmurs. Strong radial pulses with intact distal perfusion LYMPHATICS: no edema in lower extremities MUSCULOSKELETAL: Right knee is slightly TTP right on top of incision site, otherwise joint space/ bony prominences nontender, no gross defomrity, no joint swelling, patient able to move her right knee through full ROM without motor or neuro deficit NEUROLOGIC: _a/o x 3, GCS 15, normal mentation and speech. Moves all extremities x 4 without motor or sensory deficit PSYCHIATRIC: _normal mood and affect, thought process is clear and linear Limitations: no limitations Course Vital Signs 04/02/24 15:02 Temperature 97.8 F Pulse Rate 84 Respiratory 18 Rate Blood Pressure 118/68 O2 Sat by Pulse 98 Oximetry Medical Decision Making - Medical Decision Making Was pt. sent in by a medical professional or institution (AMY Ortiz, LEAD WEB APPLICATION DEVELOPER, urgent care, hospital, or retirement...) When possible be specific @ -No Did you speak to anyone other than the patient for history (EMS, parent, family, police, friend...)? What history was obtained from this source @ -No Did you review nursing and triage notes (agree or disagree)? Why? @ -I reviewed and agree with nursing and triage notes Were old charts reviewed (outside hosp., previous admission, EMS record, old EKG, old radiological studies, urgent care reports/EKG's, retirement records)? Report findings @ -X-ray obtained on 03/31/2024 showed no fracture Differential Diagnosis (chest pain, altered mental status, abdominal pain women, abdominal pain men, vaginal bleeding, weakness, fever, dyspnea, syncope, headache, dizziness, GI bleed, back pain, seizure, CVA, palpatations, mental health, musculoskeletal)? @ -Diagnosis remains broad however top considerations include poor wound healing, cellulitis, complicated laceration preventing adequate skin closure What testing was considered but not performed or refused? (CT, X-rays, U/S, labs)? Why? @ -None What meds were considered but not given or refused? Why? @ -None Did you discuss the management of the patient with other professionals (professionals i.e. AMY Ortiz, LEAD WEB APPLICATION DEVELOPER, lab, RT, psych nurse, protective services social worker, client technical specialist, teacher, eeo officer, trimming caser)? Give summary @ -No Was smoking cessation discussed for >3mins.? @ -No Was critical care preformed (if so, how long)? @ -No Were there social determinants of health that impacted care today? How? (Homelessness, low income, unemployed, alcoholism, drug addiction, transportation, low edu. Level, literacy, decrease access to med. care, residential, rehab)? @ -No Was there de-escalation of care discussed even if they declined (Discuss DNR or withdrawal of care, Hospice)? DNR status @ -No What co-morbidities impacted this encounter? (DM, HTN, Smoking, COPD, CAD, Cancer, CVA, ARF, Chemo, Hep., AIDS, mental health diagnosis, sleep apnea, morbid obesity)? @ -None Was patient admitted / discharged? Hospital course, mention meds given and route, prescriptions, significant lab abnormalities, going to OR and other pertinent info. @ -Hospital course Patient evaluated in hallway cot. Resting comfortably on evaluation. Bandage clean dry and intact. Bandages removed, showed well-healing stellate laceration of the right knee. Mild surrounding erythema that does not extend around the joint. Joint is not hot red or swollen. Patient able to range through full ROM without difficulty. Joint does not appear to be affected. There is a small mount of granulation tissue and skin tear with few drops of blood expressed when pressure applied. Laceration is well repaired without gaping. Appears bleeding may be coming from torn skin. Wound irrigated thoroughly with sterile water. Gel foam applied and clean dry dressing reapplied. Discussed with patient plan to refrain from excessive amounts of activity/weightbearing activities on her leg to prevent further irritation of wound. Patient will be prescribed cephalexin to prevent cellulitis, there is mild erythema around wound, does not appear inf ected however as wound is overlying joint and there is mild erythema developing, cephalexin prescribed. Patient and I discussed signs symptoms warranting return to the emergency department. We discussed methods for pain control including icing and elevated her affected extremity, Tylenol and ibuprofen as needed for pain. Patient comfortable and agreeable with plan. In my medical judgment there is currently no evidence of an immediate life- threatening or surgical condition. Discharge is therefore indicated at this time. Discharge treatment instructions, follow up instructions, and appropriate emergency department return precautions were discussed with the patient and/or medical decision maker. Patient and/or medical decision maker expressed understanding of and agreed with the treatment plan, follow up instructions, and emergency department return precaution. All patient's and/or medical decision maker's questions were answered. The patient was advised that a small risk still exists that a serious condition could develop and was therefore instructed to return to the ED for any changes in symptoms, persistent symptoms, inability to obtain proper follow-up or for any further concerns. Patient received verbal and written instructions for this condition. Diagnosis/symptom? @ -Wound recheck Acute, or Chronic, or Acute on Chronic? @ -Acute Uncomplicated (without systemic symptoms) or Complicated (systemic symptoms)? @ -Located Side effects of treatment? @ -No Exacerbation, Progression, or Severe Exacerbation? @ -No Disposition Clinical Impression: Visit for wound check Disposition: HOME SELF-CARE Condition: Good Instructions (If sedation given, give patient instructions): Care For Your Stitches (ED) Additional Instructions: Every disease is a spectrum and a small chance still exists that a serious condition could develop, for this reason, please monitor yourself closely for new, changing or worsening symptoms, symptoms that persist beyond 48 hours, worsening redness, swelling, discharge from your wound, swelling around your knee, inability to walk or bend your knee due to pain and/or swelling, risk, chills, bleeding that soaks your bandage, inability to tolerate/keep down fluids or your medications, inability to follow up with outpatient providers as instructed and should you experience these symptoms or should you have any further concerns for your wellbeing please return to the ED or call 911 immediately. PLEASE call your primary care physician as soon as possible to arrange / discuss plan for followup appointment. Appointment in the next 1-3 days is strongly encouraged if possible. PLEASE let us know here before you leave if there is anything further we can do to be of any assistance. Take care and feel Better! Prescriptions: Cephalexin [Keflex] 500 mg PO Q6HR 7 Days #28 cap Is patient prescribed a controlled substance at d/c from ED?: No Referrals: Ken Valdez MD [Primary Care Provider] - 1-2 days
== END 2024-04-02 16:00 | disposition home or self-care (01) ==
LOC: EC 15:00
DX: S81.011A Laceration without foreign body, right knee, initial encounter (principal); Z91.040 Latex allergy status; Z91.041 Radiographic dye allergy status; Z86.16 Personal history of COVID-19; Z87.891 Personal history of nicotine dependence; W10.9XXA Fall (on) (from) unspecified stairs and steps, initial encounter; Y93.01 Activity, walking, marching and hiking
CPT/HCPCS: 99282

== ENCOUNTER → 2024-07-01 | Outpatient (CLI) | payer MEDICARE, OTHER ==
[2024-07-01 18:31] LABS: ALT 18 U/L (8-44); AST 18 U/L (13-35); Albumin 4.1 g/dL (3.8-4.9); Albumin/Globulin Ratio 1.58 Ratio (1.60-3.17); Alkaline Phosphatase 84 U/L (41-126); BUN/Creat Ratio 11.86 Ratio (12.00-20.00); Blood Urea Nitrogen 8.3 mg/dL (9.0-27.0); Calcium 9.1 mg/dL (8.7-10.3); Carbon Dioxide 24.7 mmol/L (21.6-31.8); Chloride 109 mmol/L (96-109); Chol/HDL Ratio 4.02 Ratio; Globulin 2.6 g/dL (1.6-3.3); Glucose 95 mg/dL (70-110); LDL Cholesterol,Calculated 80.3 mg/dL (0.0-131.0); Potassium 4.2 mmol/L (3.5-5.5); Sodium 143 mmol/L (135-145); Total Bilirubin <0.2 mg/dL (0.3-1.2); Total Protein 6.7 g/dL (6.2-8.2)
== END | disposition home or self-care (01) ==
LOC: LABWHC1 12:30
PROVIDERS: ATTEND Internal Medicine Interventional Cardiology
DX: E78.2 Mixed hyperlipidemia (principal)
CPT/HCPCS: 36415; 80053; 80061

== ENCOUNTER 2024-07-08 05:47 | Day surgery (SDC) | payer MEDICARE, OTHER ==
[2024-07-08] MEDS: IV FLUID CONTINUATION 1,000 ML IV ONE (06:37)
[2024-07-08] MEDS: LACTATED RINGERS 1,000 ML IV SCH (06:37)
[2024-07-08] MEDS: DEXAMETHASONE SOD PHOSPHATE 4 MG/ML 1 ML VIAL IV ONE (06:58)
[2024-07-08] MEDS: ONDANSETRON 4 MG/2 ML VIAL IVP ONE (06:59)
[2024-07-08] MEDS ORDERED: HYDROmorphone 0.5 MG/0.5 ML SYRINGE IVP PRN (07:00)
[2024-07-08] MEDS: MIDAZOLAM 2 MG/2 ML VIAL IV PRN (07:01)
[2024-07-08] MEDS ORDERED: MIDAZOLAM 2 MG/2 ML VIAL ONE (07:26)
[2024-07-08] MEDS ORDERED: DEXAMETHASONE SOD PHOSPHATE 4 MG/ML 1 ML VIAL ONE (07:26)
[2024-07-08] MEDS ORDERED: ROPIVACAINE 5 MG/ML 30 ML VIAL ONE (07:26)
[2024-07-08] MEDS ORDERED: fentaNYL (PF) 50 MCG/ML 2 ML AMP ONE (07:26)
[2024-07-08] MEDS ORDERED: LIDOCAINE 1% INJ 10MG/ML (20 ML MDV) ONE (07:26)
[2024-07-08] MEDS ORDERED: PROPOFOL 10 MG/ML 20 ML VIAL IV ONE (07:26)
[2024-07-08] MEDS: ceFAZolin 1,000 MG in SODIUM CHLORIDE 0.9% 1,000 ML IRRIGATION ONE (08:16)
[2024-07-08 09:30] VITALS: TEMP 97
[2024-07-08 09:38] VITALS: RESP 16
--- NOTE | 2024-07-08 09:46 | P.OP ---
Date of Procedure: 07/08/24 Preoperative Diagnosis: 1. Hallux rigidus right foot 2. 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 Retained hardware right foot Postoperative Diagnosis: 1. Same 2. Same 3. Same Procedure(s) Performed: 1. First metatarsal phalangeal joint arthrodesis right foot 2. Removal deep hardware right foot Implants: Arthrex Max force reconstruction plate Bone allograft Anesthesia: GETA Surgeon: Greg Abdalla Estimated Blood Loss (ml): 90 Pathology: none sent Condition: stable Disposition: PACU Description of Procedure: Prior to the patient being brought to the operating room, anesthesia administered a nerve block on the surgical extremity. Then the patient was brought into the operating room and placed on table in the supine position. Timeout was taken to confirm correct patient identifiers, correct lateral surgery, and correct procedure. Once the staff in the room were in agreement with the timeout, the patient was induced and placed under general anesthesia. A well-padded tourniquet was placed on the ankle and then the foot was prepped and draped in the usual manner. attention was first directed to the anterior medial aspect of the distal tibia, just proximal to the ankle joint. A small stab incision was made and bluntly dissected down to level the tibia. A Jamshidi needle was then used to penetrate the cortex of the tibia. The cannula was advanced into medullary canal and the trocar was removed. 30 mL syringes that were prepped on the back table the appropriate anticoagulants, were placed on the cannula and the marrow aspirate removed. This is done twice for a total of 60 mL of aspirate. This was passed off the field and taken to be centered fusion down to a concentrated marrow aspirate.The foot was exsanguinated and the tourniquet inflated to 250 mmHg. Attention was directed over the dorsal aspect of the first metatarsal phalangeal joint, where a linear incision was made between the long extensor tendon and the neurovascular structures. The incision was deepened down to the subcutaneous layer careful to identify, avoid, and retract any neurovascular structures and cauterize any bleeding vessels. Blunt dissection was continued through the subcutaneous layer down to the periosteum and capsule. A linear periosteal and capsular incision was made medial to the long extensor tendon. Those tissues were then sharply reflected off of the first metatarsal head and shaft as well as the base of the proximal phalanx. the previous plate and screws were all fully exposed. All screws were removed intact without complication. The plate was then freed from the soft tissue and removed.The soft tissue was released around the joint so that the joint could be mobilized and accessed. due to the fact that this was a revision arthrodesis, the joint was not able to be distracted to use the conical reamers. Therefore a 4 mm joint proper was utilized to resect any non-healthy bone from between the arthrodesis segments. This was done until bleeding medullary bone was exposed both of the metatarsal as well as the proximal phalanx. Fluoroscopic imaging was utilized to make sure there was flat planes and even bony contact throughout the arthrodesis site. Once that was achieved, a 2 mm drill bit was used to aggressively fenestrate the conjoining surfaces of the arthrodesis site. Then the area was thoroughly irrigated with antibiotic saline. At this point the bone marrow concentrate was completed and brought to the surgical field. This was mixed with morselized cancellus bone chips to an appropriate consistency. Then this was placed between the arthrodesis segments. An Arthrex MaxForce to first metatarsal phalangeal joint arthrodesis plate was then positioned over the arthrodesis site. Was a realigned position until appropriate under fluoroscopy. Then it was temporarily fixated. Locking screws were placed in the distal holes of the plate into the proximal phalanx. The drill hole for the compression device was made through the proximal portion of the plate in the correct area. A guidewire was then placed across the joint to maintain the position during compression. The compression device was inserted and utilized to fully compressed the joint. Then the plate was temporarily fixated in its compressed position. Fluoroscopy confirmed that the joint was fully compressed. A nonlocking screw was placed to the compression slot of the proximal portion of the plate. This allowed for further compression across the arthrodesis site. 2 additional locking screws were placed in the most proximal holes of the plate. Final fluoroscopic imaging showed good bony contact and compression at the arthrodesis site. All hardware was properly positioned. All temporary fixation was removed and the wound is irrigated thoroughly with antibiotic saline. The capsule and periosteal tissues were closed with 2-0 Vicryl. Subcu closure was done with 4-0 Monocryl. And skin closure was done with 4-0 Stratafix in a running subcuticular manner. Dermal glue was placed around the incision, and once dried, Steri-Strips are placed across incision. An Arthrex jumpstart dressing was placed directly over the incision and then a dry sterile dressings applied to the right foot. The tourniquet was released and capillary refill return to all digits on the foot. The patient was then placed in a well-padded, well molded plaster posterior mold/sugar tong splint. The ankle was held in neutral position until the splint was dried. Then anesthesia was reversed and the patient was taken recovery with vital signs stable.
[2024-07-08 10:08] VITALS: PULSE 68
--- NOTE | 2024-07-08 10:33 | P.ANPRN ---
Procedure Note - Anesthesia - Nerve Block Performed Right Adductor Canal Single Time Out Performed: Yes Date of Procedure: 07/08/24 Procedure Start Time: 07:12 Location of Patient: PreOp Indication: Acute Post-Operative Pain, Requested by Surgeon Sedation Type: Sedate with meaningful contact maintained Preparation: Sterile Prep Position: Supine Needle Types: Pajunk Needle Gauge: 21 Ultrasound used to visualize needle placement: Yes Ultrasound used to observe medication spread: Yes Blood Aspirated: No Pain Paresthesia on Injection Noted: No Resistance on Injection: Normal Image Stored and Saved: Yes Events: Uneventful and Well Tolerated (Ropivacaine 0.5% 20 cc plus dexamethasone 4 mg)
--- NOTE | 2024-07-08 10:34 | P.ANPRN ---
Procedure Note - Anesthesia - Nerve Block Performed Right Popliteal Single Time Out Performed: Yes Date of Procedure: 07/08/24 Procedure Start Time: 07:13 Procedure Stop Time: 07:16 Location of Patient: PreOp Indication: Acute Post-Operative Pain, Requested by Surgeon Sedation Type: Sedate with meaningful contact maintained Preparation: Sterile Prep Position: Left Lateral Needle Types: Pajunk Needle Gauge: 21 Ultrasound used to visualize needle placement: Yes Ultrasound used to observe medication spread: Yes Blood Aspirated: No Pain Paresthesia on Injection Noted: No Resistance on Injection: Normal Image Stored and Saved: Yes Events: Uneventful and Well Tolerated (Ropivacaine 0.5% 20 cc plus dexamethasone 4 mg)
--- NOTE | 2024-07-08 10:36 | P.ANPRN ---
Procedure Note - Anesthesia - Nerve Block Performed Left Mateo Single Time Out Performed: Yes Date of Procedure: 07/08/24 Procedure Start Time: 06:38 Procedure Stop Time: 06:50 Location of Patient: PreOp Indication: Acute Post-Operative Pain, Requested by Surgeon Sedation Type: Sedate with meaningful contact maintained Preparation: Sterile Prep Position: Supine Needle Types: Pajunk Needle Gauge: 21 Ultrasound used to visualize needle placement: Yes Ultrasound used to observe medication spread: Yes Blood Aspirated: No Pain Paresthesia on Injection Noted: No Resistance on Injection: Normal Image Stored and Saved: Yes Events: Uneventful and Well Tolerated (Ropivacaine 0.5% 20 cc plus dexamethasone 4 mg)
[2024-07-08 10:58] VITALS: BP 125/73
== END 2024-07-08 11:24 | disposition home or self-care (01) ==
LOC: OR 05:47
PROVIDERS: ATTEND Podiatrist
CPT/HCPCS: 64447; 64448

== ENCOUNTER → 2024-09-26 | Outpatient (CLI) | payer MEDICARE, OTHER ==
[2024-09-26 12:47] VITALS: BP 117/76; PULSE 82; RESP 18; TEMP 98
--- NOTE | 2024-09-26 17:19 | P.PAINPG ---
PQRS Measure Charge Sheet Comment: A 74 yr old female with a history of severe and chronic LBP x > 10 yrs secondary to radiculopathy, spondylosis with facet arthropathy without myelopathy presents today for evaluation. Pain level is provoked at 8 /10 in intensity, constant, localized in the lumbar spine, burning in character w occasional shooting pain towards the LEs, L> R. Pain is provoked by weight bearing activities. Pain is alleviated with heat, ice, medications, topical, PT twice weekly x 4-5 wks in Nov 2021, massage therapy in Oct 2022 without relief, physician guided home exercises & stretches weekly since Oct 2022 without relief, use of a lumbar pillow, repositioning and rest. Interventional pain procedures completed include NIDA L5-S1 x1, BL MBB L3-L5 x2 Patient is currently on [place], [place]bu, Lidoderm Patient denies any side effects of the medication(s), denies excessive drowsiness or sleepiness, denies suicidal ideation and reports that the current pain medication is helping to control the pain and improve activities of daily living. Patient denies any motor or sensory deficits. Patient denies any fever or night sweats, denies any change in the bowel movements or urination. Physical Examination: -Constitutional: Cooperative. Not in acute distress . - Neurologic: Cranial nerve II to XII intact. No focal neurological deficits. - Psychatric: Alert & oriented x 3. Matching mood & appropriate affect. Judgment and insight intact. - Musculoskeletal: Cervical spine: Muscle bulk/ tone/ strength in the bilateral upper extremities normal Vertebral body tenderness to palpation over Spurling test positive Distraction test positive Facet loading test positive TTP Thoracic spine Muscle bulk / tone/ strength in the bilateral paraspinal muscles normal Vertebral body tender to palpation over Facet loading test positive TTP Lumbar spine: Motor bulk/ tone/ strength lower extremities , thigh and legs : 5/5 Deep tendon reflexes : Normal Knee Jerk. Normal Ankle Jerk . Vertebral body tenderness to palpation over L4 Segal Test positive BL L4-L5 Lumbar Facet Loading Test positive over BL L4-L5, L5-S1 Straight Leg Raise: positive at 30 degrees right side/ left side Gaenslen's Test positive Sacral spine : Severe tenderness over the Sacroiliac joint: right side / left side Range of motion: Flexion of the lumbar spine <60 degrees Range of motion: Extension of the lumbar spine <20 degrees Gaenslen's Test positive right side / left side Jose test: positive right side / left side Thigh Thrust Test positive right side / left side Sacral Thrust Test positive right side / left side Imaging: CT non contrast lumbar spine from 01/06/23 reviewed Assessment and plan: Chronic LBP secondary to L3-S1 radiculopathy, spondylosis with facet arthropathy without myelopathy Recommendation of NIDA L4-L5 #1. Risks, benefits of procedure discussed and pt verbalized understanding. Protocol for discontinuation/ continuation of medications rogelio procedure discussed. All questions answered. I have spent less than 30 minutes on patient care today. Dr Ibrahim was available by phone for the evaluation of this patient. The time was used to review the medical records including relevant urine studies and Prescription history (MAPs), review of the available imaging, evaluation and examination of the patient, coordination of care with the medical staff and if applicable referring physicians, as well as creation of the medical record - Pain Location Lower Back Non-Pharmacological Interventions: Position/Reposition PQRS Narrative: Smoking Status Current every day smoker Hx Alcohol Use (MH) Yes: Rare Home Medications: Ambulatory Orders Rosuvastatin [Crestor] 10 mg PO HS 01/23/22 ALPRAZolam [Xanax] 1 mg PO DAILY PRN 04/29/23 Budesonide/Glycopyr/Formoterol [Breztri Aerosphere Inhaler] 1 puff INHALATION BID PRN 04/29/23 HYDROcodone/APAP 5-325MG [[place] 5-325] 1 tab PO Q12HR PRN 04/29/23 Losartan/Hydrochlorothiazide [Losartan-Hctz 100-25 mg Tab] 1 tab PO HS 07/07/24 tiZANidine [Zanaflex] 4 mg PO DIRECTED PRN 07/07/24 oxyCODONE-APAP 5-325MG [Percocet 5-325 mg] 1 tab PO Q6HR PRN #30 tab 07/08/24 diazePAM [Valium] 5 mg PO DAILY PRN 1 Days #2 tab 09/26/24 Controlled Substance Measures - Controlled Substance Measures Is patient prescribed a controlled substance at discharge?: Yes When asked, does pt state using other controlled substances?: Yes If prescribed controlled substance>3 days was MAPS reviewed?: Prescribed <3 Days
== END ==
LOC: PNWHC3 12:19
PROVIDERS: ATTEND Specialist
DX: M47.27 Other spondylosis with radiculopathy, lumbosacral region (principal); G89.29 Other chronic pain; F17.200 Nicotine dependence, unspecified, uncomplicated; Z91.041 Radiographic dye allergy status; Z91.040 Latex allergy status
CPT/HCPCS: 99211

== ENCOUNTER → 2024-10-11 | Day surgery (SDC) | payer MEDICARE, OTHER ==
[~2024-10-11] MED LIST changes: -LACTATED RINGERS 1,000 ML IV SCH; +methylPREDNISolone ACETATE 80 MG/ML 1 ML VIAL ONE
[2024-10-11 09:16] VITALS: RESP 16; TEMP 97
[2024-10-11 09:47] VITALS: BP 128/68; PULSE 69
--- NOTE | 2024-10-11 09:52 | P.PCN ---
Description of Procedure: PREOPERATIVE DIAGNOSIS: 1- Lumbar Degenerative Disc Diseases 2-Lumbar spondylosis with Facet arthropathy without myelopathy. 3-lumbar spinal stenosis POSTOPERATIVE DIAGNOSIS: 1-lumbar degenerative disc disease. 2-lumbar spondylosis with facet arthropathy without myelopathy. 3-lumbar spinal stenosis. PROCEDURE injection of steroid at L4- 5 epidural space under fluoroscopic guidance. ANESTHESIA: Lidocaine 1% subcutaneously. In OR continuous pulse ox, EKG, blood pressure and verbal communication was maintained with the patient. EBL: Minimal PROCEDURE INDICATION: Before the procedure were discussed with the patient detailed procedure, alternatives, complications including infection, bleeding, nerve damage, paralysis all of which could be permanent. Patient understands and all questions were answered. PROCEDURE DESCRIPTION : After getting consent, patient in OR in prone position. Back was prepped with chlorhexidine and draped in sterile fashion. After injecting 10 mL of 1% lidocaine subcutaneously, a 20-gauge Tuohy needle was introduced at L4 5 interspace with loss of resistance technique using a syringe filled with air. Negative CSF, negative blood, negative paresthesia. Needle position was confirmed with AP and lateral view of the fluoroscope. After repeat negative aspiration 6 mL solution was injected intermittently which consists of 5 mL of preservative-free normal saline mixed with 1 mL of 80 mg Depo-Medrol. Needle was withdrawn intact. Skin was cleansed and Band-Aids was applied. No contrast was used because of patient's allergy to it. DISPOSITION / PLANS: The patient tolerated the procedure well. No complication. The patient was placed in a supine position and transferred to the recovery area in a stable condition for observation. There was no evidence of lower extremity motor or sensory deficit after the procedure. Patient was discharged from the recovery room after meeting discharge criteria. Home discharge instructions were given to the patient by the staff. The patient was reexamined prior to discharge. The patient will schedule a follow up in the clinic in 2-4 weeks.
--- NOTE | 2024-10-11 10:08 | FL ---
EXAMINATION TYPE: FL guided pain mgmt statistic DATE OF EXAM: 10/11/2024 HISTORY: Fluoroscopy time Total dose area product (DAP) in uGy*m?, mGy*cm? (or similar): 0.3565 IMPRESSION: 1. Fluoroscopy time. [facility], , 10/11/2024 10:06 AM
== END ==
LOC: ORPAIN 08:56
PROVIDERS: ATTEND Pain Medicine Interventional Pain Medicine
DX: M48.061 Spinal stenosis, lumbar region without neurogenic claudication (principal); M47.816 Spondylosis without myelopathy or radiculopathy, lumbar region; M51.369 Other intervertebral disc degeneration, lumbar region without mention of lumbar back pain or lower extremity pain; Z91.041 Radiographic dye allergy status; Z91.040 Latex allergy status
CPT/HCPCS: 62323; J1010

== ENCOUNTER → 2024-12-30 | Outpatient (CLI) | payer MEDICARE, OTHER ==
--- NOTE | 2024-12-30 11:43 | XR ---
EXAMINATION TYPE: XR lumbar spine 2 or 3V DATE OF EXAM: 12/30/2024 11:22 AM COMPARISON: CT 02/25/2024, CT lumbar spine 01/06/2023 CLINICAL INDICATION: Female, 74 years old with history of DDD Lumbar, pain TECHNIQUE: 3 view(s) obtained. FINDINGS: There is narrowing of disc height with mild vacuum phenomenon present L5-S1. Posterior disc space eli rowing is present L4-5 and L3-4. Remaining disc heights are preserved. Vertebral body heights are pre served. Vascular calcifications within the aorta. There may be fusiform prominence of the abdominal aorta anterior to the L2 level. This is not clearly evident on a comparison 02/25/2024 CT abdomen study . Recommend screening ultrasound of the abdominal aorta. IMPRESSION: 1. Degenerative disc change greatest at L5-S1. 2. Possible fusiform prominence of the mid abdominal aorta. Screening ultrasound recommended. [facility], , 12/30/2024 11:41 AM
== END | disposition home or self-care (01) ==
LOC: RADXRMAIN 11:06
PROVIDERS: ATTEND Family Medicine
DX: M51.370 Other intervertebral disc degeneration, lumbosacral region with discogenic back pain only (principal)
CPT/HCPCS: 72100

== ENCOUNTER → 2025-01-25 | Outpatient (CLI) | payer MEDICARE, OTHER ==
--- NOTE | 2025-01-27 08:55 | MR ---
INDICATION: Patient age:Female; 74 years old; Reason for study: M54.5 LUMBAGO; [facility]. COMPARISONS: Lumbar spine radiograph 12/30/2024, CT thoracolumbar spine 01/06/2023, MR thoracic spine , MRI lumbar spine 04/18/2022. TECHNIQUE: Multi planar, multi sequence imaging was performed utilizing: T1-weighted, T2-weighted, a nd turbo inversion recovery imaging of the lumbar spine. The patient was not given contrast. FINDINGS: The lumbar vertebral bodies do have preserved heights and alignment. Multilevel disc edwar ccation is present. The conus medullaris and the distal spinal cord do appear unremarkable with rega rds to their signal intensity and morphology. Anterior osteophytosis of the lower lumbar spine. Type I Modic changes involving the endplates around the L5-S1 disc. T12-L1: No significant disc pathology. No disc herniation. No central canal or neural foraminal steno sis. L1-L2: Small central disc protrusion without effacement of the anterior thecal sac. No significant c entral canal stenosis. The neural foramina are patent bilaterally. L2-L3: Small central disc protrusion without effacement of the anterior thecal sac. No significant c entral canal stenosis. The neural foramina are patent bilaterally. L3-L4: Broad-based disc bulge with minimal effacement of the anterior thecal sac. Bilateral facet ar thropathy. No significant central canal stenosis. Mild bilateral neural foraminal stenosis. L4-L5: Broad-based disc bulge with minimal effacement of the anterior thecal sac. Ligamentum flavum b uckling and bilateral facet arthropathy. No significant central canal stenosis. Mild bilateral neural foraminal stenosis. L5-S1: Broad-based disc bulge without significant effacement of the anterior thecal sac. No significa nt central canal stenosis. Bilateral facet arthropathy. Mild bilateral neural foraminal stenosis. Other significant findings: Mid abdominal aorta 3.1 cm fusiform aneurysm. Thin-walled right hepatic l obe 3.7 cm cyst corresponding to prior CT. Similar intra and extra hepatic biliary ductal dilatation with the common bile duct measuring up to 1.2 cm of the pancreatic head likely related to post cholec ystectomy physiologic. Prominent left extrarenal pelvis. IMPRESSION: 1. Mild multilevel disc degeneration with associated osteoarthritic changes. Couple of tiny central d isc protrusions of the upper lumbar spine without evidence for spinal canal stenosis. 2. Type I Modic changes involving the endplates around L5-S1 disc. 3. Abdominal aortic aneurysm measuring up to 3.1 cm. Continued annual surveillance is recommended. [facility], , 01/27/2025 8:52 AM
== END | disposition home or self-care (01) ==
LOC: RADMRIMAIN 14:10
PROVIDERS: ATTEND Family Medicine
DX: M51.360 Other intervertebral disc degeneration, lumbar region with discogenic back pain only (principal); M51.26 Other intervertebral disc displacement, lumbar region; I71.40 Abdominal aortic aneurysm, without rupture, unspecified
CPT/HCPCS: 72148